=== PATIENT | female | born 1945 | race Caucasian/White ===

== ENCOUNTER → 2017-09-03 09:14 | Outpatient (CLI) | payer MEDICARE, SELFPAY ==
--- NOTE | 2017-09-03 09:15 | RAD_ITS ---
STUDY: X-RAY - RIGHT SHOULDER REASON FOR EXAM: Shoulder pain, no specific injury. TECHNIQUE: 3 view(s) of the shoulder. COMPARISON: None. FINDINGS: Normal glenohumeral articulation. There is mild acromioclavicular arthrosis. Normal acromion. Normal humeral head and visualized proximal humerus. The soft tissue structures are unremarkable. Normal visualized pulmonary apex. RAD/Shoulder min 2 Views IMPRESSION: Mild acromioclavicular arthrosis. Electronically Signed: Jose Alejandro Barton MD at 14:19 EDT Tel , Service support ,
== END ==
PROVIDERS: Family Provider Nurse Practitioner; PCP Nurse Practitioner; Visit Provider Orthopaedic Surgery
DX: M25.511 Pain in right shoulder (principal)
CPT/HCPCS: 73030

== ENCOUNTER → 2017-09-21 16:45 | Outpatient (CLI) | payer MEDICARE, SELFPAY ==
--- NOTE | 2017-09-21 16:45 | DT_ITS ---
This patient was seen during an EMR downtime September 21, 2017 - September 28, 2017. This patient may have a combination of paper and electronic documentation or all paper documentation. All documentation is viewable within the e-chart portion of [employer] for each patient visit.
--- NOTE | 2017-09-21 17:10 | US_ITS ---
STUDY: ULTRASOUND TRANSVAGINAL CLINICAL: Female, 72 years old. Postmenopausal bleeding TECHNIQUE: Transvaginal COMPARISON: None. FINDINGS: Normal uterine size measuring 7.6 x 3.7 x 4.6 cm in maximal craniocaudal dimension. There are no myometrial masses. Normal endometrial thickness measuring 11 mm. There is a tiny vascular structure possibly representing a polyp.,. There is no fluid in the endometrial cavity. Normal uterine cervix. Normal right ovary, measuring 1.8 x 1.5 x 1.2 cm. There are multiple follicles without a dominant cyst. Normal left ovary, measuring 2.1 x 1.8 x 1.3 cm. There are multiple follicles without a dominant cyst. There is no free fluid in the pelvis. US/Transvaginal Non- IMPRESSION: Diffusely thickened endometrial with increased vascularity and possible tiny polyp. Cannot exclude endometrial hyperplasia versus neoplasia Clinical correlation recommend Electronically Signed: Apolinar Toure MD at 19:17 EDT , Service support ,
--- NOTE | 2017-09-24 | IMM_PTH ---
PATIENT: BRANDIN MAY LOC: [facility] U#:[id number] AGE/SX: 79/F ROOM: RE09/21/[address]: MICHAEL Michel : 1945 BED: DIS: SPEC #: [id number] RECD: 09/29/17 10:56 STATUS: ANMOL ARELIS #: [id number] MUNA: 09/24/17 00:[address]: Namrata Lynne NP DEPT: IMMUNOHISTOCHEMISTRY RECD BY: Keysha Diego ENTERED: 09/29/17 10:57 SP TYPE: IMMUNO OTHR DR: MICHAEL Michel NP-C Tissues: Endometrium, NOS Procedures: P53 (initial) PHYSICIAN & INSTITUTION [place] [address] SPECIMEN INFORMATION: Tissue Source: Endometrial lining Clinical Info: Abnormal uterine bleeding Specimen Number: [id number] CPT code: 21386 METHODOLOGY: Deparaffinized sections of prefer/formalin-fixed tissue or PAP/DQ stained slides are incubated with monoclonal/polyclonal antibodies/oligonucleotide probes. Localization is made via biotin free immunoperoxidase method. Appropriate controls are performed and reacted as expected. Results on target cell population are indicated in the following table: RESULTS: ANTIBODY / CLONE RESULT P53 (DO-7) negative These tests were developed and their performance characteristics determined by [facility]. They may not have been cleared or approved by the U.S. Food and Drug Administration. The FDA has determined that such clearance or approval is not necessary. INTERPRETATION: Endometrial biopsy: Negative for malignancy. Luís 09/30/17 Case has been reviewed in consultation with Dr. Valles who concurs with the above diagnosis. IDC:HOSEA
--- NOTE | 2017-09-24 | EMB_PTH ---
PATIENT: BRANDIN MAY LOC: [facility] U#:[id number] AGE/SX: 79/F ROOM: RE09/21/[address]: MICHAEL Michel : 1945 BED: DIS: SPEC #: [id number] RECD: 09/24/17 20:24 STATUS: ANMOL ARELIS #: [id number] MUNA: 09/24/17 00:[address]: Namrata Lynne NP DEPT: SURGICAL PATHOLOGY RECD BY: Keysha Diego ENTERED: 09/28/17 08:47 SP TYPE: ENDOM BX/C ROE DR: MICHAEL Michel NP-C Tissues: Endometrium, NOS Procedures: Surgery Specimen Level IV Comments: @ Ordering doctor for SUGERTRUDE edited from GERRI to THEODORE @ everton BAILEY at 09/28/17846 @ Submitting doctor edited from GERRI to THEODORE @ everton BAILEY at 09/28/1747 HEADER OPERATION: Endometrial biopsy PRE-OP DIAGNOSIS: Abnormal uterine bleeding TISSUE SUBMITTED: Endometrial lining MICROSCOPIC DIAGNOSIS Endometrial biopsy: Fragments of inactive endometrium with extensive glandular and stromal breakdown and metaplastic changes. Negative for hyperplasia or malignancy. HOSEA:alyson 09/28/17 COMMENT Immunohistochemistry ([id number]) for p53 supports the above diagnosis. Correlation with clinical findings and appropriate follow up are necessary, rebiopsy is suggested if clinically indicated. This case is discussed with Mahesh Maged on 09/29/17.. Case has been reviewed in consultation with Dr. Leary who concurs with the above diagnosis. IDC:AM MICROSCOPIC DESCRIPTION Slides are reviewed. GROSS DESCRIPTION Received is one container labeled with the patient's name and not further designated. The specimen consists of multiple fragments of hemorrhagic soft tissue that in aggregate measure 2.5 x 1.5 x 0.1 cm. The specimen is totally submitted in one cassette. / HOSEA:alyson 09/25/17 TC:5 CPT: 61875
[2017-09-25 20:22] LABS: Prolactin 11.2 ng/mL; Thyroid Stim Hormone (TSH) 1.99 uIU/mL (0.358-3.74)
[2017-09-25 20:24] LABS: Hemoglobin 15.7 g/dl (12.0-15.0); Mean Corp Hgb Conc 32.7 g/gl (32-36); Mean Corpuscular Hgb 30.4 pg (27.0-32.0); Mean Corpuscular Volume 92.8 fL (81-99); Mean Platelet Vol. 11.5 fl (6.2-12.0); Platelet Count 260 K/mm3 (150-450); RBC Distribution Width CV 13.6 % (11.6-14.6); RBC Distribution Width SD 44.7 fl (35.1-43.9); Red Blood Count 5.17 M/mm3 (4.2-5.4); White Blood Count 9.4 K/mm3 (4.4-11.0)
[2017-09-25 20:25] LABS: Absolute Lymphocyte Count 2.22 X10^3/ul (0.83-4.51); Absolute Neutrophil Count 6.2 X10^3/uL (2.0-7.7); Basophil# 0.07 X10^3/uL; Basophil% 0.7 % (0-1); Eosinophil# 0.11 X10^3/uL; Eosinophils% 1.2 % (0-5); Lymphocyte # 2.22 X10^3/ul (4.0); Lymphocyte % 23.7 % (19-41); Monocyte# 0.76 X10^3/uL; Monocyte% 8.1 % (0-10); Neutrophil % 66.1 % (47-70); POSITIVE COUNT NO; POSITIVE DIFFERENTIAL NO; POSITIVE MORPHOLOGY NO
[2017-09-25 20:26] LABS: International Normalized Ratio 1.1; Partial Thromboplast Time 30.7 Seconds (24.1-36.2); Prothrombin Time (Protime)PT. 13.8 SECONDS (11.7-14.9)
== END ==
PROVIDERS: Family Provider Nurse Practitioner; PCP Nurse Practitioner; Visit Provider Nurse Practitioner Gerontology
DX: N95.0 Postmenopausal bleeding (principal); N93.9 Abnormal uterine and vaginal bleeding, unspecified
CPT/HCPCS: 36415; 76830; 84146; 84443; 85025; 85610; 85730; 88305; 88342

== ENCOUNTER → 2017-09-24 09:03 | Outpatient (CLI) | payer MEDICARE, SELFPAY ==
--- NOTE | 2017-09-24 09:03 | DT_ITS ---
This patient was seen during an EMR downtime September 21, 2017 - September 28, 2017. This patient may have a combination of paper and electronic documentation or all paper documentation. All documentation is viewable within the e-chart portion of [employer] for each patient visit.
== END ==
PROVIDERS: Visit Provider Nurse Practitioner Women's Health
DX: N93.9 Abnormal uterine and vaginal bleeding, unspecified (principal)

== ENCOUNTER 2017-10-22 11:34 | Day surgery (SDC) | payer MEDICARE, SELFPAY ==
--- NOTE | 2017-10-19 10:39 | EKG12_ITS ---
Test Reason : PRE OP Blood Pressure : / mmHG Vent. Rate : 051 BPM Atrial Rate : 051 BPM P-R Int : 188 ms QRS Dur : 082 ms QT Int : 428 ms P-R-T Axes : 039 -22 061 degrees QTc Int : 394 ms Sinus bradycardia Minimal voltage criteria for LVH, may be normal variant ST abnormality, possible digitalis effect Abnormal ECG Confirmed by AZAM MELENDEZ, CLAIRE ([id number]), television news video editor BERNA FLOREZ ([id number]) on 10/22/2017 3:02:26 PM Referred By: Bailey Molina Confirmed By:CLAIRE NASCIMENTO MD
--- NOTE | 2017-10-19 10:40 | PCM.HPOB.BLA ---
- Problem List (1) Post-menopausal bleeding Status: Acute History and Physical Date of Admission: 10/22/17 MR#:[id number]:[id number] Name: BRANDIN MAY [facility] #:[id number] : 1945 Provider:Bailey Molina MD Age/Sex: 72/F [place] [place]igned Intake Vital Signs 10/19/17 Height 5 ft 2 in 10/19/17 Weight: 249 lb 10/19/17 Body Mass Index (BMI) 45.5 10/19/17 Blood Pressure 145/81 Intake Visit Reasons: Pre Op D&C Hoop Expander Required: No Accompanied by: self Is patient in pain?: No Allergies adhesive tape Adverse Reaction (Verified 10/19/17 10:03) REDNESS TO SKIN Vxdqgjr-Qgf-Idg Reductase Inhibitor Adverse Reaction (Verified 10/19/17 10:03) Other Medications Acetaminophen [Tylenol] 500 - 1,000 mg PO Q6H PRN PRN 12/22/13 [History Confirmed 10/19/17] Amlodipine [Norvasc] 5 mg PO DAILY 12/22/13 [History Confirmed 10/19/17] Enalapril Maleate [Vasotec] 20 mg PO BID 12/22/13 [History Confirmed 10/19/17] Etodolac 400 mg PO DAILY 12/22/13 [History Confirmed 10/19/17] Fluticasone 0.05% [Flonase Nasal [place]] 1 spray NASAL DAILY PRN 12/22/13 [History Confirmed 10/19/17] Lorazepam [Ativan] 0.5 mg PO DAILY PRN PRN 12/22/13 [History Confirmed 10/19/17] Omeprazole [Prilosec] 20 mg PO DAILY 12/22/13 [History Confirmed 10/19/17] Albuterol IH (ProAir) [Proair Hfa (SP)Vent Pts] 2 puff INHALATION Q4H PRN PRN 06/12/16 [History Confirmed 10/19/17] Cholecalciferol (Vitamin D3) [Vitamin D3] 2,000 unit PO DAILY 06/12/16 [History Confirmed 10/19/17] Aspirin E.C. [Ecotrin] 81 mg PO MOWEFR 10/15/17 [History Confirmed 10/19/17] Turmeric/Turmeric Root Extract [Turmeric 500 mg Capsule] 1 ea PO BID 10/15/17 [History Confirmed 10/19/17] Is last menstrual period known: No Post menopausal: Yes Patient : No : No PFSH Medical History Diabetes (Acute) History of hysteroscopy (Acute) Surgical History H/O total knee replacement (Acute) H/O tubal ligation (Acute) gallbladder removed (Acute) Family History Father Hypertension Social History adopted: No housing: house number of children: 2 current occupational status: employed current occupation: [employer] Smoking Status: Never smoker alcohol intake: never substance use type: does not use seatbelt use: always do you feel safe at home: Yes additional social history: HPI Pre Op D&C: Details: BRANDIN MAY is a 72 year old who presents for postmenopausal bleeding. SHe initially had some malaise and din't feel well and then started bleeding, she was seen within a few days and had a biopsy that was normal but had a lot of tissue. it was recommended to have sampling and had a thickened endometrium. last hgA1C was 5.7. Pregancy History 3 Elective abortions Hx Para 2 Spontaneous abortions Hx # Term Pregnancies Ectopic pregnancies Hx # Pregnancies Multiple births # of living children 2 Past Pregnancies Del. Date Name GA/Weeks Outcome Route Bth Weight Gen Labor Lgth Anesthesia Del [facility] Provider FOB Unknown 1973- Mima Unknown 1976- Lee IBARRA Const Constitutional: Denies poor appetite, headache(s), fever(s), increased appetite, weight gain, weight loss or fatigue Cardio Card: Denies chest pain Resp Resp: Denies dyspnea or cough GI GI: Reports as per HPI; denies vomiting, nausea, abdominal pain or constipation : Reports as per HPI; denies urinary urgency, vaginal discharge, urinary frequency, vaginal itching, vaginal odor, vaginal dryness, urinary incontinence, urinary hesitancy, difficulty urinating, painful urination or nipple discharge Skin Skin/Breast: Denies breast lump, breast pain, breast skin changes, nipple discharge or change in hair Exam Const General: cooperative, healthy appearing, comfortable, no acute distress, well developed Nutritional Appearance: average body habitus Orientation: alert HENMT Head: normal to inspection, normocephalic Neck Neck: normal visual inspection, trachea midline Thyroid: thyroid normal Resp Effort & Inspection: normal respiratory effort GI Inspection: normal to inspection, non-distended Palpation: soft, no hepatosplenomegaly Skin General: no rashes or lesions noted Assessment & Plan Problems 1. Benign hypertension I10 2. Type 2 diabetes mellitus without complication, without long-term current use of insulin E11.9 3. Morbid obesity E66.01 4. Dyslipidemia E78.5 Plan recommend d and c hysteroscopy. discussed surgical risks including risks of anesthesia, infection, bleeding, injury to bowel, bladder or blood vessels, and patient wishes to proceed with surgery. 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
[2017-10-22] VITALS (7 sets, daily range): BP systolic 135–152; BP diastolic 78–85; PULSE 59–68; RESP 16–18; TEMP 36.5–36.9; O2SAT 95–98; BMI 43.9
--- NOTE | 2017-10-22 | IMM_PTH ---
PATIENT: BRANDIN MAY LOC: [facility] [place] U#:[id number] AGE/SX: 72/F ROOM: RE10/22/[address]: Dr. Bailey Molina MD : 1945 BED: DIS: 10/22/2017 SPEC #: [id number] RECD: 10/26/17 13:00 STATUS: ANMOL REEbony #: [id number] MUNA: 10/22/17 00:[address]: Bailey Molina DEPT: IMMUNOHISTOCHEMISTRY RECD BY: Keysha Diego ENTERED: 10/26/17 13:00 SP TYPE: IMMUNO OTHR DR: Orquidea Cortes, PLUSH WEAVER-C Tissues: Endometrium, NOS Procedures: p16 (initial) KI-67 (add) PHYSICIAN & [place] [address] SPECIMEN INFORMATION: Tissue Source: Endometrial curettings Clinical Info: Postmenopausal bleeding Specimen Number: [id number] CPT code: 37336, 61920 METHODOLOGY: Deparaffinized sections of prefer/formalin-fixed tissue or PAP/DQ stained slides are incubated with monoclonal/polyclonal antibodies/oligonucleotide probes. Localization is made via biotin free immunoperoxidase method. Appropriate controls are performed and reacted as expected. Results on target cell population are indicated in the following table: RESULTS: ANTIBODY / CLONE RESULT P16 (E6H4) positive, patchy and focal Ki-67 (30-9) negative These tests were developed and their performance characteristics determined by [facility]. They may not have been cleared or approved by the U.S. Food and Drug Administration. The FDA has determined that such clearance or approval is not necessary. INTERPRETATION: Endometrial curettings: Fragments of detached and unoriented fragments of squamous epithelium with minimal changes suspicious for HPV cytopathic effects. HOSEA:alyson 10/27/17
[2017-10-22 12:21] LABS: Anion Gap 6 (5-15); BUN 24 mg/dL (7-18); BUN/Creat Ratio 24.4 RATIO (10-20); Calcium,Total 9.1 mg/dL (8.5-10.1); Chloride 108 mmol/L (98-107); Creatinine, Serum 0.98 mg/dL (0.55-1.02); EST Glomerular Filtration Rate 60 mL/min (>60); Est Glom Filt Rate - Afr Amer 72 mL/min (>60); Estimated Creatinine Clearance 44.19 ml/min; Glucose 92 mg/dL (74-106); Sodium Level 145 mmol/L (136-145)
[2017-10-22 12:26] LABS: Bedside Glucose 98 mg/dL (70-110)
--- NOTE | 2017-10-22 13:20 | EMB_PTH ---
PATIENT: BRANDIN MAY LOC: [facility] [place] U#:[id number] AGE/SX: 72/F ROOM: RE10/22/[address]: Dr. Bailey Molina MD : 1945 BED: DIS: 10/22/2017 SPEC #: [id number] RECD: 10/23/17 06:57 STATUS: ANMOL ARELIS #: [id number] MUNA: 10/22/17 13:[address]: Bailey Molina DEPT: SURGICAL PATHOLOGY RECD BY: Lacho Mock ENTERED: 10/23/17 11:40 SP TYPE: ENDOEdilson BX/C ROE DR: Orquidea Cortes SHELL PLATERMaty Tissues: Endometrium, NOS Procedures: Surgery Specimen Level IV HEADER OPERATION: Hysteroscopy, dilation and curettage PRE-OP DIAGNOSIS: Postmenopausal bleeding TISSUE SUBMITTED: Endometrial curettings MICROSCOPIC DIAGNOSIS Endometrial curettings: Fragments of inactive endometrium. Detached and unoriented fragments of squamous epithelium with atrophic changes and focal minimal changes suspicious for HPV cytopathic effects.. See comment. SJ:alyson 10/26/17 COMMENT Results from immunohistochemistry ([id number]) for surrogate HPV marker (p16) will be reported separately. Please make reference to previous specimen ([id number]), endometrial biopsy with diagnosis of inactive endometrium with extensive glandular and stromal breakdown and metaplastic changes. Case has been reviewed in consultation with Dr. Leary who concurs with the above diagnosis. IDC:AM MICROSCOPIC DESCRIPTION Slides are reviewed. GROSS DESCRIPTION Received in fixative is one container labeled with the patient's name and designated endometrial curettings. The specimen consists of multiple irregular fragments of dark manzo soft tissue that in aggregate measure 2 x 1 x <0.1 cm. The specimen is totally submitted in one cassette. / AM:alyson 10/23/17 TC:5 CPT: 02606
--- NOTE | 2017-10-22 14:05 | PCM.OPRPT ---
Problem List (1) Post-menopausal bleeding Status: Acute Report of Operation Date of Procedure: 10/22/17 Pre-Operative Diagnosis: postmenopausal bleeding Post-Operative Diagnosis: same Surgery/Procedure Performed:: d and c hysteroscopy Description of Surgical Findings:: Mild irregularity to the posterior wall Type of Anesthesia:: Local MAC Special Medications: none Specimen's removed: emc Drains: none Estimated Blood Loss (mL): Minimal Fluids Replaced: crystalloid Description of Procedure: Patient was prepped and draped in a normal sterile fashion under MAC anesthesia. A weighted speculum was placed in the vagina and the anterior lip of the cervix was grasped with a single-tooth tenaculum. A paracervical block was placed with 1% lidocaine. Cervix was progressively dilated to allow passage of a 5 mm hysteroscope. The lining was fully visualized and noted to have a mild abnormality to the posterior wall. Uterine sounded to 8 cm. Curettage was performed and a scant amount was collected, sent to pathology. All instruments were removed from the vagina and excellent hemostasis was noted. Patient was awoken and taken to recovery in stable condition. Grafts/Implants Used: none - Complications None - Admit VTE Documentation VTE Present on Admission: No VTE Mechan Device Prophylaxis: SCD's
--- NOTE | 2017-10-22 14:07 | PCM.DC.D&C ---
Discharge Diet: No Restrictions Discharge Activity: Return to Normal Activity, May Shower, May Take a Tub Bath Allergies/Adverse Reactions: Allergies adhesive tape Adverse Reaction (Verified 10/19/17 10:03) REDNESS TO SKIN Ubpbsfd-Ibh-Yjs Reductase Inhibitor Adverse Reaction (Verified 10/19/17 10:03) Other Medications to take at Discharge Acetaminophen [Tylenol] 500 - 1,000 mg PO Q6H PRN PRN 12/22/13 Amlodipine [Norvasc] 5 mg PO DAILY 12/22/13 Enalapril Maleate [Vasotec] 20 mg PO BID 12/22/13 Etodolac 400 mg PO DAILY 12/22/13 Fluticasone 0.05% [Flonase Nasal [place]] 1 spray NASAL DAILY PRN 12/22/13 Lorazepam [Ativan] 0.5 mg PO DAILY PRN PRN 12/22/13 Omeprazole [Prilosec] 20 mg PO DAILY 12/22/13 Albuterol IH (ProAir) [Proair Hfa (SP)Vent Pts] 2 puff INHALATION Q4H PRN PRN 06/12/16 Cholecalciferol (Vitamin D3) [Vitamin D3] 2,000 unit PO DAILY 06/12/16 Aspirin E.C. [Ecotrin] 81 mg PO MOWEFR 10/15/17 Turmeric/Turmeric Root Extract [Turmeric 500 mg Capsule] 1 ea PO BID 10/15/17 Primary Care Physician: Orquidea Cortes [Primary Care Provider] - Test Results: Please Follow Up With: Bailey Molina MD - [phone]
== END 2017-10-22 15:44 | disposition home or self-care (01) ==
LOC: SDC 11:36 → AC 11:36
PROVIDERS: Family Provider Nurse Practitioner; PCP Nurse Practitioner; Visit Provider Obstetrics & Gynecology
PROC: 0UDB8ZZ Extraction of Endometrium, Via Natural or Artificial Opening Endoscopic (ICD-10-PCS; CPT 58558; principal; 2017-10-22 13:10)
DX: N95.0 Postmenopausal bleeding (principal); I10 Essential (primary) hypertension; E11.9 Type 2 diabetes mellitus without complications; E78.00 Pure hypercholesterolemia, unspecified; K21.9 Gastro-esophageal reflux disease without esophagitis; F32.9 Major depressive disorder, single episode, unspecified; F41.9 Anxiety disorder, unspecified; E66.01 Morbid (severe) obesity due to excess calories; Z68.41 Body mass index [BMI] 40.0-44.9, adult; Z78.0 Asymptomatic menopausal state; Z79.82 Long term (current) use of aspirin; Z79.52 Long term (current) use of systemic steroids; Z79.899 Other long term (current) drug therapy
CPT/HCPCS: 58558; 80048; 82962; 86850; 86900; 88305; 88341; 88342; 93005; J7120

== ENCOUNTER → 2017-11-24 16:31 | Outpatient (CLI) | payer MEDICARE, SELFPAY ==
--- NOTE | 2017-11-24 16:33 | BI_ITS ---
MAMMOGRAPHY - BILATERAL SCREENING 3-D MITCHEL SYNTHESIS REASON FOR EXAM: Female, 72 years old. Bilateral Screening 3-D tomosynthesis PERTINENT HISTORY: Asymptomatic. Family breast carcinoma, paternal grandmother age 60. TECHNIQUE: 2-D mammograms and 3-D Mitchel synthesis of the breast (s) were performed. CAD was performed. COMPARISON: 10/20/2016 through 09/27/2014. FINDINGS: The breast composition is almost entirely fat. No new asymmetric density, dominant mass, dense spiculated masses, abnormal clustered microcalcifications, architectural distortion, skin thickening or nipple retraction identified. Coarse benign-appearing calcifications. No new abnormality identified with tomosynthesis. There has been no significant change since the prior study. BI/SCREENING MAMM (CAD), BILAT IMPRESSION: No mammographic signs of malignancy. Routine yearly mammograms recommended. ASSESSMENT CATEGORY: BIRADS Category 2: Benign. A letter regarding these results will be sent to the patient by the facility within 30 days. FOLLOW UP RECOMMENDATION: Yearly follow up mammogram recommended. (A) Negative results should not deter biopsy as a palpable lesion should be followed on clinical grounds and biopsy performed if clinically persistent for 3 months or increasing size. Approximately 10% of breast cancers are not detected by mammography. A normal mammogram should not delay biopsy of a clinically suspicious abnormality. . Electronically Signed: Piero Morejon, at 17:36 EDT Tel , Service support ,
== END ==
PROVIDERS: Family Provider Nurse Practitioner; PCP Nurse Practitioner; Visit Provider Nurse Practitioner
DX: Z12.31 Encounter for screening mammogram for malignant neoplasm of breast (principal)
CPT/HCPCS: 77063; 77067

== ENCOUNTER → 2018-02-05 15:10 | Outpatient (CLI) | payer MEDICARE, SELFPAY ==
[2018-02-05 16:43] LABS: Microalbumin,Random Urine 29.9 mg/L (NO RANGE EST.); Microalbumin:Creatinine Ratio 14.7 mg/g CRE (<30 mg/g CRE)
== END ==
PROVIDERS: Family Provider Nurse Practitioner; PCP Nurse Practitioner; Referring Provider Nurse Practitioner; Visit Provider Nurse Practitioner
DX: E11.9 Type 2 diabetes mellitus without complications (principal)
CPT/HCPCS: 82043; 82570

== ENCOUNTER → 2018-03-23 13:39 | Outpatient (CLI) | payer MEDICARE, SELFPAY ==
--- NOTE | 2018-03-23 13:53 | BD_ITS ---
STUDY: DUAL ENERGY X-RAY ABSORPTIOMETRY / DXA REASON FOR EXAM: Female, 72 years old. The patient is postmenopausal. Loss of height. TECHNIQUE: Bone Mineral Density (BMD) measurements of lumbar spine and bilateral hips were obtained. COMPARISON: Comparison is made with prior study dated October 16, 2015. FINDINGS: Lumbar Spine (L1-L4): g/cm2 (1.324) / T-score (1.0) / Z-score (2.7) Findings are suggestive of normal bone density with a low fracture risk. Left Femur Total: g/cm2 (0.972) / T-score (-0.3) / Z-score (1.2) Left Femoral Neck: g/cm2 (0.903) / T-score (-1.0) / Z-score (0.7) Right Femur Total: g/cm2 (0.949) / T-score (-0.5) / Z-score (1.0) Right Femoral Neck: g/cm2 (0.919) / T-score (-0.9) / Z-score (0.9) The T-Scores on the most recent prior examination were: Lumbar Spine (L1-L4): There has been improvement of bone density since the previous examination. Left Femur Total: which represents a worsening of 3.6%. Right Femur Total: which represents a worsening of 2.0%. BD/Dexa Bone Density Study IMPRESSION: The patient is considered normal as outlined below according to World Saurav Organization (WHO) criteria with a low fracture risk. There has been worsening of bone density since the previous examination. Reference Information: The T-score is the number of standard deviations above or below the standard which is normal for young adults at their peak bone mineral density. The World Health Organization (WHO) interprets the T-scores as follows: Above -1 Normal bone density Between -1 and -2.5 Osteopenia Equal to / or below -2.5 Osteoporosis As a practical clinical guideline, osteopenia may be graded as follows: Mild -1 through -1.5 Moderate -1.6 through -2.0 Severe -2.1 through -2.4 The Z-score is the number of standard deviations above or below age-matched controls. A Z-score of less than -1.5 would be considered abnormal. References: 1. NIH Osteoporosis and Related Bone Diseases http://www.osteo.org 2. International Society for Clinical Densitometry http://www.iscd.org 3. National Osteoporosis Foundation http://www.nof.org Electronically Signed: Yon Terry MD at 15:41 EST Tel [phone], Service support ,
== END ==
PROVIDERS: Family Provider Nurse Practitioner; PCP Nurse Practitioner; Visit Provider Nurse Practitioner
DX: Z78.0 Asymptomatic menopausal state (principal)
CPT/HCPCS: 77080

== ENCOUNTER → 2018-11-12 10:48 | Outpatient (CLI) | payer MEDICARE, SELFPAY ==
--- NOTE | 2018-11-12 10:52 | RAD_ITS ---
STUDY: X-RAY CHEST REASON FOR EXAM: Female, 73 years old. Cough and chest pain TECHNIQUE: PA and lateral views of the chest. COMPARISON: 03/16/2017 FINDINGS: There are interstitial fibrotic changes of the lungs. There is no demonstrated pleural abnormality. Normal size heart. Normal mediastinum and chris. Normal visualized pulmonary arteries. Normal visualized aortic arch and descending thoracic aorta. There are diffuse degenerative changes of the visualized thoracic spine. Normal visualized ribs, clavicles, and shoulders. There is no demonstrated abnormality of the visualized soft tissue structures of the upper abdomen. RAD/Chest PA and Lateral IMPRESSION: No acute pulmonary process Electronically Signed: Lupillo Guido MD at 11:23 EDT , Service support ,
[2018-11-12 13:04] LABS: BNP,B-Type NATRIURETIC PEPTIDE 14.2 pg/mL (0-100)
[2018-11-12 13:28] LABS: D-Dimer Quantitative (DVT/PE) 0.62 FEU/ug/m (0.27-0.49)
== END ==
LOC: HPRAD 10:49 → LABSPEC 12:20
PROVIDERS: Family Provider Nurse Practitioner; PCP Nurse Practitioner; Referring Provider Nurse Practitioner; Visit Provider Nurse Practitioner
DX: R05 Cough (principal); R06.02 Shortness of breath; T17.308A Unspecified foreign body in larynx causing other injury, initial encounter; X58.XXXA Exposure to other specified factors, initial encounter; Y93.9 Activity, unspecified; Y92.9 Unspecified place or not applicable; Y99.9 Unspecified external cause status
CPT/HCPCS: 71046; 83880; 85379

== ENCOUNTER → 2018-11-12 14:17 | Outpatient (CLI) | payer MEDICARE, SELFPAY ==
--- NOTE | 2018-11-12 14:46 | CT_ITS ---
STUDY: CTA CHEST REASON FOR EXAM: Female, 73 years old. Cough. Chest pain. Elevated d-dimer. RADIATION DOSAGE (If Supplied By Facility): CTDIvol = ( 11.43 ) mGy, DLP = ( 472.50 ) mGycm TECHNIQUE: The examination was performed with the intravenous administration of 100 IV Isovue 300. Post-processing of the angiographic images was performed, with multiplanar reformation and 3D reconstruction. Individualized dose optimization techniques were used for this CT. COMPARISON: X-ray. FINDINGS: Normal enhancement of the main pulmonary artery and right and left pulmonary arteries. Normal enhancement of the bilateral peripheral pulmonary arteries. There is no demonstrated pulmonary embolism. There is atherosclerotic calcification of the aortic arch with tortuosity. There is no demonstrated aortic dissection. Normal heart and pericardium. Normal mediastinum. Normal hilar regions. Normal visualized trachea and bronchi. The lungs are well expanded. There are mild fibrotic densities and granulomatous calcifications. Normal pleura. Normal chest wall structures. Mild degenerative change of the spine. Compression deformity in the lower thoracic spine. There is increased thoracic kyphosis. Normal visualized upper abdomen. CT/CTA Chest W/WO Contrast IMPRESSION: CTA chest examination, without a demonstrated pulmonary embolism or arterial dissection. Electronically Signed: Luis Fernando Zafar MD at 15:33 EDT , Service support ,
[2018-11-12 15:05] LABS: CREATININE FINGERSTICK 0.8 mg/dL (0.55-1.02)
== END ==
PROVIDERS: Family Provider Nurse Practitioner; PCP Nurse Practitioner; Referring Provider Nurse Practitioner; Visit Provider Nurse Practitioner
DX: R74.9 Abnormal serum enzyme level, unspecified (principal); R05 Cough; R06.02 Shortness of breath; T17.308A Unspecified foreign body in larynx causing other injury, initial encounter; X58.XXXA Exposure to other specified factors, initial encounter; Y93.9 Activity, unspecified; Y92.9 Unspecified place or not applicable; Y99.9 Unspecified external cause status
CPT/HCPCS: 71046; 71275; 83880; 85379; Q9967

== ENCOUNTER → 2018-11-19 07:49 | Outpatient (CLI) | payer MEDICARE, SELFPAY ==
--- NOTE | 2018-11-19 08:03 | RAD_ITS ---
STUDY: X-RAY - ESOPHAGUS (BARIUM SWALLOW) WITH FLUOROSCOPY REASON FOR EXAM: Female, 73 years old. Dysphagia. TECHNIQUE: 17 view(s) of the esophagus were obtained following swallowing of barium. FLUOROSCOPY TIME (if supplied): (0:24) minutes/seconds COMPARISON: None. FINDINGS: There is no demonstrated esophageal foreign body. There is no demonstrated stricture or mucosal abnormality. There is a small hiatal hernia of the fundus of the stomach. The patient ingests the 12 mm tablet and barium without any difficulty. There is atherosclerotic calcification of the aortic arch with tortuosity of the descending aorta. Normal visualized pulmonary parenchyma. There are diffuse degenerative changes of the visualized thoracic spine. RAD/Esophagus Only IMPRESSION: Small sliding hiatal hernia without gastroesophageal reflux. Electronically Signed: Yon Terry, at 14:41 EDT , Service support ,
== END ==
PROVIDERS: Family Provider Nurse Practitioner; PCP Nurse Practitioner; Referring Provider Nurse Practitioner; Visit Provider Nurse Practitioner
DX: R13.10 Dysphagia, unspecified (principal); R05 Cough; R06.02 Shortness of breath; T17.308A Unspecified foreign body in larynx causing other injury, initial encounter; X58.XXXA Exposure to other specified factors, initial encounter; Y93.9 Activity, unspecified; Y92.9 Unspecified place or not applicable; Y99.9 Unspecified external cause status
CPT/HCPCS: 74220

== ENCOUNTER → 2019-04-04 15:46 | Outpatient (CLI) | payer MEDICARE, SELFPAY ==
--- NOTE | 2019-04-04 15:49 | BI_ITS ---
MAMMOGRAPHY - BILATERAL SCREENING REASON FOR EXAM: Female, 73 years old. Routine annual screening examination. PERTINENT HISTORY: Grandmother with breast cancer. TECHNIQUE: Digital bilateral breast mitchel (3D mammographic acquisition) in the CC and MLO projections. 2-D mediolateral oblique (MLO) and craniocaudad (CC) views of both breasts were obtained. CAD: Full Field Digital Mammography with Computer Added Detection was performed. COMPARISON: Comparison is made with prior study dated November 24, 2017 and October 20, 2016. FINDINGS: Breast Composition: The breasts are almost entirely fatty. There are no dominant masses or suspicious calcifications. No other significant abnormalities are identified. There has been no significant change since the prior study. BI/SCREEN MAMM (CAD) W/MITCHEL BILAT IMPRESSION: Stable bilateral screening mammogram. Yearly follow-up mammogram recommended. (A) ASSESSMENT CATEGORY: BIRADS Category 1: Negative. A letter regarding these results will be sent to the patient by the facility within 30 days. Approximately 10% of breast cancers are not detected by mammography. A normal mammogram should not delay biopsy of a clinically suspicious abnormality. [id number] Electronically Signed: Yon Terry, at 10:10 EST , Service support ,
== END ==
PROVIDERS: Family Provider Nurse Practitioner; PCP Nurse Practitioner; Referring Provider Nurse Practitioner; Visit Provider Nurse Practitioner
DX: Z12.31 Encounter for screening mammogram for malignant neoplasm of breast (principal)
CPT/HCPCS: 77063; 77067

== ENCOUNTER → 2020-04-05 10:10 | Outpatient (CLI) | payer MEDICARE, SELFPAY ==
--- NOTE | 2020-04-05 10:12 | BI_ITS ---
MAMMOGRAPHY - BILATERAL SCREENING REASON FOR EXAM: Female, 74 years old. Routine annual screening examination. PERTINENT HISTORY: Grandmother with breast cancer. TECHNIQUE: Digital bilateral breast mitchel (3D mammographic acquisition) in the CC and MLO projections. 2-D mediolateral oblique (MLO) and craniocaudad (CC) views of both breasts were obtained. CAD: Full Field Digital Mammography with Computer Added Detection was performed. COMPARISON: Comparison is made with prior examination dated 04/04/2019 and 11/24/2017. FINDINGS: Breast Composition: The breasts are almost entirely fatty. There are no dominant masses or suspicious calcifications. No other significant abnormalities are identified. There has been no significant change since the prior study. BI/SCREEN MAMM (CAD) W/MITCHEL BILAT IMPRESSION: Stable bilateral screening mammogram. Yearly follow-up mammogram recommended. (A) ASSESSMENT CATEGORY: BIRADS Category 1: Negative. A letter regarding these results will be sent to the patient by the facility within 30 days. Approximately 10% of breast cancers are not detected by mammography. A normal mammogram should not delay biopsy of a clinically suspicious abnormality. [id number] Electronically Signed: Yon Terry, at 11:21 EST , Service support ,
--- NOTE | 2020-04-05 10:16 | BD_ITS ---
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 COMPARISON: Comparison is made with prior study dated 03/23/2018. FINDINGS: Lumbar Spine (L1-L4): g/cm2 (1.400) / T-score (1.7) / Z-score (3.4) Findings are suggestive of normal bone density with a low fracture risk. Left Femur Total: g/cm2 (1.005) / T-score (0.0) / Z-score (1.6) Left Femoral Neck: g/cm2 (0.903) / T-score (-1.0) / Z-score (0.8) Right Femur Total: g/cm2 (0.998) / T-score (-0.1) / Z-score (1.5) Right Femoral Neck: g/cm2 (0.949) / T-score (-0.6) / Z-score (1.2) The T-Scores on the most recent prior examination were: Lumbar Spine (L1-L4): There has been improvement of bone density since the previous examination. Left Femur Total: which represents an improvement of 3.4%. Right Femur Total: which represents an improvement of 5.2%. BD/Dexa Bone Density Study IMPRESSION: The patient is considered normal as outlined below according to World Saurav Organization (WHO) criteria with a low fracture risk. There has been improvement of bone density since the previous examination. Reference Information: The T-score is the number of standard deviations above or below the standard which is normal for young adults at their peak bone mineral density. The World Health Organization (WHO) interprets the T-scores as follows: Above -1 Normal bone density Between -1 and -2.5 Osteopenia Equal to / or below -2.5 Osteoporosis As a practical clinical guideline, osteopenia may be graded as follows: Mild -1 through -1.5 Moderate -1.6 through -2.0 Severe -2.1 through -2.4 The Z-score is the number of standard deviations above or below age-matched controls. A Z-score of less than -1.5 would be considered abnormal. References: 1. NIH Osteoporosis and Related Bone Diseases www osteo.org 2. International Society for Clinical Densitometry www iscd.org 3. National Osteoporosis Foundation www nof.org Electronically Signed: Yon Terry, at 12:26 EST , Service support ,
== END ==
PROVIDERS: PCP Nurse Practitioner; Referring Provider Nurse Practitioner; Visit Provider Nurse Practitioner
DX: Z78.0 Asymptomatic menopausal state (principal); Z12.31 Encounter for screening mammogram for malignant neoplasm of breast
CPT/HCPCS: 77063; 77067; 77080

== ENCOUNTER 2020-09-16 08:13 | Inpatient (IN) | payer MEDICARE, SELFPAY ==
[2020-09-16] VITALS (19 sets, daily range): BP systolic 104–151; BP diastolic 51–74; PULSE 61–96; RESP 16–22; TEMP 36.9–37.8; O2SAT 88–97; BMI 46.7
--- NOTE | 2020-09-16 09:08 | CT_ITS ---
EXAM: CT ABDOMEN AND PELVIS WITH INTRAVENOUS CONTRAST CLINICAL INDICATION: Abdominal pain TECHNIQUE: Helically acquired images were obtained of the abdomen and pelvis with intravenous contrast. This CT exam was performed using one or more of the following dose reduction techniques: automated exposure control, adjustment of the mA and/or kV according to patient size, and/or use of iterative reconstruction technique. This report was created using Vinted report generation technology. CONTRAST: Oral Gastrografin and IV injection of 100mL Isovue-370 COMPARISON: None. FINDINGS: LOWER THORAX: Mild atelectasis or scarring in the lower lungs. No cardiomegaly. No significant pericardial effusion. ABDOMEN: LIVER: Unremarkable. Homogeneous. No focal mass. GALLBLADDER AND BILE DUCTS: Status post cholecystectomy. No intra- or extrahepatic biliary ductal dilation. PANCREAS: Unremarkable. No focal cystic or solid mass. SPLEEN: Unremarkable. Normal size without focal cystic or solid mass. ADRENALS: Unremarkable. No nodules. KIDNEYS AND URETERS: 2.9 cm left renal cyst appears to be simple. Normal renal size and position. No hydronephrosis. STOMACH AND BOWEL: Unremarkable. No stomach or bowel distention. No focal inflammatory change. PELVIS: APPENDIX: Thickening of the appendix measuring up to 11 mm with mild stranding concerning for early acute appendicitis. BLADDER: Unremarkable. REPRODUCTIVE: Unremarkable as visualized. No mass. ABDOMEN and PELVIS: INTRAPERITONEAL SPACE: Unremarkable. No ascites or other fluid collection. No free air. BONES/JOINTS: Degenerative changes in the spine. Mild compression fracture of T11 and L2 vertebrae probably chronic. Grade 1 anterolisthesis of L4 over L5. No suspicious lytic or blastic abnormality. SOFT TISSUES: Unremarkable. No discrete abdominal or pelvic wall hernia. VASCULATURE: Unremarkable. Abdominal aorta is non-dilated. LYMPH NODES: Unremarkable. No enlarged lymph nodes. CT/Abdomen/Pelvis WITH Contrast IMPRESSION: 1. Status post cholecystectomy. 2. Thickening of the appendix measuring up to 11 mm with mild stranding concerning for acute appendicitis. Electronically Signed: Bob Mcfarland MD at 11:43 EDT Tel , Service support ,
--- NOTE | 2020-09-16 09:12 | EDS_ITS ---
HPI HPI - GI History of Present Illness Chief Complaint: Abd Pain Informant: patient Abdominal Pain/Flank Pain Onset: Yesterday Context: Gradual Onset Timing: Continuous Quality: Sharp and - (Throbbing) Location: RUQ and RLQ Worsened by: Movement Relieved by: Nothing Nausea/Vomiting/Emesis GI Symptom: Positive for Nausea and Vomiting Quality: Positive for Nonbilious; Negative for Coffee ground and Hematemesis Episodes: 1 Diarrhea/Melena/Hematochezia GI Symptom: Negative for Diarrhea, Melena and Hematochezia Associated Symptoms Associated Symptoms: Negative for Dysuria and Hematuria Narrative Narrative: Patient presents with abdominal pain that began yesterday. Patient states the pain became severe this morning when she woke up. Patient states pain is over the right upper and right lower quadrants. Patient describes the pain as throbbing. Patient states the pain has been constant. Patient states the pain is worse with movement. Patient admits to nausea with one episode of vomiting today. Patient denies any diarrhea, melena, or hematochezia. Patient denies any dysuria or hematuria. Patient denies any fevers or chills. [facility] Medical History (Updated 09/16/20 @ 15:[address] Queta Salmeron MD) Asthma Diabetes Hiatal hernia History of hysteroscopy Hypertension Home Medications acetaminophen 500 - 1,000 mg PO Q6H PRN PRN 12/22/13 [History Last Taken Unknown] amlodipine 5 mg PO DAILY 12/22/13 [History Last Taken 10/22/17 07:30] enalapril maleate 20 mg PO BID 12/22/13 [History Last Taken 10/22/17 07:30] fluticasone propionate 2 spray NASAL DAILY PRN 12/22/13 [History Last Taken Unknown] lorazepam 0.5 mg PO DAILY PRN PRN 12/22/13 [History Last Taken Unknown] omeprazole 20 mg PO DAILY 12/22/13 [History Last Taken 10/22/17 07:30] cholecalciferol (vitamin D3) 2,000 unit PO DAILY 06/12/16 [History Last Taken Unknown] aspirin 81 mg PO MOWEFR 10/15/17 [History Last Taken Unknown] turmeric-turmeric root extract 1 ea PO BID 10/15/17 [History Last Taken Unknown] albuterol sulfate [ProAir HFA] 2 puff INHALATION TID PRN 05/30/21 [History Last Taken Unknown] azithromycin [Zithromax Z-Elmo] mg PO 09/16/20 [History Last Taken Unknown] budesonide-formoterol [Symbicort] 2 puff INHALATION BID 09/16/20 [History Last Taken Unknown] etodolac 400 mg PO DAILY 09/16/20 [History Last Taken Unknown] methylprednisolone [Medrol (Elmo)] 4 mg PO 09/16/20 [History Last Taken Unknown] Allergy/AdvReac Type Severity Reaction Status Date / Time adhesive tape AdvReac REDNESS TO Verified 09/16/20 08:14 SKIN Ugfhjtt-Gcv-Bur Reductase AdvReac Other Verified 09/16/20 08:14 Inhibitor Family History (Updated 09/16/20 @ 15:[address] Queta Salmeron MD) Father Hypertension Mother Raynauds disease Scleroderma Surgical History (Updated 09/16/20 @ 15:[address] Queta Salmeron MD) H/O total knee replacement H/O tubal ligation S/P appendectomy S/P cholecystectomy Social History (Updated 09/16/20 @ 15:[address] Queta Salmeron MD) adopted: No household members: none housing: house number of children: 2 current occupational status: employed current occupation: [employer] Smoking Status: Never smoker alcohol intake: never substance use type: does not use seatbelt use: always do you feel safe at home: Yes additional social history: ROS ROS ED Constitutional Constitutional ED: Reports chills and subjective; Denies fever(s) Eyes Eyes: Denies blurry vision or change in vision ENT ENT ED: Denies rhinorrhea or sore throat Cardiovascular Cardiovascular: Denies chest pain or palpitations Respiratory/Chest Respiratory/Chest: Reports cough; Denies dyspnea or sputum Gastrointestinal Gastrointestinal: Reports abdominal pain, nausea and vomiting; Denies diarrhea Genitourinary Genitourinary ED: Denies dysuria or hematuria Musculoskeletal Musculoskeletal: Denies back pain or neck pain Integumentary Denies abscess or rash Neurologic Neurologic: Denies headache(s) or weakness Allergic/Immunologic Allergic/Immunologic ED: Denies mouth swelling or urticaria EXAM Physical Exam Const Vital Signs: 09/16/20 08:14 09/16/20 08:19 09/16/20 09:19 Temperature 98.5 F 98.5 F 98.4 F Temperature Source Oral Oral Temporal Pulse Rate 61 61 69 Respiratory Rate 20 H 20 H 20 H Blood Pressure 151/74 H 151/74 H 134/70 H Blood Pressure Mean 99 99 91 Blood Pressure Source Blood Pressure Position Blood Pressure Location Pulse Ox 96 96 93 Oxygen Delivery Method Room Air Room Air Room Air Oxygen Flow Rate (L/min) 09/16/20 10:22 09/16/20 12:23 09/16/20 12:56 Temperature 99.1 F 100.1 F H Temperature Source Temporal Oral Pulse Rate 88 90 Respiratory Rate 22 H 18 Blood Pressure 127/58 H 133/64 H Blood Pressure Mean 81 87 Blood Pressure Source Blood Pressure Position Blood Pressure Location Pulse Ox 88 97 95 Oxygen Delivery Method Room Air Nasal Cannula Nasal Cannula Oxygen Flow Rate (L/min) 2 2 09/16/20 12:59 09/16/20 13:12 Temperature 100.1 F H 100.1 F H Temperature Source Oral Oral Pulse Rate 90 90 Respiratory Rate 20 H 20 H Blood Pressure 139/67 H 139/67 H Blood Pressure Mean 91 91 Blood Pressure Source Monitor Blood Pressure Position Semi-Fowlers Blood Pressure Location Right Arm Pulse Ox 95 95 Oxygen Delivery Method Nasal Cannula Nasal Cannula Oxygen Flow Rate (L/min) 2 2 Positive well nourished, well developed and obese General Appearance ED: well developed Nutritional Appearance: obese HEENT Reports moist mucous membranes normocephalic Neck supple and no JVD Resp normal respiratory effort and clear to auscultation bilaterally Cardio regular rate and regular rhythm GI non-distended Auscultation: normoactive bowel sounds Palpation: soft and tender RLQ and RUQ; Negative for guarding or rebound tenderness present Extremity General Extremety ED: Negative for edema or tenderness General Extremity: Negative for edema Neuro CN's II-XII intact bilaterally, moves all extremities and no sensory deficits noted Sensorium / Orientation: alert, oriented to person, oriented to place and oriented to time Psych mental status grossly normal MDM MDM MDM Narrative Medical decision making narrative: Patient was given IV fluids, morphine, and Zofran. CBC shows a leukocytosis of 19.1. Comprehensive metabolic profile was essentially within normal limits. Urinalysis does not show any evidence of urinary tract infection. CT scan of the abdomen pelvis was obtained. There is thickening of the appendix measuring up to 11 mm with mild stranding there is concerning for appendicitis. This was interpreted by the radiologist and reviewed by myself. Patient was given a dose of Zosyn. Case was discussed with Dr. Hanley. He requested an EKG and COVID-19 antigen be obtained. This was ordered. He was in to evaluate the patient. He will take the patient to the operating room for appendectomy. Patient and family understood and were agre eable with the plan. All questions were answered. Lab Data Labs: Laboratory Results - last 24 hr 09/16/20 09/16/20 09/16/20 08:32 08:32 08:32 WBC 19.1 H RBC 5.02 Hgb 14.9 Hct 46.1 MCV 91.8 MCH 29.7 MCHC 32.3 RDW Std Deviation 42.7 RDW Coeff of Nena 12.8 Plt Count 309 MPV 10.8 Immature Gran % (Auto) 1.100 H Neut % (Auto) 85.7 H Lymph % (Auto) 7.1 L [place] % (Auto) 6.0 Eos % (Auto) 0.0 Baso % (Auto) 0.1 Absolute Neuts (auto) 16.4 H Absolute Lymphs (auto) 1.36 Nucleated RBC % 0 Sodium 139 Potassium 4.0 Chloride 103 Carbon Dioxide 29.0 Anion Gap 7 BUN 26 H Creatinine 1.06 H Estim Creat Clear Calc 39.10 Est GFR (MDRD) Af Amer 65 Est GFR (MDRD) Non-Af 54 L BUN/Creatinine Ratio 24.5 H Glucose 145 H Hemoglobin A1c 6.0 H Calcium 9.6 Total Bilirubin 0.60 AST 15 ALT 22 Alkaline Phosphatase 84 Total Protein 7.9 Albumin 3.7 Globulin 4.2 Albumin/Globulin Ratio 0.9 Lipase 91 Urine Color Urine Clarity Urine pH Ur Specific [place] Urine Protein Urine Glucose (UA) Urine Ketones Urine Occult Blood Urine Nitrite Urine Bilirubin Urine Urobilinogen Ur Leukocyte Esterase Urine RBC Urine WBC Ur Squamous Epith Cells Urine Bacteria Urine Mucus POC Glucose 09/16/20 09/16/20 11:35 13:12 WBC RBC Hgb Hct MCV MCH MCHC RDW Std Deviation RDW Coeff of Nena Plt Count MPV Immature Gran % (Auto) Neut % (Auto) Lymph % (Auto) [place] % (Auto) Eos % (Auto) Baso % (Auto) Absolute Neuts (auto) Absolute Lymphs (auto) Nucleated RBC % Sodium Potassium Chloride Carbon Dioxide Anion Gap BUN Creatinine Estim Creat Clear Calc Est GFR (MDRD) Af Amer Est GFR (MDRD) Non-Af BUN/Creatinine Ratio Glucose Hemoglobin A1c Calcium Total Bilirubin AST ALT Alkaline Phosphatase Total Protein Albumin Globulin Albumin/Globulin Ratio Lipase Urine Color Yellow Urine Clarity Clear Urine pH 5.0 Ur Specific [place] 1.015 Urine Protein Negative Urine Glucose (UA) Normal Urine Ketones Negative Urine Occult Blood Negative Urine Nitrite Negative Urine Bilirubin 3 H Urine Urobilinogen Normal Ur Leukocyte Esterase Negative Urine RBC 0 SEEN Urine WBC 0 SEEN Ur Squamous Epith Cells 0 SEEN Urine Bacteria 0 SEEN Urine Mucus 1+ POC Glucose 135 H Radiography Diagnostic Testing: Radiology Impression Abdomen/Pelvis CT 09/16/20 09:08 IMPRESSION: 1. Status post cholecystectomy. 2. Thickening of the appendix measuring up to 11 mm with mild stranding concerning for acute appendicitis. Electronically Signed: Bob Mcfarland MD at 11:43 EDT Tel , Service support , Treatment and Re-Evaluation Vital Sign Attestation:: Vital signs were reviewed prior to admission. They are stable. Discharge Plan Dx/Rx/DC Orders Clinical Impression: Acute appendicitis Disposition Disposition: Acute Care Hospital [facility] Discharge Date/Time: 09/16/20 13:36
[2020-09-16 09:25] LABS: Absolute Lymphocyte Count 1.36 X10^3/uL (0.83-4.51); Absolute Neutrophil Count 16.4 X10^3/uL (2.0-7.7); Basophil# 0.02 X10^3/uL; Basophil% 0.1 % (0-1); Hematocrit 46.1 % (37-47); Hemoglobin 14.9 g/dL (12.0-15.0); Lymphocyte # 1.36 X10^3/ul (0.83-4.51); Lymphocyte % 7.1 % (19-41); Mean Corp Hgb Conc 32.3 g/dL (32-36); Mean Corpuscular Hgb 29.7 pg (27.0-32.0); Mean Corpuscular Volume 91.8 fL (81-99); Mean Platelet Vol. 10.8 fl (6.2-12.0); Monocyte# 1.14 X10^3/uL; NRBC Flagged by Analyzer 0 % (0-5); Neutrophil # 16.38 X10^3/uL (2.7-7.7); Neutrophil % 85.7 % (47-70); Platelet Count 309 K/mm3 (150-450); RBC Distribution Width CV 12.8 % (11.6-14.6); RBC Distribution Width SD 42.7 fl (35.1-43.9); Red Blood Count 5.02 M/mm3 (4.2-5.4); White Blood Count 19.1 K/mm3 (4.4-11.0)
[2020-09-16] MEDS: Morphine 4 MG/ML Syringe IV (09:26)
[2020-09-16] MEDS: Ondansetron 4 MG/2 ML Vial IV (09:26)
[2020-09-16] MEDS: 0.9% Normal Saline 1,000 ML 1000 ML IV (09:26)
[2020-09-16 09:33] LABS: ALB/GLOB Ratio 0.9 RATIO (0.9-2.4); AST(SGOT) 15 U/L (15-37); Alanine Aminotransfer ALT/SGPT 22 U/L (13-56); Albumin, Serum 3.7 g/dL (3.2-5.0); Alkaline Phosphatase 84 U/L (45-117); Anion Gap 7 (5-15); BUN 26 mg/dL (7-18); BUN/Creat Ratio 24.5 RATIO (10-20); Calcium,Total 9.6 mg/dL (8.5-10.1); Chloride 103 mmol/L (98-107); Creatinine, Serum 1.06 mg/dL (0.55-1.02); EST Glomerular Filtration Rate 54 mL/min (>60); Est Glom Filt Rate - Afr Amer 65 mL/min (>60); Globulin 4.2 g/dL (2.2-4.2); Glucose 145 mg/dL (74-106); Lipase 91 U/L (73-393); Protein, Total 7.9 g/dL (6.4-8.2); Sodium Level 139 mmol/L (136-145)
--- NOTE | 2020-09-16 10:23 | ED.RN ---
rn at the bedside. pt's pulse ox 88-89% on RA. 2L NC o2 placed on pt at this time. rn will continue to monitor. pt now 96%
[2020-09-16 11:40] LABS: Bacteria 0 SEEN /hpf (None Seen); Red Blood Cells-Urine 0 SEEN /hpf (0-5); Squamous Epithelial Cells - UA 0 SEEN /hpf (5-10); White Blood Cells 0 SEEN /hpf (0-5)
[2020-09-16 11:43] LABS: Color, Urine Yellow (Yellow); Glucose, Dipstick Normal (Normal); Ketone-Dipstick Negative (Negative); Leukocyte Esterase-Dipstick Negative /ul (Negative); Nitrite-Dipstick Negative (Negative); Occult Blood-Urine Negative /ul (Negative); Protein-Dipstick Negative (Negative); Specific Gravity, Urine 1.015 (1.002-1.030); Urine Clarity Clear (Clear); Urine Urobilinogen Normal (Normal)
[2020-09-16 11:45] LABS: Urine Bilirubin Dipstick 3 mg/dL (Negative)
[2020-09-16 11:55] LABS: Mucous, Urine 1+ /hpf (<or=2+)
--- NOTE | 2020-09-16 12:29 | EKG12_ITS ---
Test Reason : PRE-OP Blood Pressure : / mmHG Vent. Rate : 083 BPM Atrial Rate : 083 BPM P-R Int : 174 ms QRS Dur : 082 ms QT Int : 366 ms P-R-T Axes : 044 -20 065 degrees QTc Int : 430 ms Normal sinus rhythm Nonspecific ST abnormality Abnormal ECG Confirmed by JOSE MELENDEZ, DANIELLE ([id number]), scientific editor JORDAN GRIMALDO ([id number]) on 09/19/2020 12:44:19 PM Referred By: YAYO Confirmed By:ADNIELLE GARCIA MD
--- NOTE | 2020-09-16 13:11 | HP.PCM.SX_ITS ---
HPI - General HPI Narrative BRANDIN MAY, is a 75 F who presents with abdominal pain that started yesterday. Patient reports that the pain is in the right lower quadrant. She is not having any nausea but she is not eating or drinking anything either. She is passing flatus. [facility] Medical History Asthma Diabetes Hiatal hernia History of hysteroscopy Hypertension Home Medications acetaminophen 500 - 1,000 mg PO Q6H PRN PRN 12/22/13 [History Last Taken Unknown] amlodipine 5 mg PO DAILY 12/22/13 [History Last Taken 10/22/17 07:30] enalapril maleate 20 mg PO BID 12/22/13 [History Last Taken 10/22/17 07:30] fluticasone propionate 2 spray NASAL DAILY PRN 12/22/13 [History Last Taken Unknown] lorazepam 0.5 mg PO DAILY PRN PRN 12/22/13 [History Last Taken Unknown] omeprazole 20 mg PO DAILY 12/22/13 [History Last Taken 10/22/17 07:30] cholecalciferol (vitamin D3) 2,000 unit PO DAILY 06/12/16 [History Last Taken Unknown] aspirin 81 mg PO MOWEFR 10/15/17 [History Last Taken Unknown] turmeric-turmeric root extract 1 ea PO BID 10/15/17 [History Last Taken Unknown] albuterol sulfate [ProAir HFA] 2 puff INHALATION TID PRN 09/16/20 [History Last Taken Unknown] azithromycin [Zithromax Z-Elmo] mg PO 09/16/20 [History Last Taken Unknown] budesonide-formoterol [Symbicort] 2 puff INHALATION BID 09/16/20 [History Last Taken Unknown] etodolac 400 mg PO DAILY 09/16/20 [History Last Taken Unknown] methylprednisolone [Medrol (Elmo)] 4 mg PO 09/16/20 [History Last Taken Unknown] Allergy/AdvReac Type Severity Reaction Status Date / Time adhesive tape AdvReac REDNESS TO Verified 09/16/20 08:14 SKIN Jbndoax-Dgn-Uuf Reductase AdvReac Other Verified 09/16/20 08:14 Inhibitor Family History Father Hypertension Surgical History gallbladder removed H/O total knee replacement H/O tubal ligation Social History adopted: No housing: house number of children: 2 current occupational status: employed current occupation: [employer] Smoking Status: Never smoker alcohol intake: never substance use type: does not use seatbelt use: always do you feel safe at home: Yes additional social history: ROS Constitutional Constitutional: Reports anorexia and fever(s); Denies chills or fatigue Cardiovascular Cardiovascular: Denies chest pain Respiratory/Chest Respiratory/Chest: Denies cough Gastrointestinal Gastrointestinal: Reports abdominal pain and nausea; Denies diarrhea, dysphagia, rectal bleeding or vomiting Neurologic Neurologic: Denies abnormal gait Vital Signs Vital Signs Vital Signs: 09/16/20 08:14 09/16/20 08:19 09/16/20 09:19 Temperature 98.5 F 98.5 F 98.4 F Temperature Source Oral Oral Temporal Pulse Rate 61 61 69 Respiratory Rate 20 H 20 H 20 H Blood Pressure 151/74 H 151/74 H 134/70 H Blood Pressure Mean 99 99 91 Pulse Ox 96 96 93 Oxygen Delivery Method Room Air Room Air Room Air Oxygen Flow Rate (L/min) 09/16/20 10:22 09/16/20 12:23 09/16/20 12:56 Temperature 99.1 F 100.1 F H Temperature Source Temporal Oral Pulse Rate 88 90 Respiratory Rate 22 H 18 Blood Pressure 127/58 H 133/64 H Blood Pressure Mean 81 87 Pulse Ox 88 97 95 Oxygen Delivery Method Room Air Nasal Cannula Nasal Cannula Oxygen Flow Rate (L/min) 2 2 Weight Weight: 263 lb 10.766 oz Body Mass Index (BMI) 46.7 Physical Exam Const oriented x3 and no apparent distress Resp normal respiratory effort Cardio regular rate and regular rhythm GI soft to palpation Inspection: abdominal distention Palpation: tender RLQ Lab / Micro Data Result Diagrams: 09/16/20 08:32 09/16/20 08:32 Labs: Laboratory Results - last 24 hr 09/16/20 09/16/20 09/16/20 08:32 08:32 11:35 WBC 19.1 H RBC 5.02 Hgb 14.9 Hct 46.1 MCV 91.8 MCH 29.7 MCHC 32.3 RDW Std Deviation 42.7 RDW Coeff of Nena 12.8 Plt Count 309 MPV 10.8 Immature Gran % (Auto) 1.100 H Neut % (Auto) 85.7 H Lymph % (Auto) 7.1 L [place] % (Auto) 6.0 Eos % (Auto) 0.0 Baso % (Auto) 0.1 Absolute Neuts (auto) 16.4 H Absolute Lymphs (auto) 1.36 Nucleated RBC % 0 Sodium 139 Potassium 4.0 Chloride 103 Carbon Dioxide 29.0 Anion Gap 7 BUN 26 H Creatinine 1.06 H Estim Creat Clear Calc 39.10 Est GFR (MDRD) Af Amer 65 Est GFR (MDRD) Non-Af 54 L BUN/Creatinine Ratio 24.5 H Glucose 145 H Calcium 9.6 Total Bilirubin 0.60 AST 15 ALT 22 Alkaline Phosphatase 84 Total Protein 7.9 Albumin 3.7 Globulin 4.2 Albumin/Globulin Ratio 0.9 Lipase 91 Urine Color Yellow Urine Clarity Clear Urine pH 5.0 Ur Specific [place] 1.015 Urine Protein Negative Urine Glucose (UA) Normal Urine Ketones Negative Urine Occult Blood Negative Urine Nitrite Negative Urine Bilirubin 3 H Urine Urobilinogen Normal Ur Leukocyte Esterase Negative Urine RBC 0 SEEN Urine WBC 0 SEEN Ur Squamous Epith Cells 0 SEEN Urine Bacteria 0 SEEN Urine Mucus 1+ Radiology Impression Abdomen/Pelvis CT 09/16/20 09:08 IMPRESSION: 1. Status post cholecystectomy. 2. Thickening of the appendix measuring up to 11 mm with mild stranding concerning for acute appendicitis. Electronically Signed: Bob Mcfarland MD at 11:43 EDT Tel , Service support , Assessment & Plan Assessment/Plan (1) Acute appendicitis: QUALIFIERS: Acute appendicitis type: unspecified acute appendicitis type Qualified Code(s): K35.80 - Unspecified acute appendicitis PLAN: The patient is having right lower quadrant pain with an elevated white count and CT shows appendicitis. I discussed laparoscopic appendectomy with the patient in detail. I discussed the surgery including the risks of bleeding, infection, injury to surrounding organs such as the colon, small bowel, bladder or ureter. Patient understands the risks of surgery and she is willing to proceed with laparoscopic appendectomy. She will be admitted to the floor postoperatively. David Hanley MD Pager: [facility] [address] [place] [address], [address] [place] [address] Office:
[2020-09-16 13:21] LABS: Bedside Glucose 135 mg/dL (70-110)
--- NOTE | 2020-09-16 13:30 | APP_PTH ---
PATIENT: BRANDIN MAY LOC: MS3 U#:[id number] AGE/SX: 75/F ROOM: IA310 RE09/16/[address]: Dr. Zeynep Morales MD : 1945 BED: 1 DIS: 09/21/2020 SPEC #: [id number] RECD: 09/18/20 07:42 STATUS: ANMOL INFANTE #: [id number] MUNA: 09/16/20 13:[address]: David Hanley DEPT: SURGICAL PATHOLOGY RECD BY: Andree Vega ENTERED: 09/18/20 08:53 SP TYPE: APPENDIX OTHR DR: MD Dr. Queta Hamm MD Dr. Nana Yaa Koram, MD Mary Ciesa, [employer]ING [employer]MENT BLOCKER-C Tissues: Appendix, NOS Procedures: Surgery Specimen Level III Comments: @ Ordering doctor for SUIII edited from to @ everton BAILEY at 09/18/20 1236 @ Submitting doctor edited from to @ everton BAILEY at 09/18/20 1236 HEADER OPERATION: Laparoscopic appendectomy PRE-OP DIAGNOSIS: Acute appendicitis TISSUE SUBMITTED: Appendix MICROSCOPIC DIAGNOSIS Appendix, appendectomy: Acute appendicitis and periappendicitis. HOSEA:alyson 09/19/2020 MICROSCOPIC DESCRIPTION Slides are reviewed. GROSS DESCRIPTION Received in fixative is one container labeled with the patient's name and designated appendix. The specimen consists of an appendix measuring 4 cm in length and up to 1 cm in diameter. The attached periappendiceal adipose tissue measures up to 2.5 cm in width. The serosa is congested and hemorrhagic. No obvious perforation is identified. The mucosa is congested. The lumen does not contain fecalith. Cheerleading Coach sections are submitted in one cassette. / HOSEA:alyson 09/18/20 TC:2 CPT: 86440
[2020-09-16] MEDS: 0.9% Normal Saline 1,000 ML 125 ML IV ×2 (14:00→18:26)
--- NOTE | 2020-09-16 14:58 | PCM.OPRPT ---
Problems Associated Problem List Diagnoses (1) Acute appendicitis: (2) Purulent peritonitis: Report of Operation Date of Procedure: 09/16/20 Pre-Operative Diagnosis: Acute appendicitis Post-Operative Diagnosis: Acute appendicitis with peritonitis and purulence Surgery/Procedure Performed:: Laparoscopic appendectomy Specimen's removed: Appendix Drains: VAZQUEZ to bulb suction Description of Procedure: Patient was brought back to the operating room and general anesthesia was induced. The abdomen was prepped and draped in usual sterile fashion. An incision was made superior to the umbilicus and a 5 mm port with the camera within it was placed into the abdomen using Visiport technique. The abdomen was then insufflated to 15 mmHg. The camera was used to inspect the abdomen for injuries and there were none. Under direct visualization a 5 mm port was placed in the left lateral lower quadrant. The periumbilical port was then upsized to a 12 mm port and a 5 mm port was placed in the suprapubic space. The patient had peritonitis with inflammation and purulence throughout the lower abdomen. This was suctioned and irrigated. The appendix was identified and the mesoappendix was taken down with harmonic scalpel. Once the base of the appendix was identified it was stapled across using a 45 stapler. The staple line was inspected and appeared to be intact with no perforation at the base. The rest of the abdomen was irrigated copiously and suctioned dry. A 15 Upper Sor[place] round drain was placed through the left lower quadrant port and placed into the pelvis with the proximal end of the drain coming across the staple line. The drain was sutured in place using 3-0 nylon suture. Next using a Ari Stanford needle the fascia of the midline incision was closed with an 0 Vicryl suture laparoscopically. The air was then allowed to desufflate from the abdomen and the drain was connected to bulb suction. The incisions were injected with local anesthetic and closed with interrupted 4-0 Monocryl sutures. Steri-Strips and bandages were applied. Patient was taken to PACU in stable condition. Admit VTE Documentation VTE Mechan Device Prophylaxis: SCD's
--- NOTE | 2020-09-16 15:12 | CON.PCM.HO_ITS ---
Assessment & Plan Assessment/Plan (1) Purulent peritonitis: (2) Acute appendicitis: QUALIFIERS: Acute appendicitis type: unspecified acute appendicitis type Qualified Code(s): K35.80 - Unspecified acute appendicitis (3) Sepsis: QUALIFIERS: Sepsis type: sepsis due to unspecified organism Sepsis acute organ dysfunction status: unspecified Qualified Code(s): A41.9 - Sepsis, unspecified organism PLAN: The patient is a 75 y/o F w/ PMHx: GERD, CKD stage III, Morbid obesity, Diabetes mellitus type II diet controlled x ~ 5-6 years, HTN, HLD, Asthma, recent evaluation for onset mildly productive cough (green-white sputum) with mild dyspnea starting the Thursday prior with evaluation on Thursday per her RISK AND INSURANCE CONSULTANT at PCP office with initiation medrol dose pack as well as zpack now presenting to the [facility] ED on 09/16/20 with onset right lower quadrant abdominal pain that is been intermittently occurring over the last nearly 1 week with poor appetite which she initially contributed to her recent diagnosis of pneumonia with ongoing flatus and no specific nausea or emesis but generalized malaise and fatigue. 1. Acute Sepsis secondary to Acute appendicitis with peritonitis and purulence: Patient admitted to [place] per General surgery, s/p 09/16/20 OR w/ lap appendectomy w/ VAZQUEZ drain, per discussions with Surgery high likelihood ileus thus will remain sip/chip only, initiate q 6 hour accu check with ISS, holding medrol dose pack as noted #2, continued on IV zosyn, monitor I&Os, maintain on PPI, continue IVFs, no LA obtained in the ED but VS improving upon evaluation in PACU. 2. Recent Questionable PNA w/ asthma exacerbation: Review of prior records with 09/14/2020 chest x-ray with left lower lobe airspace opacity possibly atelectasis and/or pneumonia noting right lung clear with evidence of COPD changes. As not ed CT scan with evidence of atelectasis or scarring in the lower lungs therefore unclear of true pneumonia. Will hold z-pack, currently on IV zosyn for acute presentation #1, hold medrol dose pack given acute severe infection #1 and no obvious current wheezing w/ transition from home inhalers to ATC duoneb therapy and PRN albuterol, may re-add steroids if any concerns. 3. Diabetes mellitus type II, diet controlled: Not on regimen, hemoglobin A1c requested and she notes last was 5.7%, sips and chips only currently, remain on every 6 hours accu checks w/ ISS. 4. Hypertension: Continue home regimen including enalapril, Norvasc with hold parameters, PRN hydralazine. 5. Hyperlipidemia: Not on regimen, defer to outpatient. 6. Morbid Obesity: Weight loss and lifestyle changes encouraged. 7. Chronic Kidney Disease Stage III, unclear subtype: Admission BUN/Cr 26/1.06, baseline renal function 0.9-1.1, repeat BMP in AM. 8. Anxiety and Depression: Will continue home low dose PRN ativan, would benefit from consideration SSRI/SNRI for treatment. 9. GERD: Maintained on PPI. 10. DVT prophylaxis: SCDs, chemoprophylaxis per general surgery discretion. HPI Consult Data Date of Consult: 09/16/20 HPI Narrative HPI Narrative: The patient is a 75 y/o F w/ PMHx: GERD, CKD stage III, Morbid obesity, Diabetes mellitus type II diet controlled x ~ 5-6 years, HTN, HLD, Asthma, recent evaluation for onset mildly productive cough (green-white sputum) with mild dyspnea starting the Thursday prior with evaluation on Thursday per her RISK AND INSURANCE CONSULTANT at PCP office with initiation medrol dose pack as well as aldo now presenting to the [facility] ED on 09/16/20 with onset right lower quadrant abdominal pain that is been intermittently occurring over the last nearly 1 week with poor appetite which she initially contributed to her recent diagnosis of pneumonia wi th ongoing flatus and no specific nausea or emesis but generalized malaise and fatigue. She denies any associated fevers or chills. Her pain was initially mild and as noted intermittent, intermittent stabbing/cramping rated 2-3 but would resolve however it has since significantly worsened and over the last 24 hours progressed to 10 out of 10, worse with any movement and not only in the right lower quadrant but anywhere in the bilateral lower quadrant and especially any palpation prompting eventual ED presentation. Work-up in the ED included T- max 100.1, heart rate max 96, BP 127/58, respiratory rate 22, initially noted to be 88% on room air however improved to 92 to 97% on 2 to 4 L nasal cannula and unclear if hypoxia initially was following IV pain regimen, CBC with WBCs 19.1, hemoglobin 14.9, platelet 309 with significant left shift, CMP with BUN/creatinine 26/1.06, glucose 145, unremarkable hepatic profile, lipase 91, urinalysis not marked appearing, CT abdomen and pelvis with evidence status post cholecystectomy, thickening the appendix measuring up to 11 mm with mild stranding concerning for acute appendicitis. Of note on CT scan lower thorax noting only mild atelectasis or scarring in the lower lungs with no obvious evidence of pneumonia. Review of prior records with 09/14/2020 chest x-ray with left lower lobe airspace opacity possibly atelectasis and/or pneumonia noting right lung clear with evidence of COPD changes. As noted CT scan with evidence of atelectasis or scarring in the lower lungs therefore unclear of true pneumonia. General surgery requested postop hospitalist medical consultation as in the PACU patient did have initially mild hypoxia but improved with oxygen and over time with additional history of underlying diabetes. [facility] Medical History (Updated 09/16/20 @ 15:[address] Queta Salmeron MD) Asthma Diabetes Hiatal hernia History of hysteroscopy Hypertension Home Medications acetaminophen 500 - 1,000 mg PO Q6H PRN PRN 12/22/13 [History Last Taken Unknown] amlodipine 5 mg PO DAILY 12/22/13 [History Last Taken 10/22/17 07:30] enalapril maleate 20 mg PO BID 12/22/13 [History Last Taken 10/22/17 07:30] fluticasone propionate 2 spray NASAL DAILY PRN 12/22/13 [History Last Taken Unknown] lorazepam 0.5 mg PO DAILY PRN PRN 12/22/13 [History Last Taken Unknown] omeprazole 20 mg PO DAILY 12/22/13 [History Last Taken 10/22/17 07:30] cholecalciferol (vitamin D3) 2,000 unit PO DAILY 06/12/16 [History Last Taken Unknown] aspirin 81 mg PO MOWEFR 10/15/17 [History Last Taken Unknown] turmeric-turmeric root extract 1 ea PO BID 10/15/17 [History Last Taken Unknown] albuterol sulfate [ProAir HFA] 2 puff INHALATION TID PRN 09/16/20 [History Last Taken Unknown] azithromycin [Zithromax Z-Elmo] mg PO 09/16/20 [History Last Taken Unknown] budesonide-formoterol [Symbicort] 2 puff INHALATION BID 09/16/20 [History Last Taken Unknown] etodolac 400 mg PO DAILY 09/16/20 [History Last Taken Unknown] methylprednisolone [Medrol (Elmo)] 4 mg PO 09/16/20 [History Last Taken Unknown] Allergy/AdvReac Type Severity Reaction Status Date / Time adhesive tape AdvReac REDNESS TO Verified 09/16/20 08:14 SKIN [id number]-[id number]-Jwu Reductase AdvReac Other Verified 09/16/20 08:14 Inhibitor Family History (Updated 09/16/20 @ 15:[address] Queta Salmeron MD) Father Hypertension Mother Raynauds disease Scleroderma Surgical History (Updated 09/16/20 @ 15:[address] Queta Salmeron MD) H/O total knee replacement H/O tubal ligation S/P appendectomy S/P cholecystectomy Social History (Updated 09/16/20 @ 15:[address] Queta Salmeron MD) adopted: No household members: none housing: house number of children: 2 current occupational status: employed current occupation: [employer] Smoking Status: Never smoker alcohol intake: never substance use type: does not use seatbelt use: always do you feel safe at home: Yes additional social history: ROS ROS Narrative Admission Review of Systems: CONSTITUTIONAL: No weight loss, fever, chills, + weakness or fatigue. HEENT: Eyes: No visual loss, blurred vision, double vision or yellow sclerae. Ears, Nose, Throat: No hearing loss, sneezing, congestion, runny nose or sore throat. SKIN: No rash or itching, lesions, wounds. CARDIOVASCULAR: No chest pain, chest pressure or chest discomfort, palpitations, edema, orthopnea, syncopal events. RESPIRATORY: + shortness of breath, cough wth sputum, wheezing, No hemoptysis. GASTROINTESTINAL: + anorexia, abdominal pain, No nausea, vomiting or diarrhea, melena, BRBPR. GENITOURINARY: No dysuria, frequency, urgency or retention. NEUROLOGICAL: No headache, dizziness, syncope, paralysis, ataxia, numbness or tingling in the extremities, focal weakness, change in bowel or bladder control, seizure. MUSCULOSKELETAL: No muscle, back pain, joint pain or stiffness. HEMATOLOGIC: No anemia, bleeding or bruising. LYMPHATICS: No enlarged nodes. No history of splenectomy. PSYCHIATRIC: + history of depression or anxiety. ENDOCRINOLOGIC: No reports of sweating, cold or heat intolerance. No polyuria or polydipsia. ALLERGIES: + history of asthma, hives, eczema or rhinitis. Physical Exam Narrative Physical Examination: General: awake, alert, oriented x 3 and cooperative, seated upright in the PACU bed, fatigued appearance, notes abdominal pain improved s/p OR, still onset with palpation. Skin: normal color, turgor, no icterus, cyanosis except recent OR w/ incisions w/ mild serosanguinous drainage, VAZQUEZ in place with similar. HEENT: AT/NC, EOMI, PERRLA, dry MM, no carotid bruits or JVD noted however thickened neck makes examination difficult. Lungs: Diminished, > bases, moderate effort, despite recent PNA diagnosis no obvious rales, ronchi and no current wheezing. Heart: regular rate and rhythm; no gallop, rub audible. Abdomen: soft, morbidly obese, expected TTP diffusely, > BL LQ, some distention noted, hypoactive BS, difficult to assess HSM given habitus and pain with recent OR as noted. Extremities: no cyanosis, clubbing, or edema. Neurological: patient awake, alert, oriented as noted, cognitive function intact; pupils equally reactive to light and accommodation, cranial nerves II- XII grossly normal, moving all 4 extremities, no focal deficits, strength severely globally decreased given recent OR, acute presentation. Psychiatric: affect appears fatigued, no acute evidence of depressive or anxiety feelings. Lab / Micro Data Result Diagrams: 09/16/20 08:32 09/16/20 08:32 Labs: Laboratory Results - last 24 hr 09/16/20 09/16/20 09/16/20 08:32 08:32 11:35 WBC 19.1 H RBC 5.02 Hgb 14.9 Hct 46.1 MCV 91.8 MCH 29.7 MCHC 32.3 RDW Std Deviation 42.7 RDW Coeff of Nena 12.8 Plt Count 309 MPV 10.8 Immature Gran % (Auto) 1.100 H Neut % (Auto) 85.7 H Lymph % (Auto) 7.1 L [place] % (Auto) 6.0 Eos % (Auto) 0.0 Baso % (Auto) 0.1 Absolute Neuts (auto) 16.4 H Absolute Lymphs (auto) 1.36 Nucleated RBC % 0 Sodium 139 Potassium 4.0 Chloride 103 Carbon Dioxide 29.0 Anion Gap 7 BUN 26 H Creatinine 1.06 H Estim Creat Clear Calc 39.10 Est GFR (MDRD) Af Amer 65 Est GFR (MDRD) Non-Af 54 L BUN/Creatinine Ratio 24.5 H Glucose 145 H Calcium 9.6 Total Bilirubin 0.60 AST 15 ALT 22 Alkaline Phosphatase 84 Total Protein 7.9 Albumin 3.7 Globulin 4.2 Albumin/Globulin Ratio 0.9 Lipase 91 Urine Color Yellow Urine Clarity Clear Urine pH 5.0 Ur Specific [place] 1.015 Urine Protein Negative Urine Glucose (UA) Normal Urine Ketones Negative Urine Occult Blood Negative Urine Nitrite Negative Urine Bilirubin 3 H Urine Urobilinogen Normal Ur Leukocyte Esterase Negative Urine RBC 0 SEEN Urine WBC 0 SEEN Ur Squamous Epith Cells 0 SEEN Urine Bacteria 0 SEEN Urine Mucus 1+ POC Glucose 09/16/20 13:12 WBC RBC Hgb Hct MCV MCH MCHC RDW Std Deviation RDW Coeff of Nena Plt Count MPV Immature Gran % (Auto) Neut % (Auto) Lymph % (Auto) [place] % (Auto) Eos % (Auto) Baso % (Auto) Absolute Neuts (auto) Absolute Lymphs (auto) Nucleated RBC % Sodium Potassium Chloride Carbon Dioxide Anion Gap BUN Creatinine Estim Creat Clear Calc Est GFR (MDRD) Af Amer Est GFR (MDRD) Non-Af BUN/Creatinine Ratio Glucose Calcium Total Bilirubin AST ALT Alkaline Phosphatase Total Protein Albumin Globulin Albumin/Globulin Ratio Lipase Urine Color Urine Clarity Urine pH Ur Specific [place] Urine Protein Urine Glucose (UA) Urine Ketones Urine Occult Blood Urine Nitrite Urine Bilirubin Urine Urobilinogen Ur Leukocyte Esterase Urine RBC Urine WBC Ur Squamous Epith Cells Urine Bacteria Urine Mucus POC Glucose 135 H Micro: Microbiology 09/16/20 12:44 SARS-CoV-2 Antigen (Rapid) - Final Mucosa - Nose Radiology Impression Abdomen/Pelvis CT 09/16/20 09:08 IMPRESSION: 1. Status post cholecystectomy. 2. Thickening of the appendix measuring up to 11 mm with mild stranding concerning for acute appendicitis. Electronically Signed: Bob Mcfarland MD at 11:43 EDT Tel , Service support , Charges/Coding Visit Charges Office Visits / Consults: [id number] IP Consult L4
[2020-09-16 15:21] LABS: Bedside Glucose 153 mg/dL (70-110)
[2020-09-16] MEDS: Ipratropium/Albuterol Sulfate 3 ML AMPUL.NEB INHALATION ×2 (15:34→18:54)
[2020-09-16 17:31] LABS: Bedside Glucose 188 mg/dL (70-110)
[2020-09-16] MEDS: Insulin Lispro 100 UNIT/ML INSULN.PEN SC (18:23)
[2020-09-16] MEDS: amLODIPine 5 MG Tablet PO (18:26)
[2020-09-16] MEDS: 0.9% Saline Lock 10 ML Syringe IV (18:29)
[2020-09-16] MEDS: Morphine 2 MG/ML Syringe IV (18:29)
[2020-09-16] MEDS: Lisinopril 20 MG Tablet PO (21:21)
[2020-09-16] MEDS: Pantoprazole Sodium 20 MG Tablet PO (21:21)
[2020-09-17] VITALS (11 sets, daily range): BP systolic 122–154; BP diastolic 50–80; PULSE 73–95; RESP 16–18; TEMP 36.7–37.8; O2SAT 94–97
[2020-09-17] MEDS: Morphine 2 MG/ML Syringe IV ×3 (00:37→07:09)
[2020-09-17] MEDS: Insulin Lispro 100 UNIT/ML INSULN.PEN SC (00:43)
[2020-09-17 00:51] LABS: Bedside Glucose 162 mg/dL (70-110)
[2020-09-17] MEDS: 0.9% Normal Saline 1,000 ML 125 ML IV ×3 (02:45→19:56)
[2020-09-17] MEDS: 0.9% Saline Lock 10 ML Syringe IV (06:20)
[2020-09-17 06:23] LABS: Absolute Lymphocyte Count 1.24 X10^3/uL (0.83-4.51); Absolute Neutrophil Count 10.8 X10^3/uL (2.0-7.7); Basophil# 0.02 X10^3/uL; Basophil% 0.2 % (0-1); Eosinophil# 0.01 X10^3/uL; Eosinophils% 0.1 % (0-5); Hematocrit 40.7 % (37-47); Hemoglobin 12.9 g/dL (12.0-15.0); Lymphocyte # 1.24 X10^3/ul (0.83-4.51); Lymphocyte % 9.5 % (19-41); Mean Corp Hgb Conc 31.7 g/dL (32-36); Mean Corpuscular Hgb 29.9 pg (27.0-32.0); Mean Corpuscular Volume 94.2 fL (81-99); Mean Platelet Vol. 10.9 fl (6.2-12.0); Monocyte# 0.95 X10^3/uL; Monocyte% 7.3 % (0-10); NRBC Flagged by Analyzer 0 % (0-5); Neutrophil # 10.77 X10^3/uL (2.7-7.7); Neutrophil % 82.7 % (47-70); Platelet Count 212 K/mm3 (150-450); RBC Distribution Width CV 13.2 % (11.6-14.6); RBC Distribution Width SD 45.9 fl (35.1-43.9); Red Blood Count 4.32 M/mm3 (4.2-5.4)
[2020-09-17 06:30] LABS: Bedside Glucose 126 mg/dL (70-110)
[2020-09-17 06:47] LABS: Anion Gap 6 (5-15); BUN 19 mg/dL (7-18); BUN/Creat Ratio 18.6 RATIO (10-20); Calcium,Total 8.4 mg/dL (8.5-10.1); Chloride 109 mmol/L (98-107); Creatinine, Serum 1.02 mg/dL (0.55-1.02); EST Glomerular Filtration Rate 56 mL/min (>60); Est Glom Filt Rate - Afr Amer 68 mL/min (>60); Estimated Creatinine Clearance 40.63 ml/min; Glucose 126 mg/dL (74-106); Potassium 3.8 mmol/L (3.5-5.1); Sodium Level 143 mmol/L (136-145)
[2020-09-17] MEDS: Ipratropium/Albuterol Sulfate 3 ML AMPUL.NEB INHALATION ×3 (06:57→17:28)
--- NOTE | 2020-09-17 07:26 | PCM.PN.SRG ---
Subjective Subjective Patient has not had any flatus. No nausea or vomiting. She is having lower pelvic pain especially when the drain is stripped Objective Data Objective Data Vital Signs: Vital Signs Temp Pulse Resp BP Pulse Ox 99.0 F 79 16 154/80 H 97 09/17/20 04:18 09/17/20 06:56 09/17/20 06:56 09/17/20 04:18 09/17/20 06:58 Oxygen Flow Rate (L/min) 2 Oxygen Delivery Method Nasal Cannula Weight: 263 lb 9 oz Body Mass Index (BMI) 46.7 Intake & Output: Intake and Output for Last 24 Hours 09/15/20 09/16/20 09/17/20 23:59 23:59 23:59 Intake Total 1679.17 / 1679.17 1050 / 1050 Output Total 255 / 255 500 / 500 Balance 1424.17 / 1424.17 550 / 550 Lab / Micro Data Result Diagrams: 09/17/20 05:24 09/17/20 05:24 Labs: Laboratory Results - last 24 hr 09/16/20 09/16/20 09/16/20 08:32 08:32 08:32 WBC 19.1 H RBC 5.02 Hgb 14.9 Hct 46.1 MCV 91.8 MCH 29.7 MCHC 32.3 RDW Std Deviation 42.7 RDW Coeff of Nena 12.8 Plt Count 309 MPV 10.8 Immature Gran % (Auto) 1.100 H Neut % (Auto) 85.7 H Lymph % (Auto) 7.1 L [place] % (Auto) 6.0 Eos % (Auto) 0.0 Baso % (Auto) 0.1 Absolute Neuts (auto) 16.4 H Absolute Lymphs (auto) 1.36 Nucleated RBC % 0 Sodium 139 Potassium 4.0 Chloride 103 Carbon Dioxide 29.0 Anion Gap 7 BUN 26 H Creatinine 1.06 H Estim Creat Clear Calc 39.10 Est GFR (MDRD) Af Amer 65 Est GFR (MDRD) Non-Af 54 L BUN/Creatinine Ratio 24.5 H Glucose 145 H Hemoglobin A1c 6.0 H Calcium 9.6 Total Bilirubin 0.60 AST 15 ALT 22 Alkaline Phosphatase 84 Total Protein 7.9 Albumin 3.7 Globulin 4.2 Albumin/Globulin Ratio 0.9 Lipase 91 Urine Color Urine Clarity Urine pH Ur Specific [place] Urine Protein Urine Glucose (UA) Urine Ketones Urine Occult Blood Urine Nitrite Urine Bilirubin Urine Urobilinogen Ur Leukocyte Esterase Urine RBC Urine WBC Ur Squamous Epith Cells Urine Bacteria Urine Mucus POC Glucose 09/16/20 09/16/20 09/16/20 11:35 13:12 15:18 WBC RBC Hgb Hct MCV MCH MCHC RDW Std Deviation RDW Coeff of Nena Plt Count MPV Immature Gran % (Auto) Neut % (Auto) Lymph % (Auto) [place] % (Auto) Eos % (Auto) Baso % (Auto) Absolute Neuts (auto) Absolute Lymphs (auto) Nucleated RBC % Sodium Potassium Chloride Carbon Dioxide Anion Gap BUN Creatinine Estim Creat Clear Calc Est GFR (MDRD) Af Amer Est GFR (MDRD) Non-Af BUN/Creatinine Ratio Glucose Hemoglobin A1c Calcium Total Bilirubin AST ALT Alkaline Phosphatase Total Protein Albumin Globulin Albumin/Globulin Ratio Lipase Urine Color Yellow Urine Clarity Clear Urine pH 5.0 Ur Specific [place] 1.015 Urine Protein Negative Urine Glucose (UA) Normal Urine Ketones Negative Urine Occult Blood Negative Urine Nitrite Negative Urine Bilirubin 3 H Urine Urobilinogen Normal Ur Leukocyte Esterase Negative Urine RBC 0 SEEN Urine WBC 0 SEEN Ur Squamous Epith Cells 0 SEEN Urine Bacteria 0 SEEN Urine Mucus 1+ POC Glucose 135 H 153 H 09/16/20 09/17/20 09/17/20 17:09 00:42 05:24 WBC 13.0 H RBC 4.32 Hgb 12.9 Hct 40.7 MCV 94.2 MCH 29.9 MCHC 31.7 L RDW Std Deviation 45.9 H RDW Coeff of Nena 13.2 Plt Count 212 MPV 10.9 Immature Gran % (Auto) 0.200 Neut % (Auto) 82.7 H Lymph % (Auto) 9.5 L [place] % (Auto) 7.3 Eos % (Auto) 0.1 Baso % (Auto) 0.2 Absolute Neuts (auto) 10.8 H Absolute Lymphs (auto) 1.24 Nucleated RBC % 0 Sodium Potassium Chloride Carbon Dioxide Anion Gap BUN Creatinine Estim Creat Clear Calc Est GFR (MDRD) Af Amer Est GFR (MDRD) Non-Af BUN/Creatinine Ratio Glucose Hemoglobin A1c Calcium Total Bilirubin AST ALT Alkaline Phosphatase Total Protein Albumin Globulin Albumin/Globulin Ratio Lipase Urine Color Urine Clarity Urine pH Ur Specific [place] Urine Protein Urine Glucose (UA) Urine Ketones Urine Occult Blood Urine Nitrite Urine Bilirubin Urine Urobilinogen Ur Leukocyte Esterase Urine RBC Urine WBC Ur Squamous Epith Cells Urine Bacteria Urine Mucus POC Glucose 188 H 162 H 09/17/20 09/17/20 05:24 06:18 WBC RBC Hgb Hct MCV MCH MCHC RDW Std Deviation RDW Coeff of Nena Plt Count MPV Immature Gran % (Auto) Neut % (Auto) Lymph % (Auto) [place] % (Auto) Eos % (Auto) Baso % (Auto) Absolute Neuts (auto) Absolute Lymphs (auto) Nucleated RBC % Sodium 143 Potassium 3.8 Chloride 109 H Carbon Dioxide 28.0 Anion Gap 6 BUN 19 H Creatinine 1.02 Estim Creat Clear Calc 40.63 Est GFR (MDRD) Af Amer 68 Est GFR (MDRD) Non-Af 56 L BUN/Creatinine Ratio 18.6 Glucose 126 H Hemoglobin A1c Calcium 8.4 L Total Bilirubin AST ALT Alkaline Phosphatase Total Protein Albumin Globulin Albumin/Globulin Ratio Lipase Urine Color Urine Clarity Urine pH Ur Specific [place] Urine Protein Urine Glucose (UA) Urine Ketones Urine Occult Blood Urine Nitrite Urine Bilirubin Urine Urobilinogen Ur Leukocyte Esterase Urine RBC Urine WBC Ur Squamous Epith Cells Urine Bacteria Urine Mucus POC Glucose 126 H Micro: Microbiology 09/17/20 00:35 Urine, Random Legionella Antigen - Final 09/17/20 00:35 Urine, Random Streptococcus pneumoniae Antigen (M - Final 09/16/20 17:35 Mucosa - Nasopharyngeal Respiratory Panel (PCR) - Final 09/16/20 12:44 Mucosa - Nose SARS-CoV-2 Antigen (Rapid) - Final Radiography Diagnostic Testing: Radiology Impression Abdomen/Pelvis CT 09/16/20 09:08 IMPRESSION: 1. Status post cholecystectomy. 2. Thickening of the appendix measuring up to 11 mm with mild stranding concerning for acute appendicitis. Electronically Signed: Bob Mcfarland MD at 11:43 EDT Tel , Service support , Physical Exam Const oriented x3 and no apparent distress Cardio regular rate and regular rhythm GI soft to palpation Inspection: abdominal distention Palpation: tender RLQ and suprapubic Assessment & Plan Assessment/Plan (1) Purulent peritonitis: (2) Acute appendicitis: QUALIFIERS: Acute appendicitis type: unspecified acute appendicitis type Qualified Code(s): K35.80 - Unspecified acute appendicitis PLAN: The patient had appendicitis with peritonitis. She has a drain in place which is serosanguineous. I plan to continue sips and chips until she is passing significant flatus and then I will resume a diet. The patient is at high risk for ileus. The drain appears serosanguineous I will continue to leave it in place until she is tolerating a diet. Her white count is decreasing. Continue antibiotics. Hospitalist has been consulted to manage her diabetes and her walking pneumonia which was treated with steroids. David Hanley MD Pager: [facility] [address] [place] [address], [address] [place] [address] Office:
[2020-09-17] MEDS: Pantoprazole Sodium 20 MG Tablet PO ×2 (09:47→21:29)
[2020-09-17] MEDS: amLODIPine 5 MG Tablet PO (09:47)
[2020-09-17] MEDS: Aspirin E.C. 81 MG Tablet PO (09:47)
[2020-09-17] MEDS: Enoxaparin 40 MG/0.4 ML Syringe SC (09:47)
[2020-09-17] MEDS: Lisinopril 20 MG Tablet PO ×2 (09:48→21:29)
[2020-09-17] MEDS: Nystatin Powder 15gm Bottle 1 APPLIC TOPICAL ×2 (10:14→21:29)
[2020-09-17 12:05] LABS: Bedside Glucose 122 mg/dL (70-110)
--- NOTE | 2020-09-17 13:35 | PN.HOSP_ITS ---
Subjective Subjective Patient seen and examined. She feels well and has no complaints today. She is postop day 1 for laparoscopic appendectomy. She has remained hemodynamically stable. Pain is well controlled. Review of systems otherwise negative. Objective Data Objective Data Vital Signs: Vital Signs Temp Pulse Resp BP Pulse Ox 98.2 F 84 18 133/50 H 96 09/17/20 07:52 09/17/20 07:52 09/17/20 07:55 09/17/20 07:52 09/17/20 07:52 Oxygen Flow Rate (L/min) 2 Oxygen Delivery Method Nasal Cannula Weight: 263 lb 9 oz Body Mass Index (BMI) 46.7 Intake & Output: Intake and Output for Last 24 Hours 09/15/20 09/16/20 09/17/20 23:59 23:59 23:59 Intake Total 1679.17 / 1679.17 2250 / 2250 Output Total 255 / 255 890 / 890 Balance 1424.17 / 1424.17 1360 / 1360 Lab / Micro Data Result Diagrams: 09/17/20 05:24 09/17/20 05:24 Labs: Laboratory Results - last 24 hr 09/16/20 09/16/20 09/16/20 08:32 15:18 17:09 WBC RBC Hgb Hct MCV MCH MCHC RDW Std Deviation RDW Coeff of Nena Plt Count MPV Immature Gran % (Auto) Neut % (Auto) Lymph % (Auto) [place] % (Auto) Eos % (Auto) Baso % (Auto) Absolute Neuts (auto) Absolute Lymphs (auto) Nucleated RBC % Sodium Potassium Chloride Carbon Dioxide Anion Gap BUN Creatinine Estim Creat Clear Calc Est GFR (MDRD) Af Amer Est GFR (MDRD) Non-Af BUN/Creatinine Ratio Glucose Hemoglobin A1c 6.0 H Calcium POC Glucose 153 H 188 H 09/17/20 09/17/20 09/17/20 00:42 05:24 05:24 WBC 13.0 H RBC 4.32 Hgb 12.9 Hct 40.7 MCV 94.2 MCH 29.9 MCHC 31.7 L RDW Std Deviation 45.9 H RDW Coeff of Nena 13.2 Plt Count 212 MPV 10.9 Immature Gran % (Auto) 0.200 Neut % (Auto) 82.7 H Lymph % (Auto) 9.5 L [place] % (Auto) 7.3 Eos % (Auto) 0.1 Baso % (Auto) 0.2 Absolute Neuts (auto) 10.8 H Absolute Lymphs (auto) 1.24 Nucleated RBC % 0 Sodium 143 Potassium 3.8 Chloride 109 H Carbon Dioxide 28.0 Anion Gap 6 BUN 19 H Creatinine 1.02 Estim Creat Clear Calc 40.63 Est GFR (MDRD) Af Amer 68 Est GFR (MDRD) Non-Af 56 L BUN/Creatinine Ratio 18.6 Glucose 126 H Hemoglobin A1c Calcium 8.4 L POC Glucose 162 H 09/17/20 09/17/20 06:18 11:59 WBC RBC Hgb Hct MCV MCH MCHC RDW Std Deviation RDW Coeff of Nena Plt Count MPV Immature Gran % (Auto) Neut % (Auto) Lymph % (Auto) [place] % (Auto) Eos % (Auto) Baso % (Auto) Absolute Neuts (auto) Absolute Lymphs (auto) Nucleated RBC % Sodium Potassium Chloride Carbon Dioxide Anion Gap BUN Creatinine Estim Creat Clear Calc Est GFR (MDRD) Af Amer Est GFR (MDRD) Non-Af BUN/Creatinine Ratio Glucose Hemoglobin A1c Calcium POC Glucose 126 H 122 H Micro: Microbiology 09/17/20 00:35 Urine, Random Legionella Antigen - Final 09/17/20 00:35 Urine, Random Streptococcus pneumoniae Antigen (M - Final 09/16/20 17:35 Mucosa - Nasopharyngeal Respiratory Panel (PCR) - Final 09/16/20 12:44 Mucosa - Nose SARS-CoV-2 Antigen (Rapid) - Final Physical Exam Const alert, oriented x3 and no apparent distress Exam Limitations: no limitations Nutritional Appearance: morbidly obese HEENT head/scalp atraumatic, moist oral mucous membranes and oropharynx normal Head and Scalp: normocephalic Eyes PERRL, EOMs intact bilaterally and conjunctivae normal Neck no lymphadenopathy, supple and no JVD Resp normal respiratory effort, no retractions, no use of accessory muscles and clear to auscultation bilaterally Cardio regular rate, regular rhythm, S1 normal heart sound, S2 normal heart sound and no murmurs GI normal to inspection, nondistended, normoactive bowel sounds, soft to palpation, non-tender and non-distended GI Narrative: obese abdomen, intact dressing over surgical site Extremity normal to inspection Peripheral Pulses: Yes pulses 2+ throughout Skin no rashes or lesions noted Neuro oriented x3 and moves all extremities Sensorium / Orientation: awake and alert Psych affect normal Assessment & Plan Assessment/Plan (1) Acute appendicitis: QUALIFIERS: Acute appendicitis type: unspecified acute appendicitis type Qualified Code(s): K35.80 - Unspecified acute appendicitis PLAN: #Sepsis due to acute appendicitis with peritonitis * WBC today is 13. On IV Zosyn. * Status post appendectomy and has a drain in place. * General surgery on board. * #Acute asthma exacerbation * Stable. CT of the chest done showed evidence of atelectasis or scarring in the lower lungs but no clear evidence of pneumonia. * On breathing treatment with bronchodilators. Steroids were held on admission on account of sepsis. Patient does not seem to be in asthma exacerbation now so we will hold off on resuming steroids. * #Type 2 diabetes mellitus * on accuchecks q6hrs. ISS. * A1c is 6. * * #Hypertension: On Norvasc and enalapril. IV hydralazine as needed #Hyperlipidemia: Currently not on any medication. Follow-up with outpatient physician. #Morbid obesity: BMI is 46.7. Complicates acute care, management and expected recovery as well as prognosis. #GERD: on PPI DVT prophylaxis: on lovenox Visit Charges Inpatient E&M: 99804 Subs Hosp L2
[2020-09-17] MEDS: Acetaminophen 325 MG Tablet 650 MG PO ×2 (14:48→21:28)
[2020-09-17] MEDS: LORazepam 0.5 MG Tablet PO (14:49)
[2020-09-17 18:06] LABS: Bedside Glucose 145 mg/dL (70-110)
[2020-09-17 21:16] LABS: Bedside Glucose 130 mg/dL (70-110)
[2020-09-17] MEDS: Ondansetron 4 MG/2 ML Vial IV (21:28)
[2020-09-18] VITALS (9 sets, daily range): BP systolic 104–158; BP diastolic 53–89; PULSE 86–98; RESP 18–24; TEMP 36.6–37.2; O2SAT 88–98
[2020-09-18] MEDS: proCHLORPERazine 10 MG/2 ML Vial 5 MG IV (01:50)
[2020-09-18] MEDS: 0.9% Normal Saline 1,000 ML 125 ML IV ×3 (03:52→21:27)
[2020-09-18] MEDS: Ondansetron 4 MG/2 ML Vial IV (03:53)
--- NOTE | 2020-09-18 06:44 | PCM.PN.SRG ---
Subjective Subjective The patient reports that she had some emesis overnight. She is still not passing any flatus. Objective Data Objective Data Vital Signs: Vital Signs Temp Pulse Resp BP Pulse Ox 97.9 F 86 18 140/86 H 96 09/18/20 06:12 09/18/20 06:12 09/18/20 06:12 09/18/20 06:12 09/18/20 06:12 Oxygen Flow Rate (L/min) 2 Oxygen Delivery Method Nasal Cannula Weight: 263 lb 9 oz Body Mass Index (BMI) 46.7 Intake & Output: Intake and Output for Last 24 Hours 09/16/20 09/17/20 09/18/20 23:59 23:59 23:59 Intake Total 1679.17 / 1679.17 3800 / 3800 1341.67 / 1341.67 Output Total 255 / 255 2130 / 2130 440 / 440 Balance 1424.17 / 1424.17 1670 / 1670 901.67 / 901.67 Lab / Micro Data Result Diagrams: 09/17/20 05:24 09/17/20 05:24 Labs: Laboratory Results - last 24 hr 09/17/20 09/17/20 09/17/20 05:24 11:59 18:03 Sodium 143 Potassium 3.8 Chloride 109 H Carbon Dioxide 28.0 Anion Gap 6 BUN 19 H Creatinine 1.02 Estim Creat Clear Calc 40.63 Est GFR (MDRD) Af Amer 68 Est GFR (MDRD) Non-Af 56 L BUN/Creatinine Ratio 18.6 Glucose 126 H Calcium 8.4 L POC Glucose 122 H 145 H 09/17/20 21:06 Sodium Potassium Chloride Carbon Dioxide Anion Gap BUN Creatinine Estim Creat Clear Calc Est GFR (MDRD) Af Amer Est GFR (MDRD) Non-Af BUN/Creatinine Ratio Glucose Calcium POC Glucose 130 H Micro: Microbiology 09/17/20 00:35 Urine, Random Legionella Antigen - Final 09/17/20 00:35 Urine, Random Streptococcus pneumoniae Antigen (M - Final 09/16/20 17:35 Mucosa - Nasopharyngeal Respiratory Panel (PCR) - Final 09/16/20 12:44 Mucosa - Nose SARS-CoV-2 Antigen (Rapid) - Final Physical Exam Const oriented x3 and no apparent distress Resp normal respiratory effort GI Inspection: abdominal distention Palpation: tender Assessment & Plan Assessment/Plan (1) Purulent peritonitis: (2) Acute appendicitis: QUALIFIERS: Acute appendicitis type: unspecified acute appendicitis type Qualified Code(s): K35.80 - Unspecified acute appendicitis PLAN: The patient is still having an ileus due to her infection. Continue just n.p.o. with sips and chips and IV fluids until passing flatus. Continue IV antibiotics. Okay to start Lovenox. I will start a PPI as well. Continue to encourage ambulation and incentive spirometer use. David Hanley MD Pager: [facility] [address] [place] [address], [address] [place] [address] Office:
--- NOTE | 2020-09-18 06:49 | NURSING ---
0630. Rom drsg changed and cleansed with NS. new drain sponges applied and taped. minimal serosang drainage on old drain sponges. pt nauseous with 100cc of emesis after procedure.
--- NOTE | 2020-09-18 07:23 | PN.HOSP_ITS ---
Subjective Subjective Patient seen and examined. No active events overnight. Pain is well controlled. She has remained hemodynamically stable. She has several episodes of vomiting overnight, so an NG tube was inserted. She hasnt passed any flatus. Objective Data Objective Data Vital Signs: Vital Signs Temp Pulse Resp BP Pulse Ox 97.9 F 86 18 140/86 H 96 09/18/20 06:12 09/18/20 06:12 09/18/20 06:12 09/18/20 06:12 09/18/20 06:12 Oxygen Flow Rate (L/min) 2 Oxygen Delivery Method Nasal Cannula Weight: 263 lb 9 oz Body Mass Index (BMI) 46.7 Intake & Output: Intake and Output for Last 24 Hours 09/16/20 09/17/20 09/18/20 23:59 23:59 23:59 Intake Total 1679.17 / 1679.17 3800 / 3800 1341.67 / 1341.67 Output Total 255 / 255 2130 / 2130 640 / 640 Balance 1424.17 / 1424.17 1670 / 1670 701.67 / 701.67 Lab / Micro Data Result Diagrams: 09/17/20 05:24 09/17/20 05:24 Labs: Laboratory Results - last 24 hr 09/17/20 09/17/20 09/17/20 11:59 18:03 21:06 POC Glucose 122 H 145 H 130 H Micro: Microbiology 09/17/20 00:35 Urine, Random Legionella Antigen - Final 09/17/20 00:35 Urine, Random Streptococcus pneumoniae Antigen (M - Final 09/16/20 17:35 Mucosa - Nasopharyngeal Respiratory Panel (PCR) - Final 09/16/20 12:44 Mucosa - Nose SARS-CoV-2 Antigen (Rapid) - Final Physical Exam Const alert, oriented x3 and no apparent distress Exam Limitations: no limitations Nutritional Appearance: morbidly obese HEENT head/scalp atraumatic, moist oral mucous membranes and oropharynx normal Head and Scalp: normocephalic Eyes PERRL, EOMs intact bilaterally and conjunctivae normal Neck no lymphadenopathy, supple and no JVD Resp normal respiratory effort, no retractions, no use of accessory muscles and clear to auscultation bilaterally Cardio regular rate, regular rhythm, S1 normal heart sound, S2 normal heart sound and no murmurs GI GI Narrative: obese abdomen, intact dressing over surgical site, epigastric hernia, has NG tube in place, draining bilious fluid. Extremity normal to inspection Skin no rashes or lesions noted Neuro oriented x3 and moves all extremities Sensorium / Orientation: awake and alert Psych affect normal Assessment & Plan Assessment/Plan (1) Acute appendicitis: QUALIFIERS: Acute appendicitis type: unspecified acute appendicitis type Qualified Code(s): K35.80 - Unspecified acute appendicitis PLAN: #Sepsis due to acute appendicitis with peritonitis * On IV Zosyn. * Status post appendectomy and has a drain in place. * General surgery on board. * #Small bowel ileus * still hasnt passed flatus, and was vomiting last night. * NG tube in place and suctioning bilious fluid * general surgery on board. * to be on sips and chips per general surgery. #Asthma * not in exacerbation. * On breathing treatment with bronchodilators. * #Type 2 diabetes mellitus * on accuchecks q6hrs. ISS. * A1c is 6. * #Hypertension: On Norvasc and enalapril. IV hydralazine as needed #Hyperlipidemia: Currently not on any medication. Follow-up with outpatient physician. #Morbid obesity: BMI is 46.7. Complicates acute care, management and expected recovery as well as prognosis. #GERD: on PPI DVT prophylaxis: on lovenox Visit Charges Inpatient E&M: 18831 Subs Hosp L2
--- NOTE | 2020-09-18 07:51 | RAD_ITS ---
STUDY: X-RAY - ABDOMEN/PELVIS REASON FOR EXAM: Female, 75 years old. NG placement TECHNIQUE: Single AP view of the abdomen / pelvis. COMPARISON: None. FINDINGS: The tip of the orogastric tube is in the distal portion of the body of the stomach. Gaseous distention of small bowel loops and visualized large bowel. This most likely represents an ileus pattern. The visualized liver, spleen and kidneys are grossly normal in size and morphology. Normal soft tissue structures. There are diffuse degenerative changes of the visualized lumbar spine. Mild dextroscoliosis. RAD/Abdomen Single View (Portable) IMPRESSION: The tip of the orogastric tube is in the distal portion of the body of the stomach. Findings suggestive of an ileus gas pattern in the abdomen. Electronically Signed: Yon Terry MD at 12:25 EDT , Service support ,
--- NOTE | 2020-09-18 08:00 | NURSING ---
0745 NG 18fr placed into right nares at this time. pt tolerated procedure well and gastric content expelled. KUB ordered and will leave pt clamped until the KUB is completed.
--- NOTE | 2020-09-18 10:00 | CASEMGMT ---
Palliative screening tool completed at this time for Lace/Strata 3. Patient does not meet criteria at this time.
[2020-09-18] MEDS: Lisinopril 20 MG Tablet PO (10:55)
[2020-09-18] MEDS: Enoxaparin 40 MG/0.4 ML Syringe SC (10:56)
[2020-09-18] MEDS: amLODIPine 5 MG Tablet PO (10:56)
[2020-09-18] MEDS: Nystatin Powder 15gm Bottle 1 APPLIC TOPICAL ×2 (10:56→21:30)
[2020-09-18 11:38] LABS: Bedside Glucose 124 mg/dL (70-110)
--- NOTE | 2020-09-18 11:50 | CASEMGMT ---
RN CM Face to Face with patient for initial transition planning/care coordination assessment. RN CM introduced self and role at [facility]. Patient lying in bed, alert and oriented, daughter at bedside. Patient willing to participate in assessment and is able to answer all questions appropriately. Care providers, pharmacy, and demographics verified. Patient wishes to discharge home, will monitor for need for HHC. Patient states she has no further needs or concerns at this time. CM to follow for discharge planning needs that may arise. PCP: Sophia Specialists: none Preferred Pharmacy: [facility] Insurance: [employer] [facility] Prescription Benefit: yes Living Will/HPOA: yes, daughter Mima Salazar LNOK: daughter, son Living Arrangements: Patient lives alone in a 2 story home with bed and bath on first floor and ramp to enter the home. Transportation: self, children DME/HHC: patient states she has shower chair, raised toilet, cane, walker, and grab bars. Patient denies previous SNF or HHC. Disposition Plan: Patient to discharge home with family support and follow-up plans in place. Will monitor need for HHC. Renita FERNANDEZ, RN, CM
--- NOTE | 2020-09-18 12:25 | NURSING ---
NGT to LIWS. pt again reluctant to move and refuses to get up to chair now, states will get up around 1300. states pain mild, abd notable more soft un upper abd. no change in dressing. call light within reach awaiting physician order to change po protonix to iv.
[2020-09-18 12:40] LABS: Bedside Glucose 117 mg/dL (70-110)
[2020-09-18 17:21] LABS: Bedside Glucose 109 mg/dL (70-110)
[2020-09-18] MEDS: Ipratropium/Albuterol Sulfate 3 ML AMPUL.NEB INHALATION (19:34)
[2020-09-19] VITALS (10 sets, daily range): BP systolic 130–151; BP diastolic 60–81; PULSE 74–90; RESP 16–20; TEMP 36.8–37.1; O2SAT 87–97
[2020-09-19 02:26] LABS: Bedside Glucose 115 mg/dL (70-110)
[2020-09-19] MEDS: 0.9% Normal Saline 1,000 ML 125 ML IV (04:22)
--- NOTE | 2020-09-19 05:00 | RAD_ITS ---
STUDY: X-RAY - ABDOMEN/PELVIS REASON FOR EXAM: Female, 75 years old. Ileus TECHNIQUE: Single AP view of the abdomen / pelvis. COMPARISON: Comparison is made with prior study dated 09/18/2020. FINDINGS: A nasogastric tube is seen with the tip in the distal body of the stomach. Persistent ileus pattern. There is less gaseous distention of the bowel loops at this time. A catheter is seen within the pelvis. The visualized liver, spleen and kidneys are grossly normal in size and morphology. Normal soft tissue structures. Normal visualized osseous structures. RAD/Abdomen Single View (Portable) IMPRESSION: Persistent ileus pattern although there is less gaseous distention at this time. The tip of the enteric tube is in the distal portion of the body of the stomach. Electronically Signed: Yon Terry MD at 9:11 EDT , Service support ,
[2020-09-19 05:36] LABS: Bedside Glucose 93 mg/dL (70-110)
[2020-09-19] MEDS: Ipratropium/Albuterol Sulfate 3 ML AMPUL.NEB INHALATION ×3 (06:30→19:25)
[2020-09-19 07:26] LABS: Absolute Neutrophil Count 9.4 X10^3/uL (2.0-7.7); Basophil# 0.04 X10^3/uL; Basophil% 0.3 % (0-1); Eosinophil# 0.65 X10^3/uL; Hematocrit 40.4 % (37-47); Hemoglobin 12.5 g/dL (12.0-15.0); Lymphocyte % 15.4 % (19-41); Mean Corp Hgb Conc 30.9 g/dL (32-36); Mean Corpuscular Hgb 29.4 pg (27.0-32.0); Mean Corpuscular Volume 95.1 fL (81-99); Mean Platelet Vol. 10.7 fl (6.2-12.0); Monocyte# 0.87 X10^3/uL; Monocyte% 6.7 % (0-10); NRBC Flagged by Analyzer 0 % (0-5); Neutrophil # 9.38 X10^3/uL (2.7-7.7); Neutrophil % 72.1 % (47-70); Platelet Count 232 K/mm3 (150-450); RBC Distribution Width CV 13.2 % (11.6-14.6); RBC Distribution Width SD 46.1 fl (35.1-43.9); Red Blood Count 4.25 M/mm3 (4.2-5.4)
[2020-09-19 07:54] LABS: Anion Gap 5 (5-15); BUN 16 mg/dL (7-18); BUN/Creat Ratio 20.5 RATIO (10-20); Calcium,Total 8.4 mg/dL (8.5-10.1); Chloride 112 mmol/L (98-107); Creatinine, Serum 0.78 mg/dL (0.55-1.02); EST Glomerular Filtration Rate 77 mL/min (>60); Est Glom Filt Rate - Afr Amer 93 mL/min (>60); Estimated Creatinine Clearance 41.45 ml/min; Glucose 94 mg/dL (74-106); Potassium 3.6 mmol/L (3.5-5.1); Sodium Level 145 mmol/L (136-145)
--- NOTE | 2020-09-19 09:34 | PCM.PN.SRG ---
Subjective Subjective The patient reports she is passing flatus and having much less abdominal pain and distention. No nausea or vomiting. Objective Data Objective Data Vital Signs: Vital Signs Temp Pulse Resp BP Pulse Ox 98.3 F 90 18 151/75 H 93 09/19/20 07:24 09/19/20 07:24 09/19/20 07:24 09/19/20 07:24 09/19/20 07:24 Oxygen Flow Rate (L/min) 2 Oxygen Delivery Method Nasal Cannula Weight: 263 lb 9 oz Body Mass Index (BMI) 46.7 Intake & Output: Intake and Output for Last 24 Hours 09/17/20 09/18/20 09/19/20 23:59 23:59 23:59 Intake Total 3800 / 3800 3821.67 / 3871.67 1064.58 / 1064.58 Output Total 2130 / 2130 1395 / 1695 450 / 450 Balance 1670 / 1670 2426.67 / 2176.67 614.58 / 614.58 Lab / Micro Data Result Diagrams: 09/19/20 06:45 09/19/20 06:45 Labs: Laboratory Results - last 24 hr 09/18/20 09/18/20 09/18/20 06:09 12:24 16:54 WBC RBC Hgb Hct MCV MCH MCHC RDW Std Deviation RDW Coeff of Nena Plt Count MPV Immature Gran % (Auto) Neut % (Auto) Lymph % (Auto) [place] % (Auto) Eos % (Auto) Baso % (Auto) Absolute Neuts (auto) Absolute Lymphs (auto) Nucleated RBC % Sodium Potassium Chloride Carbon Dioxide Anion Gap BUN Creatinine Estim Creat Clear Calc Est GFR (MDRD) Af Amer Est GFR (MDRD) Non-Af BUN/Creatinine Ratio Glucose Calcium POC Glucose 124 H 117 H 109 09/19/20 09/19/20 09/19/20 00:33 05:23 06:45 WBC 13.0 H RBC 4.25 Hgb 12.5 Hct 40.4 MCV 95.1 MCH 29.4 MCHC 30.9 L RDW Std Deviation 46.1 H RDW Coeff of Nena 13.2 Plt Count 232 MPV 10.7 Immature Gran % (Auto) 0.500 Neut % (Auto) 72.1 H Lymph % (Auto) 15.4 L [place] % (Auto) 6.7 Eos % (Auto) 5.0 Baso % (Auto) 0.3 Absolute Neuts (auto) 9.4 H Absolute Lymphs (auto) 2.00 Nucleated RBC % 0 Sodium Potassium Chloride Carbon Dioxide Anion Gap BUN Creatinine Estim Creat Clear Calc Est GFR (MDRD) Af Amer Est GFR (MDRD) Non-Af BUN/Creatinine Ratio Glucose Calcium POC Glucose 115 H 93 09/19/20 06:45 WBC RBC Hgb Hct MCV MCH MCHC RDW Std Deviation RDW Coeff of Nena Plt Count MPV Immature Gran % (Auto) Neut % (Auto) Lymph % (Auto) [place] % (Auto) Eos % (Auto) Baso % (Auto) Absolute Neuts (auto) Absolute Lymphs (auto) Nucleated RBC % Sodium 145 Potassium 3.6 Chloride 112 H Carbon Dioxide 28.0 Anion Gap 5 BUN 16 Creatinine 0.78 Estim Creat Clear Calc 41.45 Est GFR (MDRD) Af Amer 93 Est GFR (MDRD) Non-Af 77 BUN/Creatinine Ratio 20.5 H Glucose 94 Calcium 8.4 L POC Glucose Micro: Microbiology 09/17/20 00:35 Urine, Random Legionella Antigen - Final 09/17/20 00:35 Urine, Random Streptococcus pneumoniae Antigen (M - Final 09/16/20 17:35 Mucosa - Nasopharyngeal Respiratory Panel (PCR) - Final 09/16/20 12:44 Mucosa - Nose SARS-CoV-2 Antigen (Rapid) - Final Radiography Diagnostic Testing: Radiology Impression KUB X-Ray 09/18/20 07:51 IMPRESSION: The tip of the orogastric tube is in the distal portion of the body of the stomach. Findings suggestive of an ileus gas pattern in the abdomen. Electronically Signed: Yon Terry MD at 12:25 EDT , Service support , KUB X-Ray 09/19/20 05:00 IMPRESSION: Persistent ileus pattern although there is less gaseous distention at this time. The tip of the enteric tube is in the distal portion of the body of the stomach. Electronically Signed: Yon Terry MD at 9:11 EDT , Service support , Physical Exam Const oriented x3 and no apparent distress Resp normal respiratory effort and clear to auscultation bilaterally Cardio regular rate and regular rhythm GI soft to palpation and non-tender Inspection: Negative for abdominal distention Assessment & Plan Assessment/Plan (1) Acute appendicitis: QUALIFIERS: Acute appendicitis type: unspecified acute appendicitis type Qualified Code(s): K35.80 - Unspecified acute appendicitis PLAN: The patient is doing better today. Her NG output appears clear and she is passing flatus and much less distended. X-ray shows decreased distention of the small bowel. White count is improving. I am going to remove her NG tube and start trial of clear liquid diet. Continue antibiotics until white count is normalized. VAZQUEZ is still serous. David Hanley MD Pager: [facility] [address] [place] [address], [address] [place] [address] Office:
[2020-09-19] MEDS: Aspirin E.C. 81 MG Tablet PO (10:21)
[2020-09-19] MEDS: Enoxaparin 40 MG/0.4 ML Syringe SC (10:23)
[2020-09-19] MEDS: Lisinopril 20 MG Tablet PO ×2 (10:23→21:51)
[2020-09-19] MEDS: amLODIPine 5 MG Tablet PO (10:23)
[2020-09-19] MEDS: Nystatin Powder 15gm Bottle 1 APPLIC TOPICAL ×2 (10:23→21:51)
--- NOTE | 2020-09-19 11:13 | CHAPLAIN ---
Type of Pastoral Visit _x__ Initial Visit ___ Follow-up Visit ___ On-call Visit ___ General Patient Visit ___ Spiritual Assessment ___ Family Conference ___ Bereavement ___ Rapid Response ___ Code Blue ___ Other (describe below) Pastoral Care Referral From _x__ Patient ___ Family ___ Nurse ___ Physician ___ Brokerage Branch Manager ___ [employer] Upholsterer ___ Other (describe below) Sacrament/Intervention _x__ Active listening ___ Anointing ___ Nondenominational ___ Bereavement ___ Communion ___ Rowan exploration ___ ___ Life review _x__ Prayer ___ Reconciliation ___ Sacrament of Sick ___ Supportive presence ___ Wedding ___ Other (describe below) Pastoral Comments
[2020-09-19 12:16] LABS: Bedside Glucose 134 mg/dL (70-110)
--- NOTE | 2020-09-19 13:32 | PN.HOSP_ITS ---
Subjective Subjective Patient seen and examined. She feels much better today. She is abdominal pain has improved markedly. She still has NG tube in but was not on suction at the time I reviewed her. She started passing gas. Resistance otherwise negative. She has remained hemodynamically stable. Objective Data Objective Data Vital Signs: Vital Signs Temp Pulse Resp BP Pulse Ox 98.6 F 77 16 130/60 H 93 09/19/20 13:21 09/19/20 13:21 09/19/20 13:21 09/19/20 13:21 09/19/20 13:21 Oxygen Flow Rate (L/min) 2 Oxygen Delivery Method Nasal Cannula Weight: 263 lb 9 oz Body Mass Index (BMI) 46.7 Intake & Output: Intake and Output for Last 24 Hours 09/17/20 09/18/20 09/19/20 23:59 23:59 23:59 Intake Total 3800 / 3800 3821.67 / 3871.67 2254.42 / 2254.42 Output Total 2130 / 2130 1395 / 1695 580 / 580 Balance 1670 / 1670 2426.67 / 2176.67 1674.42 / 1674.42 Lab / Micro Data Result Diagrams: 09/19/20 06:45 09/19/20 06:45 Labs: Laboratory Results - last 24 hr 09/18/20 09/19/20 09/19/20 16:54 00:33 05:23 WBC RBC Hgb Hct MCV MCH MCHC RDW Std Deviation RDW Coeff of Nena Plt Count MPV Immature Gran % (Auto) Neut % (Auto) Lymph % (Auto) [place] % (Auto) Eos % (Auto) Baso % (Auto) Absolute Neuts (auto) Absolute Lymphs (auto) Nucleated RBC % Sodium Potassium Chloride Carbon Dioxide Anion Gap BUN Creatinine Estim Creat Clear Calc Est GFR (MDRD) Af Amer Est GFR (MDRD) Non-Af BUN/Creatinine Ratio Glucose Calcium POC Glucose 109 115 H 93 09/19/20 09/19/20 09/19/20 06:45 06:45 12:08 WBC 13.0 H RBC 4.25 Hgb 12.5 Hct 40.4 MCV 95.1 MCH 29.4 MCHC 30.9 L RDW Std Deviation 46.1 H RDW Coeff of Nena 13.2 Plt Count 232 MPV 10.7 Immature Gran % (Auto) 0.500 Neut % (Auto) 72.1 H Lymph % (Auto) 15.4 L [place] % (Auto) 6.7 Eos % (Auto) 5.0 Baso % (Auto) 0.3 Absolute Neuts (auto) 9.4 H Absolute Lymphs (auto) 2.00 Nucleated RBC % 0 Sodium 145 Potassium 3.6 Chloride 112 H Carbon Dioxide 28.0 Anion Gap 5 BUN 16 Creatinine 0.78 Estim Creat Clear Calc 41.45 Est GFR (MDRD) Af Amer 93 Est GFR (MDRD) Non-Af 77 BUN/Creatinine Ratio 20.5 H Glucose 94 Calcium 8.4 L POC Glucose 134 H Micro: Microbiology 09/18/20 21:25 Sputum, Expectorated/Coughed Gram Stain - Final 09/17/20 00:35 Urine, Random Legionella Antigen - Final 09/17/20 00:35 Urine, Random Streptococcus pneumoniae Antigen (M - Final 09/16/20 17:35 Mucosa - Nasopharyngeal Respiratory Panel (PCR) - Final 09/16/20 12:44 Mucosa - Nose SARS-CoV-2 Antigen (Rapid) - Final Radiography Diagnostic Testing: Radiology Impression KUB X-Ray 09/19/20 05:00 IMPRESSION: Persistent ileus pattern although there is less gaseous distention at this time. The tip of the enteric tube is in the distal portion of the body of the stomach. Electronically Signed: Yon Terry MD at 9:11 EDT , Service support , Physical Exam Narrative Const alert, oriented x3 and no apparent distress Exam Limitations: no limitations Nutritional Appearance: morbidly obese HEENT head/scalp atraumatic, moist oral mucous membranes and oropharynx normal Eyes PERRL, EOMs intact bilaterally and conjunctivae normal Neck no lymphadenopathy, supple and no JVD Resp normal respiratory effort, no retractions, no use of accessory muscles and clear to auscultation bilaterally Cardio regular rate, regular rhythm, S1 normal heart sound, S2 normal heart sound and no murmurs GI normal to inspection, nondistended, normoactive bowel sounds, soft to palpation, non-tender and non-distended GI Narrative: obese abdomen, intact dressing over surgical site, epigastric hernia, has NG tube in place, abdomen not as distended as yesterday. Extremity normal to inspection Skin no rashes or lesions noted Neuro oriented x3 and moves all extremities Sensorium / Orientation: awake and alert Psych affect normal Assessment & Plan Assessment/Plan (1) Acute appendicitis: QUALIFIERS: Acute appendicitis type: unspecified acute appendicitis type Qualified Code(s): K35.80 - Unspecified acute appendicitis PLAN: #Sepsis due to acute appendicitis with peritonitis * On IV Zosyn. * Status post appendectomy and has a drain in place. * General surgery on board. * KUB today showed persistent ileus pattern tough less gaseous distension at this time. * #Small bowel ileus * now passing flatus. Feels much better. * NG tube in place was not placed on suction this morning * general surgery on board. * #Asthma * not in exacerbation. * On breathing treatment with bronchodilators. * #Type 2 diabetes mellitus * on accuchecks q6hrs. ISS. * A1c is 6. * #Hypertension: On Norvasc and enalapril. IV hydralazine as needed #Hyperlipidemia: Currently not on any medication. Follow-up with outpatient physician. #Morbid obesity: BMI is 46.7. Complicates acute care, management and expected recovery as well as prognosis. #GERD: on PPI DVT prophylaxis: on lovenox Visit Charges Inpatient E&M: 71666 Subs Hosp L2
[2020-09-19 16:35] LABS: Bedside Glucose 98 mg/dL (70-110)
[2020-09-19] MEDS: 0.9% Normal Saline 1,000 ML 40 ML IV (18:26)
[2020-09-19 20:36] LABS: Bedside Glucose 122 mg/dL (70-110)
[2020-09-19 23:36] LABS: Bedside Glucose 133 mg/dL (70-110)
[2020-09-20] VITALS (7 sets, daily range): BP systolic 120–155; BP diastolic 56–65; PULSE 73–78; RESP 16–18; TEMP 36.6–37.3; O2SAT 94–97
[2020-09-20 06:15] LABS: Bedside Glucose 113 mg/dL (70-110)
--- NOTE | 2020-09-20 06:33 | PN.SURG_ITS ---
Subjective Subjective Patient reports she is still passing flatus and tolerating clear liquids with no nausea or vomiting. Pain is minimal. She is not requiring any narcotics. Objective Data Objective Data Vital Signs: Vital Signs Temp Pulse Resp BP Pulse Ox 98.5 F 74 18 141/63 H 97 09/20/20 03:33 09/20/20 03:33 09/20/20 03:33 09/20/20 03:33 09/20/20 03:33 Oxygen Flow Rate (L/min) 2 Oxygen Delivery Method Nasal Cannula Weight: 263 lb 9 oz Body Mass Index (BMI) 46.7 Intake & Output: Intake and Output for Last 24 Hours 09/18/20 09/19/20 09/20/20 23:59 23:59 23:59 Intake Total 3821.67 / 3871.67 2544.58 / 2744.58 380 / 380 Output Total 1395 / 1695 600 / 680 250 / 250 Balance 2426.67 / 2176.67 1944.58 / 2064.58 130 / 130 Lab / Micro Data Result Diagrams: 09/19/20 06:45 09/19/20 06:45 Labs: Laboratory Results - last 24 hr 09/19/20 09/19/20 09/19/20 06:45 06:45 12:08 WBC 13.0 H RBC 4.25 Hgb 12.5 Hct 40.4 MCV 95.1 MCH 29.4 MCHC 30.9 L RDW Std Deviation 46.1 H RDW Coeff of Nena 13.2 Plt Count 232 MPV 10.7 Immature Gran % (Auto) 0.500 Neut % (Auto) 72.1 H Lymph % (Auto) 15.4 L [place] % (Auto) 6.7 Eos % (Auto) 5.0 Baso % (Auto) 0.3 Absolute Neuts (auto) 9.4 H Absolute Lymphs (auto) 2.00 Nucleated RBC % 0 Sodium 145 Potassium 3.6 Chloride 112 H Carbon Dioxide 28.0 Anion Gap 5 BUN 16 Creatinine 0.78 Estim Creat Clear Calc 41.45 Est GFR (MDRD) Af Amer 93 Est GFR (MDRD) Non-Af 77 BUN/Creatinine Ratio 20.5 H Glucose 94 Calcium 8.4 L POC Glucose 134 H 09/19/20 09/19/20 09/19/20 16:22 20:29 23:31 WBC RBC Hgb Hct MCV MCH MCHC RDW Std Deviation RDW Coeff of Nena Plt Count MPV Immature Gran % (Auto) Neut % (Auto) Lymph % (Auto) [place] % (Auto) Eos % (Auto) Baso % (Auto) Absolute Neuts (auto) Absolute Lymphs (auto) Nucleated RBC % Sodium Potassium Chloride Carbon Dioxide Anion Gap BUN Creatinine Estim Creat Clear Calc Est GFR (MDRD) Af Amer Est GFR (MDRD) Non-Af BUN/Creatinine Ratio Glucose Calcium POC Glucose 98 122 H 133 H 09/20/20 06:04 WBC RBC Hgb Hct MCV MCH MCHC RDW Std Deviation RDW Coeff of Nena Plt Count MPV Immature Gran % (Auto) Neut % (Auto) Lymph % (Auto) [place] % (Auto) Eos % (Auto) Baso % (Auto) Absolute Neuts (auto) Absolute Lymphs (auto) Nucleated RBC % Sodium Potassium Chloride Carbon Dioxide Anion Gap BUN Creatinine Estim Creat Clear Calc Est GFR (MDRD) Af Amer Est GFR (MDRD) Non-Af BUN/Creatinine Ratio Glucose Calcium POC Glucose 113 H Micro: Microbiology 09/18/20 21:25 Sputum, Expectorated/Coughed Gram Stain - Final 09/17/20 00:35 Urine, Random Legionella Antigen - Final 09/17/20 00:35 Urine, Random Streptococcus pneumoniae Antigen (M - Final 09/16/20 17:35 Mucosa - Nasopharyngeal Respiratory Panel (PCR) - Final 09/16/20 12:44 Mucosa - Nose SARS-CoV-2 Antigen (Rapid) - Final Radiography Diagnostic Testing: Radiology Impression KUB X-Ray 09/19/20 05:00 IMPRESSION: Persistent ileus pattern although there is less gaseous distention at this time. The tip of the enteric tube is in the distal portion of the body of the stomach. Electronically Signed: Yon Terry MD at 9:11 EDT , Service support , Physical Exam Const oriented x3 and no apparent distress Resp normal respiratory effort Cardio regular rate and regular rhythm GI soft to palpation and non-tender Assessment & Plan Assessment/Plan (1) Acute appendicitis: QUALIFIERS: Acute appendicitis type: unspecified acute appendicitis type Qualified Code(s): K35.80 - Unspecified acute appendicitis PLAN: Patient tolerated clears and is passing flatus. Her abdomen is less distended and soft and minimally tender. VAZQUEZ is serous. I will advance the patient to a transitional diet and stop IV fluids. I will also transition PPI to p.o. She reports she is very anxious and I have given her an increase in Ativan every 6 as needed. I will check back with her later today and remove her VAZQUEZ drain and decide about discharge. She will need p.o. antibiotics for home-going. David Hanley MD Pager: [facility] [address] [place] [address], [address] [place] [address] Office:
[2020-09-20] MEDS: Ipratropium/Albuterol Sulfate 3 ML AMPUL.NEB INHALATION ×3 (06:42→19:09)
[2020-09-20 06:55] LABS: Absolute Lymphocyte Count 1.32 X10^3/uL (0.83-4.51); Absolute Neutrophil Count 7.2 X10^3/uL (2.0-7.7); Basophil# 0.07 X10^3/uL; Basophil% 0.7 % (0-1); Eosinophil# 0.79 X10^3/uL; Eosinophils% 7.7 % (0-5); Hematocrit 38.9 % (37-47); Lymphocyte # 1.32 X10^3/ul (0.83-4.51); Lymphocyte % 12.8 % (19-41); Mean Corp Hgb Conc 30.8 g/dL (32-36); Mean Corpuscular Hgb 29.4 pg (27.0-32.0); Mean Corpuscular Volume 95.3 fL (81-99); Mean Platelet Vol. 10.3 fl (6.2-12.0); Monocyte# 0.82 X10^3/uL; Monocyte% 7.9 % (0-10); NRBC Flagged by Analyzer 0 % (0-5); Neutrophil # 7.23 X10^3/uL (2.7-7.7); Platelet Count 238 K/mm3 (150-450); RBC Distribution Width CV 13.1 % (11.6-14.6); RBC Distribution Width SD 46.3 fl (35.1-43.9); Red Blood Count 4.08 M/mm3 (4.2-5.4); White Blood Count 10.3 K/mm3 (4.4-11.0)
[2020-09-20 07:15] LABS: Anion Gap 7 (5-15); BUN 14 mg/dL (7-18); BUN/Creat Ratio 18.4 RATIO (10-20); Calcium,Total 8.3 mg/dL (8.5-10.1); Chloride 110 mmol/L (98-107); Creatinine, Serum 0.76 mg/dL (0.55-1.02); EST Glomerular Filtration Rate 79 mL/min (>60); Est Glom Filt Rate - Afr Amer 96 mL/min (>60); Estimated Creatinine Clearance 41.45 ml/min; Glucose 123 mg/dL (74-106); Potassium 3.5 mmol/L (3.5-5.1); Sodium Level 144 mmol/L (136-145)
[2020-09-20] MEDS: Nystatin Powder 15gm Bottle 1 APPLIC TOPICAL ×2 (08:55→21:14)
[2020-09-20] MEDS: Enoxaparin 40 MG/0.4 ML Syringe SC (08:59)
[2020-09-20] MEDS: Pantoprazole Sodium 40 MG Tablet PO (08:59)
[2020-09-20] MEDS: amLODIPine 5 MG Tablet PO (08:59)
[2020-09-20] MEDS: Lisinopril 20 MG Tablet PO ×2 (08:59→21:14)
--- NOTE | 2020-09-20 10:49 | DS.PCM_ITS ---
Providers Date of Admission: 09/16/20 Primary Care Physician: MICHAEL Davies Consultations 09/17/20 06:54 Consult: Hospitalist Routine Consulting Provider: Queta Salmeron Reason for Consult: med mgmt, pneumonia EMERGENT Consult: No MD Notified: Yes Date Notified:: 09/16/20 Time Notified: 15:00 Method of Notification: Verbal Reason For Visit: ACUTE APPENDICITIS Diagnosis Discharge Diagnosis (1) Acute appendicitis: Status: Acute Code(s): K35.80 - Unspecified acute appendicitis Qualifiers: Acute appendicitis type: unspecified acute appendicitis type Qualified Code(s): K35.80 - Unspecified acute appendicitis Medications at Discharge Home Medications acetaminophen 500 - 1,000 mg PO Q6H PRN PRN 12/22/13 amlodipine 5 mg PO DAILY 12/22/13 enalapril maleate 20 mg PO BID 12/22/13 fluticasone propionate 2 spray NASAL DAILY PRN 12/22/13 lorazepam 0.5 mg PO DAILY PRN PRN 12/22/13 omeprazole 20 mg PO DAILY 12/22/13 cholecalciferol (vitamin D3) 2,000 unit PO DAILY 06/12/16 aspirin 81 mg PO MOWEFR 10/15/17 turmeric-turmeric root extract 1 ea PO BID 10/15/17 albuterol sulfate [ProAir HFA] 2 puff INHALATION TID PRN 09/16/20 budesonide-formoterol [Symbicort] 2 puff INHALATION BID 09/16/20 etodolac 400 mg PO DAILY 09/16/20 methylprednisolone [Medrol (Elmo)] 4 mg PO 09/16/20 amoxicillin-pot clavulanate [Augmentin] 1 tab PO BID 10 Days #20 tab 09/20/20 Hospital Course Operations appendectomy Summary of Care Provided Minutes Spent on Discharge: 20 Hospital Course: Patient is a 75 y/o F I am following for abdominal pain. CT scan of the ab/pel demonstrated acute appendicitis. Dr. Hanley performed a laparoscopic appendectomy with drain placement on 09/16/20. Patient had a drain placed. She was noted to have acute appendicitis with peritonitis and purulence in the abdominal cavity. She had an extended hospitalization due to the amount of purulent material noted within the abdomen and post-operative ileus. Upon discharge, patient urinating well. She notes passing flatus. She is tolerating a transitional diet. Her drain was removed on 09/20. She will discharged on Augmentin x 10 days. ABG / Lab / Microbiology Data Result Diagrams: 09/20/20 06:42 09/20/20 06:42 Laboratory: Laboratory Results - last 24 hr 09/19/20 09/19/20 09/19/20 12:08 16:22 20:29 WBC RBC Hgb Hct MCV MCH MCHC RDW Std Deviation RDW Coeff of Nena Plt Count MPV Immature Gran % (Auto) Neut % (Auto) Lymph % (Auto) [place] % (Auto) Eos % (Auto) Baso % (Auto) Absolute Neuts (auto) Absolute Lymphs (auto) Nucleated RBC % Sodium Potassium Chloride Carbon Dioxide Anion Gap BUN Creatinine Estim Creat Clear Calc Est GFR (MDRD) Af Amer Est GFR (MDRD) Non-Af BUN/Creatinine Ratio Glucose Calcium POC Glucose 134 H 98 122 H 09/19/20 09/20/20 09/20/20 23:31 06:04 06:42 WBC 10.3 RBC 4.08 L Hgb 12.0 Hct 38.9 MCV 95.3 MCH 29.4 MCHC 30.8 L RDW Std Deviation 46.3 H RDW Coeff of Nena 13.1 Plt Count 238 MPV 10.3 Immature Gran % (Auto) 0.900 Neut % (Auto) 70.0 Lymph % (Auto) 12.8 L [place] % (Auto) 7.9 Eos % (Auto) 7.7 H Baso % (Auto) 0.7 Absolute Neuts (auto) 7.2 Absolute Lymphs (auto) 1.32 Nucleated RBC % 0 Sodium Potassium Chloride Carbon Dioxide Anion Gap BUN Creatinine Estim Creat Clear Calc Est GFR (MDRD) Af Amer Est GFR (MDRD) Non-Af BUN/Creatinine Ratio Glucose Calcium POC Glucose 133 H 113 H 09/20/20 06:42 WBC RBC Hgb Hct MCV MCH MCHC RDW Std Deviation RDW Coeff of Nena Plt Count MPV Immature Gran % (Auto) Neut % (Auto) Lymph % (Auto) [place] % (Auto) Eos % (Auto) Baso % (Auto) Absolute Neuts (auto) Absolute Lymphs (auto) Nucleated RBC % Sodium 144 Potassium 3.5 Chloride 110 H Carbon Dioxide 27.0 Anion Gap 7 BUN 14 Creatinine 0.76 Estim Creat Clear Calc 41.45 Est GFR (MDRD) Af Amer 96 Est GFR (MDRD) Non-Af 79 BUN/Creatinine Ratio 18.4 Glucose 123 H Calcium 8.3 L POC Glucose Microbiology: Microbiology 09/18/20 21:25 Gram Stain - Final Sputum, Expectorated/Coughed Respiratory Culture - Preliminary Presumptive C albicans Microbiology 09/18/20 21:25 Sputum, Expectorated/Coughed Gram Stain - Final 09/18/20 21:25 Sputum, Expectorated/Coughed Respiratory Culture - Preliminary Presumptive C albicans 09/17/20 00:35 Urine, Random Legionella Antigen - Final 09/17/20 00:35 Urine, Random Streptococcus pneumoniae Antigen (M - Final 09/16/20 17:35 Mucosa - Nasopharyngeal Respiratory Panel (PCR) - Final 09/16/20 12:44 Mucosa - Nose SARS-CoV-2 Antigen (Rapid) - Final D/C Instructions Discharge Diet: Light diet - advance as tolerated Discharge Activity: May Not Drive (2-3 days after discharge), May Shower and - (No lifting greater than 10 pounds for 1 week) May shower in (days): 1 Lifting Restricted to (Lbs): 10 Call your doctor if your incision/area has: Continuous Slow Oozing, Sudden Increased Bleeding, Increased Pain/ Swelling, Increased Redness, Foul Smelling Discharge and Swelling at the incision site Call your doctor if you observe: Fever of 101 or Higher and Uncontrolled pain Suture Line Care: Avoid Pulling/Pushing and Avoid Pinching/Bending Remove Dressing in: 2 days Cleanse incision/area with: Soap & Water Please Follow Up With: David Hanley MD When: 1 week. Please call [phone] to schedule a follow-up appointment. Meaningful Use Info Meaningful Use Diagnoses (Choose all that apply): None applicable Discharge Plan Admission Admit Date/Time: 09/16/20 15:09 Primary Reason for Your Visit: Acute appendicitis Attending Provider: Zeynep Morales Primary Care Provider: Orquidea Cortes NP Consulting Providers: Queta Salmeron Instructions Additional Instructions / Restrictions: No lifting greater than 10 pounds for 1 week. You may shower starting today Continue to keep drain site covered until completely closed. You may remove your plastic dressings over the incisions in 3 days from discharge Leave the steri-strips in place Return to work will be discussed at your follow-up appointment with Dr. Hanley in 1 week You will need to contact our office to schedule your follow-up appointment You will be sent home on oral antibiotics for 10 days Call our office if any questions or concerns following discharge Discharge Orders/Prescriptions Prescriptions: New amoxicillin-pot clavulanate [Augmentin] 875-125 mg tablet 1 tab PO BID 10 Days Qty: 20 RF: 0 Continued enalapril maleate 20 MG tablet 20 mg PO BID RF: 0 amlodipine 5 MG tablet 5 mg PO DAILY RF: 0 acetaminophen 500 MG tablet 500 - 1,000 mg PO Q6H PRN PRN (Reason: Mild/Moderate Pain) RF: 0 lorazepam 0.5 MG tablet 0.5 mg PO DAILY PRN PRN (Reason: Anxiety) RF: 0 omeprazole 20 MG capsule 20 mg PO DAILY RF: 0 fluticasone propionate 1 SPRAY spray,suspension 2 spray NASAL DAILY PRN (Reason: Allergies) RF: 0 cholecalciferol (vitamin D3) 2,000 UNIT capsule 2,000 unit PO DAILY RF: 0 aspirin 81 MG tablet 81 mg PO MOWEFR RF: 0 turmeric-turmeric root extract 1 EACH capsule 1 ea PO BID RF: 0 etodolac 400 mg Tablet Extended Release 24 Hr 400 mg PO DAILY RF: 0 methylprednisolone [Medrol ([place]mo)] 4 mg Tablets,Dose Pack 4 mg PO RF: 0 albuterol sulfate [ProAir HFA] 90 mcg/actuation Hfa Aerosol Inhaler 2 puff INHALATION TID PRN (Reason: Shortness Of Breath Or Wheezing) RF: 0 budesonide-formoterol [Symbicort] 160-4.5 mcg/actuation Hfa Aerosol Inhaler 2 puff INHALATION BID RF: 0 Discontinued Zithromax Z-Elmo 250 mg Capsule PO RF: 0 Referrals / Follow Up: David Hanley MD [STAFF PHYSICIAN] - In 1 Week (Follow-up in 1 week from discharge) Orquidea Cortes NP, [employer] [Primary Care Provider] - Disposition Disposition (needs filled in before D/C Order can be placed): Home, self care Visit Charges Inpatient E&M: 21103 Disch Hosp (No charge)
--- NOTE | 2020-09-20 11:15 | PN.HOSP_ITS ---
Subjective Subjective Patient seen and examined. NG tube is out. She feels much better today and has no complaints. Review of systems otherwise negative. She has remained hemodynamically stable. Objective Data Objective Data Vital Signs: Vital Signs Temp Pulse Resp BP Pulse Ox 98.3 F 76 18 141/63 H 94 09/20/20 08:37 09/20/20 08:37 09/20/20 08:37 09/20/20 08:37 09/20/20 08:37 Oxygen Flow Rate (L/min) 2 Oxygen Delivery Method Nasal Cannula Weight: 263 lb 9 oz Body Mass Index (BMI) 46.7 Intake & Output: Intake and Output for Last 24 Hours 09/18/20 09/19/20 09/20/20 23:59 23:59 23:59 Intake Total 3821.67 / 3871.67 2544.58 / 2744.58 942.67 / 942.67 Output Total 1395 / 1695 600 / 680 250 / 250 Balance 2426.67 / 2176.67 1944.58 / 2064.58 692.67 / 692.67 Lab / Micro Data Result Diagrams: 09/20/20 06:42 09/20/20 06:42 Labs: Laboratory Results - last 24 hr 09/19/20 09/19/20 09/19/20 12:08 16:22 20:29 WBC RBC Hgb Hct MCV MCH MCHC RDW Std Deviation RDW Coeff of Nena Plt Count MPV Immature Gran % (Auto) Neut % (Auto) Lymph % (Auto) [place] % (Auto) Eos % (Auto) Baso % (Auto) Absolute Neuts (auto) Absolute Lymphs (auto) Nucleated RBC % Sodium Potassium Chloride Carbon Dioxide Anion Gap BUN Creatinine Estim Creat Clear Calc Est GFR (MDRD) Af Amer Est GFR (MDRD) Non-Af BUN/Creatinine Ratio Glucose Calcium POC Glucose 134 H 98 122 H 09/19/20 09/20/20 09/20/20 23:31 06:04 06:42 WBC 10.3 RBC 4.08 L Hgb 12.0 Hct 38.9 MCV 95.3 MCH 29.4 MCHC 30.8 L RDW Std Deviation 46.3 H RDW Coeff of Nena 13.1 Plt Count 238 MPV 10.3 Immature Gran % (Auto) 0.900 Neut % (Auto) 70.0 Lymph % (Auto) 12.8 L [place] % (Auto) 7.9 Eos % (Auto) 7.7 H Baso % (Auto) 0.7 Absolute Neuts (auto) 7.2 Absolute Lymphs (auto) 1.32 Nucleated RBC % 0 Sodium Potassium Chloride Carbon Dioxide Anion Gap BUN Creatinine Estim Creat Clear Calc Est GFR (MDRD) Af Amer Est GFR (MDRD) Non-Af BUN/Creatinine Ratio Glucose Calcium POC Glucose 133 H 113 H 09/20/20 06:42 WBC RBC Hgb Hct MCV MCH MCHC RDW Std Deviation RDW Coeff of Nena Plt Count MPV Immature Gran % (Auto) Neut % (Auto) Lymph % (Auto) [place] % (Auto) Eos % (Auto) Baso % (Auto) Absolute Neuts (auto) Absolute Lymphs (auto) Nucleated RBC % Sodium 144 Potassium 3.5 Chloride 110 H Carbon Dioxide 27.0 Anion Gap 7 BUN 14 Creatinine 0.76 Estim Creat Clear Calc 41.45 Est GFR (MDRD) Af Amer 96 Est GFR (MDRD) Non-Af 79 BUN/Creatinine Ratio 18.4 Glucose 123 H Calcium 8.3 L POC Glucose Micro: Microbiology 09/18/20 21:25 Sputum, Expectorated/Coughed Gram Stain - Final 09/18/20 21:25 Sputum, Expectorated/Coughed Respiratory Culture - Preliminary Presumptive C albicans 09/17/20 00:35 Urine, Random Legionella Antigen - Final 09/17/20 00:35 Urine, Random Streptococcus pneumoniae Antigen (M - Final 09/16/20 17:35 Mucosa - Nasopharyngeal Respiratory Panel (PCR) - Final 09/16/20 12:44 Mucosa - Nose SARS-CoV-2 Antigen (Rapid) - Final Physical Exam Narrative Const alert, oriented x3 and no apparent distress Exam Limitations: no limitations Nutritional Appearance: morbidly obese HEENT head/scalp atraumatic, moist oral mucous membranes and oropharynx normal Eyes PERRL, EOMs intact bilaterally and conjunctivae normal Neck no lymphadenopathy, supple and no JVD Resp normal respiratory effort, no retractions, no use of accessory muscles and clear to auscultation bilaterally Cardio regular rate, regular rhythm, S1 normal heart sound, S2 normal heart sound and no murmurs GI GI Narrative: NG tube is out; abdomen soft, epigastric hernia, normal bowel so unds, no tenderness. Extremity normal to inspection Peripheral Pulses: Yes pulses 2+ throughout Skin no rashes or lesions noted Neuro oriented x3 and moves all extremities Sensorium / Orientation: awake and alert Psych affect normal Assessment & Plan Assessment/Plan (1) Acute appendicitis: QUALIFIERS: Acute appendicitis type: unspecified acute appendicitis type Qualified Code(s): K35.80 - Unspecified acute appendicitis PLAN: #Sepsis due to acute appendicitis with peritonitis * On IV Zosyn. * Status post appendectomy; drain removed * General surgery on board. * #Small bowel ileus * now passing flatus. Feels much better. * NG tube out, and patient on transitional diet, which she is tolerating * general surgery on board. * #Asthma * not in exacerbation. * On breathing treatment with bronchodilators. * #Type 2 diabetes mellitus * on accuchecks q6hrs. ISS. * A1c is 6. * #Hypertension: On Norvasc and enalapril. IV hydralazine as needed #Hyperlipidemia: Currently not on any medication. Follow-up with outpatient physician. #Morbid obesity: BMI is 46.7. Complicates acute care, management and expected recovery as well as prognosis. #GERD: on PPI DVT prophylaxis: on lovenox Charges/Coding Visit Charges Inpatient E&M: 93439 Subs Hosp L2
[2020-09-20 11:35] LABS: Bedside Glucose 96 mg/dL (70-110)
--- NOTE | 2020-09-20 13:16 | EKG12_ITS ---
Test Reason : Blood Pressure : / mmHG Vent. Rate : 079 BPM Atrial Rate : 079 BPM P-R Int : 162 ms QRS Dur : 088 ms QT Int : 392 ms P-R-T Axes : 036 -23 066 degrees QTc Int : 449 ms Normal sinus rhythm Left ventricular hypertrophy Nonspecific ST and T wave abnormality Abnormal ECG Confirmed by JOSE MELENDEZ, DANIELLE ([id number]), online editor JORDAN GRIMALDO ([id number]) on 09/25/2020 10:36:18 AM Referred By: DANIEL Confirmed By:DANIELLE GARCIA MD
--- NOTE | 2020-09-20 13:18 | RAD_ITS ---
STUDY: X-RAY CHEST REASON FOR EXAM: Female, 75 years old. chest discomfort TECHNIQUE: PA and lateral views of the chest. COMPARISON: 09/14/2020 FINDINGS: The lungs are clear and expanded. Elevated right hemidiaphragm with some right lower lobe atelectasis. Normal size heart. Normal mediastinum and chris. Normal visualized pulmonary arteries. Normal visualized aortic arch and descending thoracic aorta. Normal visualized thoracic spine. Normal visualized ribs, clavicles, and shoulders. There is no demonstrated abnormality of the visualized soft tissue structures of the upper abdomen. RAD/Chest PA and Lateral IMPRESSION: Elevated right hemidiaphragm with some right lower lobe atelectasis. Electronically Signed: Lacho Bueno MD at 14:18 EDT Tel , Service support ,
[2020-09-20] MEDS: Acetaminophen 325 MG Tablet 650 MG PO (13:46)
[2020-09-20] MEDS: LORazepam 1 MG Tablet PO (13:47)
[2020-09-20] MEDS: 0.9% Saline Lock 10 ML Syringe IV (13:57)
--- NOTE | 2020-09-20 14:45 | CT_ITS ---
STUDY: CTA CHEST REASON FOR EXAM: Female, 75 years old. Post-surgical chest pain RADIATION DOSAGE (If Supplied By Facility): CTDIvol = ( 10.90 ) mGy, DLP = ( 420.26 ) mGycm TECHNIQUE: The examination was performed with the intravenous administration of IV 100mL Isovue-300. Post-processing of the angiographic images was performed, with multiplanar reformation and 3D reconstruction. Individualized dose optimization techniques were used for this CT. COMPARISON: Comparison is made with prior study dated 11/12/2018. FINDINGS: Normal enhancement of the main pulmonary artery and right and left pulmonary arteries. Normal enhancement of the bilateral peripheral pulmonary arteries. There is no demonstrated pulmonary embolism. Normal thoracic aorta and visualized great vessels. There is no demonstrated aortic dissection. There are calcifications of the coronary arteries. Normal mediastinum. Normal hilar regions. Normal visualized trachea and bronchi. The lungs are well expanded. There is a small right pleural effusion with infiltration and/or atelectasis in the posterior medial segment of the right lower lobe. Minimal left pleural thickening with atelectasis in the left lower lobe. Normal pleura. Normal chest wall structures. There are degenerative changes of thoracic spine. Increased kyphosis. 50% loss of height of a lower dorsal vertebrae. The patient is status post cholecystectomy. Stable small cyst in the upper pole of the left kidney. CT/CTA Chest W/WO Contrast IMPRESSION: No evidence of a pulmonary embolism. Small right pleural effusion with right basilar infiltration and/or atelectasis. Minimal left pleural thickening with minimal left basilar atelectasis. Electronically Signed: Yon Terry MD at 15:32 EDT , Service support ,
[2020-09-20 17:11] LABS: Bedside Glucose 105 mg/dL (70-110)
[2020-09-20 23:40] LABS: Bedside Glucose 94 mg/dL (70-110)
[2020-09-21 03:42] VITALS: BP 146/74; PULSE 72; RESP 18; TEMP 36.7; O2SAT 94
[2020-09-21] MEDS: Acetaminophen 325 MG Tablet 650 MG PO (03:50)
[2020-09-21 06:26] LABS: Bedside Glucose 100 mg/dL (70-110)
[2020-09-21] MEDS: Bisacodyl 10 MG Suppository RC (06:35)
[2020-09-21 06:59] VITALS: PULSE 73; RESP 16; O2SAT 96
[2020-09-21] MEDS: Ipratropium/Albuterol Sulfate 3 ML AMPUL.NEB INHALATION (06:59)
--- NOTE | 2020-09-21 07:47 | PCM.PN.SRG ---
Subjective Subjective Patient tolerating diet, having bowel function, CTA was negative for PE patient currently on room air Objective Data Objective Data Vital Signs: Vital Signs Temp Pulse Resp BP Pulse Ox 98.1 F 72 18 146/74 H 94 09/21/20 03:42 09/21/20 03:42 09/21/20 03:42 09/21/20 03:42 09/21/20 03:42 Oxygen Flow Rate (L/min) 2 Oxygen Delivery Method Nasal Cannula Weight: 263 lb 9 oz Body Mass Index (BMI) 46.7 Intake & Output: Intake and Output for Last 24 Hours 09/19/20 09/20/20 09/21/20 23:59 23:59 23:59 Intake Total 2544.58 / 2744.58 1242.67 / 1242.67 611.25 / 611.25 Output Total 600 / 680 250 / 250 Balance 1944.58 / 2064.58 992.67 / 992.67 611.25 / 611.25 Lab / Micro Data Result Diagrams: 09/20/20 06:42 09/20/20 06:42 Labs: Laboratory Results - last 24 hr 09/20/20 09/20/20 09/20/20 11:30 13:33 16:36 Troponin I < 0.015 < 0.015 POC Glucose 96 09/20/20 09/20/20 09/20/20 17:03 19:02 23:38 Troponin I < 0.015 POC Glucose 105 94 09/21/20 06:10 Troponin I POC Glucose 100 Micro: Microbiology 09/18/20 21:25 Sputum, Expectorated/Coughed Gram Stain - Final 09/18/20 21:25 Sputum, Expectorated/Coughed Respiratory Culture - Preliminary Presumptive C albicans 09/17/20 00:35 Urine, Random Legionella Antigen - Final 09/17/20 00:35 Urine, Random Streptococcus pneumoniae Antigen (M - Final 09/16/20 17:35 Mucosa - Nasopharyngeal Respiratory Panel (PCR) - Final 09/16/20 12:44 Mucosa - Nose SARS-CoV-2 Antigen (Rapid) - Final Radiography Diagnostic Testing: Radiology Impression Chest X-Ray 09/20/20 13:18 IMPRESSION: Elevated right hemidiaphragm with some right lower lobe atelectasis. Electronically Signed: Lacho Bueno MD at 14:18 EDT Tel , Service support , Chest CTA 09/20/20 14:45 IMPRESSION: No evidence of a pulmonary embolism. Small right pleural effusion with right basilar infiltration and/or atelectasis. Minimal left pleural thickening with minimal left basilar atelectasis. Electronically Signed: Yon Terry MD at 15:32 EDT , Service support , Physical Exam Const oriented x3 and no apparent distress Resp normal respiratory effort Cardio regular rate and regular rhythm GI soft to palpation and non-tender Assessment & Plan Assessment/Plan (1) Acute appendicitis: QUALIFIERS: Acute appendicitis type: unspecified acute appendicitis type Qualified Code(s): K35.80 - Unspecified acute appendicitis PLAN: Patient tolerated transitional diet having bowel function. Okay to be DC'd home per surgery standpoint. Merced Vasquez M.D. Pager: [phone] [facility] [address] [place] [address], [address] [place] [address] Office: [phone]
[2020-09-21 09:57] VITALS: BP 144/67; PULSE 71; RESP 18; TEMP 37.1; O2SAT 93
--- NOTE | 2020-09-21 09:57 | CASEMGMT ---
SHANNA STEELE NOTE: Pt being discharged home. Per nursing, pt is interested in HHC. SHANNA STEELE to room to talk w/pt. Pt initially stated she was interested in HHC d/t dressings. Pt made aware of [facility] criteria for HHC of being homebound. Pt stated, Oh no, I'm not homebound. I'm planning on going back to work on Thursday. Pt made aware nursing would review instructions on wound care/dressings prior to discharge and the instructions would be in the discharge paperwork. Pt voices understanding. Pt also declines any OP therapy and denies any discharge planning needs. Sylwia FERNANDEZ RN CM
[2020-09-21] MEDS: Enoxaparin 40 MG/0.4 ML Syringe SC (10:03)
[2020-09-21] MEDS: Aspirin E.C. 81 MG Tablet PO (10:03)
[2020-09-21] MEDS: amLODIPine 5 MG Tablet PO (10:03)
[2020-09-21] MEDS: Pantoprazole Sodium 40 MG Tablet PO (10:03)
[2020-09-21] MEDS: Lisinopril 20 MG Tablet PO (10:03)
--- NOTE | 2020-09-21 10:47 | PHA.DC.MC ---
Pharmacy Service has performed discharge medication reconciliation and counseling for this patient. 1. AUGMENTIN 875MG 1T PO BID X 10 DAYS The patient's discharge medication list was reviewed for discrepancies and discrepancies were resolved. Patient asked this [facility] to have her prescription for Augmentin transferred to our retail pharmacy and for it to be delivered to her room. This [facility] called our retail pharmacy and spoke to Aqu[facility] to request transfer and delivery. Home Medications acetaminophen 500 - 1,000 mg PO Q6H PRN PRN 12/22/13 amlodipine 5 mg PO DAILY 12/22/13 enalapril maleate 20 mg PO BID 12/22/13 fluticasone propionate 2 spray NASAL DAILY PRN 12/22/13 lorazepam 0.5 mg PO DAILY PRN PRN 12/22/13 omeprazole 20 mg PO DAILY 12/22/13 cholecalciferol (vitamin D3) 2,000 unit PO DAILY 06/12/16 aspirin 81 mg PO MOWEFR 10/15/17 turmeric-turmeric root extract 1 ea PO BID 10/15/17 albuterol sulfate [ProAir HFA] 2 puff INHALATION TID PRN 09/16/20 budesonide-formoterol [Symbicort] 2 puff INHALATION BID 09/16/20 etodolac 400 mg PO DAILY 09/16/20 methylprednisolone [Medrol (Elmo)] 4 mg PO 09/16/20 amoxicillin-pot clavulanate [Augmentin] 1 tab PO BID 10 Days #20 tab 09/20/20 The patient was counseled on the following discharge medications and changes in medications for homegoing were reviewed. The Reason for Use, instructions for use, and potential side effects were reviewed for all new medications. The patient's questions regarding all of their medications were answered. The patient was able to verbally demonstrate an understanding of their discharge medications.
--- NOTE | 2020-09-21 11:23 | PN.HOSP_ITS ---
Subjective Subjective Patient seen and examined. She feels very well and had no complaints. She is off oxygen. Review of systems otherwise negative. She has remained hemodynamically stable. Objective Data Objective Data Vital Signs: Vital Signs Temp Pulse Resp BP Pulse Ox 98.8 F 71 18 144/67 H 93 09/21/20 09:57 09/21/20 09:57 09/21/20 09:57 09/21/20 09:57 09/21/20 09:57 Oxygen Flow Rate (L/min) 2 Oxygen Delivery Method Room Air Weight: 263 lb 9 oz Body Mass Index (BMI) 46.7 Intake & Output: Intake and Output for Last 24 Hours 09/19/20 09/20/20 09/21/20 23:59 23:59 23:59 Intake Total 2544.58 / 2744.58 1242.67 / 1242.67 661.25 / 661.25 Output Total 600 / 680 250 / 250 Balance 1944.58 / 2064.58 992.67 / 992.67 661.25 / 661.25 Lab / Micro Data Result Diagrams: 09/20/20 06:42 09/20/20 06:42 Labs: Laboratory Results - last 24 hr 09/20/20 09/20/20 09/20/20 11:30 13:33 16:36 Troponin I < 0.015 < 0.015 POC Glucose 96 09/20/20 09/20/20 09/20/20 17:03 19:02 23:38 Troponin I < 0.015 POC Glucose 105 94 09/21/20 06:10 Troponin I POC Glucose 100 Micro: Microbiology 09/18/20 21:25 Sputum, Expectorated/Coughed Gram Stain - Final 09/18/20 21:25 Sputum, Expectorated/Coughed Respiratory Culture - Final Presumptive C albicans 09/17/20 00:35 Urine, Random Legionella Antigen - Final 09/17/20 00:35 Urine, Random Streptococcus pneumoniae Antigen (M - Final 09/16/20 17:35 Mucosa - Nasopharyngeal Respiratory Panel (PCR) - Final 09/16/20 12:44 Mucosa - Nose SARS-CoV-2 Antigen (Rapid) - Final Radiography Diagnostic Testing: Radiology Impression Chest X-Ray 09/20/20 13:18 IMPRESSION: Elevated right hemidiaphragm with some right lower lobe atelectasis. Electronically Signed: Lacho Bueno MD at 14:18 EDT Tel , Service support , Chest CTA 09/20/20 14:45 IMPRESSION: No evidence of a pulmonary embolism. Small right pleural effusion with right basilar infiltration and/or atelectasis. Minimal left pleural thickening with minimal left basilar atelectasis. Electronically Signed: Yon Terry MD at 15:32 EDT , Service support , Physical Exam Narrative Const alert, oriented x3 and no apparent distress Exam Limitations: no limitations Nutritional Appearance: morbidly obese HEENT head/scalp atraumatic, moist oral mucous membranes and oropharynx normal Head and Scalp: normocephalic Eyes PERRL, EOMs intact bilaterally and conjunctivae normal Neck no lymphadenopathy, supple and no JVD Resp normal respiratory effort, no retractions, no use of accessory muscles and clear to auscultation bilaterally Cardio regular rate, regular rhythm, S1 normal heart sound, S2 normal heart sound and no murmurs GI normal to inspection, nondistended, normoactive bowel sounds, soft to palpation, non-tender and non-distended GI Narrative: NG tube is out; abdomen soft, epigastric hernia, normal bowel sounds, no tenderness. Extremity normal to inspection Skin no rashes or lesions noted Neuro oriented x3 and moves all extremities Sensorium / Orientation: awake and alert Psych affect normal Assessment & Plan Assessment/Plan (1) Acute appendicitis: QUALIFIERS: Acute appendicitis type: unspecified acute appendicitis type Qualified Code(s): K35.80 - Unspecified acute appendicitis PLAN: #Sepsis due to acute appendicitis with peritonitis * Off IV zosyn; now on PO augmentin. * Status post appendectomy; drain removed * General surgery on board. * #Small bowel ileus * now passing flatus. Feels much better. * NG tube out, and tolerated oral diet * general surgery on board. * #Asthma * not in exacerbation. * On breathing treatment with bronchodilators. * #Type 2 diabetes mellitus * on accuchecks q6hrs. ISS. * A1c is 6. * #Hypertension: On Norvasc and enalapril. IV hydralazine as needed #Hyperlipidemia: Currently not on any medication. Follow-up with outpatient umesh aponte. #Morbid obesity: BMI is 46.7. Complicates acute care, management and expected recovery as well as prognosis. #GERD: on PPI DVT prophylaxis: on lovenox Charges/Coding Visit Charges Inpatient E&M: 75810 Subs Hosp L2
[2020-09-21 11:45] LABS: Bedside Glucose 110 mg/dL (70-110)
[2020-09-21 12:53] VITALS: O2SAT 87; O2SAT 89; O2SAT 93
--- NOTE | 2020-09-21 13:42 | CASEMGMT ---
Addendum entered by Becky Medina 09/21/20 13:52: Charge nurse, Elizabeth, to notify Dr Vasquez that pt qualifies for O2 @ d/c. Original Note: SHANNA STEELE NOTE: Pt qualifies for Home O2 @ 3 L/M w/exertion. Pt was provided with list of DME consistent with the patient's preferred geographic region, medical needs, and insurance network. The pt's states she has no preference. Made aware [facility] is an affiliate of [facility] and states [facility]. Script obtained from Dr Morales and faxed to [facility]. TC to Janine @ [facility]. She was made aware pt is being discharged home today and they will deliver portable O2 to pt's room. Pt aware to call [facility] when she arrives home to have O2 concentrator and other portable tanks delivered. Sylwia FERNANDEZ RN, CM
[2020-09-21 14:26] VITALS: BP 139/96; PULSE 76; RESP 18; TEMP 37.4; O2SAT 96
--- NOTE | 2020-09-24 15:20 | CASEMGMT ---
RN CM Discharge Follow Up Phone Call: LACE: 12 Strata:3 Call Date: 09.24.20 Discharge Date: 09.21.20 Time of Call:1520 Duration:<1min Admitting Dx: acute appendicitis RN CEDRIC attempted to complete follow up phone call after recent hospitalization. Left message on patient identified voicemail with return call information.
== END 2020-09-21 15:43 | disposition home or self-care (01) | DRG 853 ==
LOC: ED 13:08 → MS3 16:41
PROVIDERS: Family Medicine; Admitting Provider Surgery; Emergency Provider Emergency Medicine; PCP Nurse Practitioner; Visit Provider Student in an Organized Health Care Education/Training Program
PROC: 0DTJ4ZZ Resection of Appendix, Percutaneous Endoscopic Approach (ICD-10-PCS; CPT 44970; principal; 2020-09-16 13:30)
DX: A41.9 Sepsis, unspecified organism (principal); J18.9 Pneumonia, unspecified organism; K35.20 Acute appendicitis with generalized peritonitis, without abscess; Z68.42 Body mass index [BMI] 45.0-49.9, adult; K56.7 Ileus, unspecified; J45.909 Unspecified asthma, uncomplicated; K44.9 Diaphragmatic hernia without obstruction or gangrene; E11.22 Type 2 diabetes mellitus with diabetic chronic kidney disease; E66.01 Morbid (severe) obesity due to excess calories; E78.5 Hyperlipidemia, unspecified; R09.02 Hypoxemia; I12.9 Hypertensive chronic kidney disease with stage 1 through stage 4 chronic kidney disease, or unspecified chronic kidney disease; F41.9 Anxiety disorder, unspecified; F32.9 Major depressive disorder, single episode, unspecified; N18.30 Chronic kidney disease, stage 3 unspecified; K21.9 Gastro-esophageal reflux disease without esophagitis; Z79.899 Other long term (current) drug therapy; Z79.82 Long term (current) use of aspirin; Z79.51 Long term (current) use of inhaled steroids
CPT/HCPCS: 36415; 71046; 71275; 74018; 74177; 80048; 80053; 81001; 82962; 83036; 83690; 84484; 85025; 87070; 87205; 87426; 87449; 87633; 88304; 93005; 94640; 99285; J7030; Q9967; A4216; C1760; J2405

== ENCOUNTER 2021-01-27 12:34 | Emergency (ER) | payer MEDICARE, SELFPAY ==
[2021-01-27 12:35] VITALS: BP 181/66; PULSE 65; RESP 18; TEMP 36.6; O2SAT 100; BMI 41.5
--- NOTE | 2021-01-27 14:09 | RAD_ITS ---
STUDY: X-RAY - PELVIS AND LEFT HIP REASON FOR EXAM: Female, 75 years old. Hip pain TECHNIQUE: 3 views of the pelvis and hip. COMPARISON: 09/19/2020 FINDINGS: There is a non-specific bowel gas pattern. Normal visualized soft tissue structures. There are degenerative changes of the visualized lower lumbar spine. There are degenerative changes of the sacroiliac joints. Normal bilateral superior and inferior pubic rami. Normal pubic symphysis. Normal bilateral ischial tuberosities. Normal visualized femoral head. Normal acetabulum. Normal hip joint. RAD/HIP, UNI W/ Pelvis 2-3 Views IMPRESSION: Degenerative changes. Electronically Signed: Diann Syed MD at 16:09 EDT Tel , Service support ,
--- NOTE | 2021-01-27 15:32 | ED.VIS.LOWEX ---
HPI History of Present Illness Chief Complaint: Lower Extremity Injury Narrative Narrative: 75-year-old female presenting with left hip pain. She states has been experiencing this for the last week or so. Patient states that when she sitting at work she has more pain in her hip and has to stand up and stretch it out. After she stands up her pain resolves and she is able to ambulate. Today when she was in latter day she was trying to step up a step and felt this pain again. She helped herself to a chair and sat. Initially she was unable to get up and now she is able to ambulate with antalgic gait. She took ibuprofen this morning at about 730. She has not taken anything else. Denies any direct trauma. PFSH PFSH Medical History Asthma Diabetes Hiatal hernia Hypertension Hypertension Non-smoker Home Medications acetaminophen 500 - 1,000 mg PO Q6H PRN PRN 12/22/13 [History Last Taken Unknown] amlodipine 5 mg PO DAILY 12/22/13 [History Last Taken 10/22/17 07:30] enalapril maleate 20 mg PO BID 12/22/13 [History Last Taken 10/22/17 07:30] fluticasone propionate 2 spray NASAL DAILY PRN 12/22/13 [History Last Taken Unknown] lorazepam 0.5 mg PO DAILY PRN PRN 12/22/13 [History Last Taken Unknown] omeprazole 20 mg PO DAILY 12/22/13 [History Last Taken 10/22/17 07:30] cholecalciferol (vitamin D3) 2,000 unit PO DAILY 06/12/16 [History Last Taken Unknown] aspirin 81 mg PO MOWEFR 10/15/17 [History Last Taken Unknown] turmeric-turmeric root extract 1 ea PO BID 10/15/17 [History Last Taken Unknown] albuterol sulfate [ProAir HFA] 2 puff INHALATION TID PRN 09/16/20 [History Last Taken Unknown] budesonide-formoterol [Symbicort] 2 puff INHALATION BID 09/16/20 [History Last Taken Unknown] etodolac 400 mg PO DAILY 09/16/20 [History Last Taken Unknown] methylprednisolone [Medrol (Elmo)] 4 mg PO 09/16/20 [History Last Taken Unknown] amoxicillin-pot clavulanate [Augmentin] 1 tab PO BID 10 Days #20 tab 09/20/20 [Rx Last Taken Unknown] Allergy/AdvReac Type Severity Reaction Status Date / Time adhesive tape AdvReac REDNESS TO Verified 10/01/20 08:16 SKIN Bjejvff-Frw-Bkh Reductase AdvReac Other Verified 10/01/20 08:16 Inhibitor Family History Father Hypertension Mother Raynauds disease Scleroderma Surgical History H/O total knee replacement H/O tubal ligation History of hysteroscopy S/P appendectomy S/P cholecystectomy Social History adopted: No household members: none housing: house number of children: 2 current occupational status: employed current occupation: [employer] Smoking Status: Never smoker alcohol intake: never substance use type: does not use seatbelt use: always do you feel safe at home: Yes additional social history: ROS ROS ED Constitutional Constitutional ED: Denies chills, fever(s) or sweats Eyes Eyes: Denies blurry vision or diplopia ENT ENT ED: Denies rhinorrhea or sore throat Cardiovascular Cardiovascular: Denies chest pain or palpitations Respiratory/Chest Respiratory/Chest: Denies cough, dyspnea or sputum Gastrointestinal Gastrointestinal: Denies abdominal pain, nausea or vomiting Genitourinary Genitourinary ED: Denies dysuria or hematuria Musculoskeletal Musculoskeletal: Reports other Details: Left hip pain Integumentary Denies Abrasions or rash Neurologic Neurologic: Denies headache(s) or paresthesias EXAM Physical Exam Const Vital Signs: 01/27/21 12:35 Temperature 98 F Temperature Source Temporal Pulse Rate 65 Respiratory Rate 18 Blood Pressure 181/66 H Blood Pressure Mean 104 Pulse Ox 100 Oxygen Delivery Method Room Air Positive well nourished and obese General Appearance ED: NAD Nutritional Appearance: obese HEENT normocephalic and atraumatic Eyes PERRL Resp normal respiratory effort Cardio regular rate and regular rhythm Extremity Extremity Narrative: Left hip tenderness to palpation over the greater trochanter. No deformity. No ecchymosis or rash. Negative logroll. Patient able to stand and walk. She was able to ambulate all the way to the bathroom and back. Neuro oriented x3 Sensorium / Orientation: alert Psych mental status grossly normal Skin Lesions: No no lesions Rashes: No no rashes MDM MDM MDM Narrative Medical decision making narrative: Patient presenting with left hip pain. She states that it is improving currently. She was able to stand and walk across the ER to the restroom and back without an assistive device. I did obtain an x-ray of the left hip which on my interpretation shows no fracture or subluxation. The radiologist does agree patient given a shot of Toradol IM. Patient counseled on alternate Tylenol and ibuprofen at home. She will follow up with her PCP to ensure resolution. Patient discharged able condition. Impression: 1. Left hip strain Radiography Diagnostic Testing: Clinical Impression(s) from Imaging Studies Hip/Pelvis X-Ray 01/27/21 14:09 IMPRESSION: Degenerative changes. Electronically Signed: Diann Syed MD at 16:09 EDT Tel , Service support , Discharge Plan Triage Chief Complaint: Lower Extremity Injury ED Provider: Russel Wade Dx/Rx/DC Orders Instructions: ED Hip Strain Prescriptions: No Action enalapril maleate 20 MG tablet 20 mg PO BID RF: 0 amlodipine 5 MG tablet 5 mg PO DAILY RF: 0 acetaminophen 500 MG tablet 500 - 1,000 mg PO Q6H PRN PRN (Reason: Mild/Moderate Pain) RF: 0 lorazepam 0.5 MG tablet 0.5 mg PO DAILY PRN PRN (Reason: Anxiety) RF: 0 omeprazole 20 MG capsule 20 mg PO DAILY RF: 0 fluticasone propionate 1 SPRAY spray,suspension 2 spray NASAL DAILY PRN (Reason: Allergies) RF: 0 cholecalciferol (vitamin D3) 2,000 UNIT capsule 2,000 unit PO DAILY RF: 0 aspirin 81 MG tablet 81 mg PO MOWEFR RF: 0 turmeric-turmeric root extract 1 EACH capsule 1 ea PO BID RF: 0 etodolac 400 mg Tablet Extended Release 24 Hr 400 mg PO DAILY RF: 0 methylprednisolone [Medrol (Elmo)] 4 mg Tablets,Dose Pack 4 mg PO RF: 0 albuterol sulfate [ProAir HFA] 90 mcg/actuation Hfa Aerosol Inhaler 2 puff INHALATION TID PRN (Reason: Shortness Of Breath Or Wheezing) RF: 0 budesonide-formoterol [Symbicort] 160-4.5 mcg/actuation Hfa Aerosol Inhaler 2 puff INHALATION BID RF: 0 amoxicillin-pot clavulanate [Augmentin] 875-125 mg tablet 1 tab PO BID 10 Days Qty: 20 RF: 0 Primary Care Provider: Orquidea Cortes NP Referrals: Orquidea Cortes NP, [facility] [Primary Care Provider] - Disposition Disposition: Home, Self Care
[2021-01-27] MEDS: Ketorolac 15 MG/ML Vial IM (15:49)
[2021-01-27 16:20] VITALS: BP 144/83; PULSE 72; O2SAT 96
== END 2021-01-27 16:21 | disposition home or self-care (01) ==
PROVIDERS: Emergency Provider Student in an Organized Health Care Education/Training Program; PCP Nurse Practitioner
DX: S76.012A Strain of muscle, fascia and tendon of left hip, initial encounter (principal); X58.XXXA Exposure to other specified factors, initial encounter; Y93.9 Activity, unspecified; Y92.9 Unspecified place or not applicable; Y99.9 Unspecified external cause status; I10 Essential (primary) hypertension; Z79.82 Long term (current) use of aspirin; Z79.899 Other long term (current) drug therapy
CPT/HCPCS: 73502; 96372; 99283

== ENCOUNTER 2021-04-29 14:43 | Outpatient (CLI) | payer MEDICARE, SELFPAY ==
--- NOTE | 2021-04-29 14:46 | BI_ITS ---
MAMMOGRAPHY - BILATERAL SCREENING REASON FOR EXAM: Female, 75 years old. Routine annual screening examination. PERTINENT HISTORY: Grandmother with breast cancer. TECHNIQUE: Digital bilateral breast mitchel (3D mammographic acquisition) in the CC and MLO projections. 2-D mediolateral oblique (MLO) and craniocaudad (CC) views of both breasts were obtained. CAD: Full Field Digital Mammography with Computer Added Detection was performed. COMPARISON: Comparison is made with prior study dated 04/05/2020 and 04/04/2019. FINDINGS: Breast Composition: The breasts are almost entirely fatty. There are no dominant masses or suspicious calcifications. Stable small benign-appearing bilateral axillary lymph nodes. No other significant abnormalities are identified. There has been no significant change since the prior study. BI/SCRN MAMM (CAD)W/MITCHEL BILAT IMPRESSION: Stable bilateral screening mammogram. Yearly follow-up mammogram recommended. (A) ASSESSMENT CATEGORY: BIRADS Category 2: Benign. A letter regarding these results will be sent to the patient by the facility within 30 days. Approximately 10% of breast cancers are not detected by mammography. A normal mammogram should not delay biopsy of a clinically suspicious abnormality. [id number] Electronically Signed: Yon Terry MD at 15:41 EST , Service support ,
== END 2021-04-29 23:59 | disposition short-term general hospital (02) ==
LOC: OPBI 14:43
PROVIDERS: PCP Nurse Practitioner; Referring Provider Nurse Practitioner; Visit Provider Nurse Practitioner
DX: Z12.31 Encounter for screening mammogram for malignant neoplasm of breast (principal); Z80.3 Family history of malignant neoplasm of breast
CPT/HCPCS: 77063; 77067

== ENCOUNTER 2021-07-23 08:35 | Outpatient (CLI) | payer MEDICARE, SELFPAY ==
--- NOTE | 2021-07-23 08:43 | CDU_ITS ---
Reason For Study: Dizziness Rt. Velocities/BP Lt. Velocities/BP Prox CCA 79.9/13.4 cm/sec. Prox CCA 108.3/13.3 cm/sec. Mid CCA 83.9/14.7 cm/sec. Mid CCA 79.1/13.3 cm/sec. Dist CCA 83.9/16 cm/sec. Dist CCA 79.1/15.2 cm/sec. Prox ICA 70.8/10.8 cm/sec. Prox ICA 74.1/17.6 cm/sec. Mid ICA 66.9/20 cm/sec. Mid ICA 60.5/18.8 cm/sec. Dist ICA 86.5/22.6 cm/sec. Dist ICA 54.4/15.1 cm/sec. Rt. ICA/CCA = 1.03. Lt. ICA/CCA = 0.94. Prox ECA 85.2/6.9 cm/sec. Prox ECA 84.6/9.7 cm/sec. Rt. Vert. 63/14.7 cm/sec. Lt. Vert. 40.9/11.4 cm/sec. Right Extracranial There is intimal thickening but no significant atherosclerotic plaque noted in the right common carotid artery. There is intimal thickening but no significant atherosclerotic plaque noted in the right internal carotid artery. There is intimal thickening but no significant atherosclerotic plaque noted in the right external carotid artery. Antegrade flow is noted in the right vertebral artery. Left Extracranial There is intimal thickening but no significant atherosclerotic plaque noted in the left common carotid artery. There is intimal thickening but no significant atherosclerotic plaque noted in the left internal carotid artery. There is intimal thickening but no significant atherosclerotic plaque noted in the left external carotid artery. Antegrade flow is noted in the left vertebral artery. Procedure Carotid Duplex [id number]. This is a Carotid Duplex examination using B-mode, color flow and specral Doppler. Exam performed in department. VL/Carotid Duplex Ultrasound Interpretation Summary No significant atherosclerotic plaque or stenosis noted in the internal carotid arteries bilaterally. Flow within the vertebral arteries is antegrade bilaterally. Ordering Physician: Orquidea Cortes Referring Physician: Orquidea Cortes Performed By: Renita Sanchez RVT
--- NOTE | 2021-07-24 09:51 | PFT ---
INTRODUCTION: The patient is a 75-year-old female that presents for pulmonary function studies secondary to a diagnosis of shortness of breath. Respiratory therapy reported good patient effort. Bronchodilators were used during testing. INTERPRETATION: Forced expiration spirometry demonstrates the presence of a mild large airways obstructive ventilatory defect. There was a significant response to aerosolized bronchodilators. Spirograms are of good quality and plateau normally. Body plethysmography was performed and revealed an elevated RV to 155% of predicted, indicative of underlying air trapping. Diffusing capacity by single breath CO is within normal limits. IMPRESSION: Partially reversible mild large airways obstructive ventilatory defect with associated air trapping.
== END 2021-07-23 23:59 | disposition home or self-care (01) ==
LOC: PSN 08:36
PROVIDERS: PCP Nurse Practitioner; Visit Provider Nurse Practitioner
DX: R06.02 Shortness of breath (principal); R42 Dizziness and giddiness
CPT/HCPCS: 93880; 94060; 94726; 94729

== ENCOUNTER → 2021-08-26 | Outpatient (CLI) | payer MEDICARE, SELFPAY ==
--- NOTE | 2021-08-26 11:37 | STRESSREP ---
Stress Test Report Pharmacologic myocardial perfusion stress test. 76-year-old lady with a history of dyspnea on exertion. Stress protocol: Resting EKG demonstrates normal sinus rhythm with a rate of 60 bpm normal intervals are noted resting blood pressure is 142/84 mmHg. 0.4 mg of regadenoson was infused per usual protocol followed by Intravenous saline flush injection continuous EKG monitoring was performed. The maximum heart rate attained was 83 bpm which was 56% of max impact at heart rate the maximum workload was 1 metabolic equivalent. At rest there were no ST or T wave changes noted to suggest abnormal flow reserve and at peak infusion nonspecific ST changes were noted with did not meet the criteria for ischemia. No clinical angina was noted. The peak blood pressure is 142/84 mmHg. Myocardial perfusion protocol. 14.9 mCi of technetium 99m sestamibi was injected at rest. 0.4 mg of regadenoson was infused per usual protocol. At peak infusion 44.7 mCi of technetium 99m sestamibi was injected stress images were obtained stress and rest images were reconstructed and compared in the short axis vertical long and horizontal long axis. Gated images were also obtained. Perfusion SPECT analysis: Review of the stress images demonstrate normal uptake of tracer noted in all areas of the myocardium. The resting images demonstrate normal uptake of tracer noted in all areas of the myocardium. No areas of reversibility are noted to suggest ischemia no previous infarct is noted. Gated SPECT analysis: The gated ejection fraction is 66%. Conclusion: Normal pharmacologic myocardial perfusion stress test. Preserved ejection fraction.
== END | disposition home or self-care (01) ==
LOC: CVS 07:01
PROVIDERS: PCP Nurse Practitioner; Referring Provider Nurse Practitioner; Visit Provider Nurse Practitioner
DX: R06.02 Shortness of breath (principal)
CPT/HCPCS: 78452; 93017; A9500; A4216; J2785

== ENCOUNTER → 2022-04-30 | Outpatient (CLI) | payer MEDICARE, SELFPAY ==
--- NOTE | 2022-04-30 14:45 | BI_ITS ---
MAMMOGRAPHY - BILATERAL SCREENING REASON FOR EXAM: Female, 76 years old. Routine annual screening examination. PERTINENT HISTORY: Grandmother with breast cancer. TECHNIQUE: Digital bilateral breast mitchel (3D mammographic acquisition) in the CC and MLO projections. 2-D mediolateral oblique (MLO) and craniocaudad (CC) views of both breasts were obtained. CAD: Full Field Digital Mammography with Computer Added Detection was performed. COMPARISON: Comparison is made with prior study of 04/29/2021 and 04/05/2020. FINDINGS: Breast Composition: The breasts are almost entirely fatty. There are no dominant masses or suspicious calcifications. Stable benign-appearing bilateral axillary lymph. No other significant abnormalities are identified. There has been no significant change since the prior study. BI/SCRN MAMM (CAD)W/MITCHEL BILAT IMPRESSION: Stable bilateral screening mammogram. Yearly follow-up mammogram recommended. (A) ASSESSMENT CATEGORY: BIRADS Category 2: Benign. A letter regarding these results will be sent to the patient by the facility within 30 days. Approximately 10% of breast cancers are not detected by mammography. A normal mammogram should not delay biopsy of a clinically suspicious abnormality. [id number] Electronically Signed: Yon Terry MD at 15:38 EST ,
== END | disposition home or self-care (01) ==
LOC: OPBI 14:44
PROVIDERS: PCP Nurse Practitioner; Visit Provider Nurse Practitioner Family
DX: Z12.31 Encounter for screening mammogram for malignant neoplasm of breast (principal)
CPT/HCPCS: 77063; 77067

== ENCOUNTER → 2022-08-07 | Outpatient (CLI) | payer MEDICARE, SELFPAY ==
--- NOTE | 2022-08-08 10:39 | PFT ---
INTRODUCTION: The patient is a 76-year-old female that presents for pulmonary function studies secondary to a diagnosis of COPD. Respiratory therapy reported good patient effort. Bronchodilators were used during testing. INTERPRETATION: Forced expiration spirometry demonstrates the presence of a mild large airways obstructive ventilatory defect. There was no significant response to aerosolized bronchodilators. Spirograms are of good quality and plateau gradually. Body plethysmography was performed and revealed an elevated RV to 154% of predicted, indicative of underlying air trapping. Diffusing capacity by single breath CO is within normal limits. IMPRESSION: Mild large airways obstructive ventilatory defect with associated air trapping and preserved diffusing capacity.
== END | disposition home or self-care (01) ==
LOC: PSN 11:56
PROVIDERS: PCP Nurse Practitioner Family; Referring Provider Nurse Practitioner Family; Visit Provider Nurse Practitioner Family
DX: J44.9 Chronic obstructive pulmonary disease, unspecified (principal)
CPT/HCPCS: 94060; 94726; 94729

== ENCOUNTER 2023-02-23 05:54 | Day surgery (SDC) | payer MEDICARE, SELFPAY ==
--- NOTE | 2023-02-22 23:28 | HP.PCM_ITS ---
History and Physical Date of Admission: 02/23/23 HISTORY OF PRESENT ILLNESS 77 year old woman presents with a soft tissue mass left posterior thigh that has been increasing in size over the last several months. There is discomfort when she bumps it. She has had a mass in this area for several years, but in the past year it has increased in size with overlying discoloration of the skin. She denies fever. She denies trauma. She denies recent infection. Patient has diabetes mellitus, and her latest HgbA1c from 12/12/22 was 5.9. For elective surgery, the HgbA1c needs to be less than 8. PAST MEDICAL HISTORY Arthritis Asthma Bone fracture COPD (chronic obstructive pulmonary disease) Diabetes Dysesthesia Gallstones Hearing problem Hiatal hernia High cholesterol Hypertension Mass of left thigh Non-smoker PAST SURGICAL HISTORY H/O total knee replacement H/O tubal ligation History of hysteroscopy S/P appendectomy S/P cholecystectomy ALLERGIES adhesive tape Zjambqw-VVJ-JtI Reductase Inhibitor [Zvibigq-Wcd-Wxs Reductase Inhibitor] MEDICATIONS acetaminophen amlodipine enalapril maleate fluticasone propionate actuation nasal spray lorazepam omeprazole cholecalciferol (vitamin D3) aspirin turmeric-turmeric root extract albuterol sulfate actuation aerosol inhaler (ProAir HFA) budesonide-formoterol HFA actuation aerosol inhaler (Symbicort) etodolac methylprednisolone (Medrol (Elmo)) jqxbkqfrowr-czfphft-oztpan (Trelegy Ellipta) meloxicam omega 4-jic-mql-fish oil zinc sulfate-vitamin C FAMILY HISTORY Father -Hypertension, Heart disease, CVA (cerebral vascular accident) Mother - Raynauds disease, Scleroderma, Arthritis SOCIAL HISTORY Smoking Status: Never smoker alcohol intake: never substance use type: does not use REVIEW OF SYSTEMS General - Denies fever, fatigue, and weight loss. Eyes - Denies cataracts and glaucoma. ENT - Denies nasal congestion and sore throat. Endocrine - Denies excessive thirst and urination. Skin - Denies skin cancer. Has an enlarging soft tissue mass left posterior thigh. Musculoskeletal - Has joint pain and back pain. Denies joint stiffness, weakness of muscles and joints, and arthritis. Neuro - Denies headaches. Cardiovascular - Denies chest pain, fatigue, and shortness of breath with e xertion. Psych - Denies anxiety and depression. Respiratory - Denies chronic cough. Has shortness of breath and COPD. Gastrointestinal - Denies nausea, vomiting, diarrhea, and constipation. Hematologic - Denies abnormal bruising and bleeding. Genitourinary - Denies hematuria and urinary frequency. PHYSICAL EXAMINATION General - Alert and Oriented. HEENT - PERRL. EOMI. Throat is clear. No suspicious lesions noted. Neck - Supple and nontender. No cervical adenopathy. No suspicious lesions noted. Lungs - Clear to auscultation. Heart - Regular rate and rhythm. Abdomen - Soft and nondistended. Extremities - FROM. No axillary adenopathy. Radial pulses are palpable. No inguinal adenopathy. Dorsalis pedis pulses are palpable. On the left posterior thigh is a soft tissue mass that measures 2 cm. It is mobile. Somewhat adherent to the overlying skin which shows some discoloration. No ulceration. Slight tenderness to palpation. No clinical evidence of infection at this timer. Neuro - CN II-XII grossly intact. Psych - Normal mood and affect. ASSESSMENT 1. Painful soft tissue mass left posterior thigh. 2. Dysesthesia. 3. Diabetes mellitus with HgbA1c of 5.9 from 12/12/22. PLAN Medical records reviewed. Labs reviewed. Her HgbA1c from 12/12/22 was 5.9. For elective surgery, the HgbA1c needs to be less than 8. Patient has a soft tissue mass left posterior thigh that has been increasing in size over the last several months and has become more raised in configuration. There is some discoloration of the overlying skin probably from pressure. There is no clinical evidence of infection at this time. Recommend excision of this mass now that there is no active infection at this time. If we wait until he develops another infection, we can still excise the infected cyst but because of the infection, the wound cannot be closed initially. Would proceed with wound care with the VAC. Some of the overlying discolored skin may need to be excised as well in which case a local skin flap reconstruction would be necessary. Tissue that is removed at surgery will be sent to Pathology for analysis to rule out carcinoma. If pus is seen at surgery then a wound culture will be obtained. A positive culture will necessitate antibiotic therapy. Surgery will be done under general anesthesia on an outpatient basis. Patient was informed of the risks and complications of the procedure including alternatives to surgery. These were discussed with the patient personally. Patient voices understanding and wishes to proceed. Some of the risks and complications were included in a form from the [place] [employer]. Potential risks and complications included but not inclusive of bleeding, infection, seroma, hematoma, bruising, swelling, prolonged need for drains, loss of sensation to skin, partial or complete loss of skin flap and/or skin graft, wound breakdown, need for wound care, poor scarring, poor aesthetic outcome, intra operative cardiac or neurologic events, DVT, PE, and reaction to anesthesia. Assessment & Plan Assessment/Plan (1) Mass of left thigh: (2) Dysesthesia: (3) DM type 2, goal HbA1c < 7%:
[2023-02-23 06:35] VITALS: BP 127/78; PULSE 86; RESP 18; TEMP 36.9; O2SAT 100; BMI 42.9
[2023-02-23] MEDS: Lactated Ringers 1,000 ML 15 ML IV (06:46)
--- NOTE | 2023-02-23 07:30 | CYST_PTH ---
PATIENT: BRANDIN MAY LOC: [facility] [place] U#:[id number] AGE/SX: 77/F ROOM: RE02/23/[address]: Dr. Sandor Everett MD : 1945 BED: DIS: 02/23/2023 SPEC #: [id number] RECD: 02/23/23 10:11 STATUS: ANMOL ARELIS #: [id number] MUNA: 02/23/23 07:[address]: Sandor Everett DEPT: SURGICAL PATHOLOGY RECD BY: Zahida Ordonez ENTERED: 02/23/23 11:09 SP TYPE: Cyst OTHR DR: Isa Brizuela, KETURAH-Jeffrey Tissues: CYST Procedures: Surgery Specimen Level III HEADER OPERATION: Excision painful soft tissue mass left posterior thigh PRE-OP DIAGNOSIS: Mass of left thigh TISSUE SUBMITTED: Infected cyst, left posterior thigh MICROSCOPIC DIAGNOSIS left posterior thigh cyst, excision: Trichilemmal cyst. SJ: 02/24/2023 MICROSCOPIC DESCRIPTION Slides are reviewed. GROSS DESCRIPTION Received in fixative is one container labeled with the patient name and designated infected cyst left posterior thigh. The specimen consists of a piece of skin and underlying tissue measuring 3 x 2 x 1.5 cm. Sections reveal a cyst filled with sebum like material. Rubber Off sections are submitted in two cassettes. /SJ:cc 02/23/23 TC:5 CPT: 91505
[2023-02-23] MEDS: Cefazolin 3 GM in 0.9% Normal Saline (100mL Bag) 100 ML IV (07:55)
[2023-02-23] MEDS: Lidocaine 1% /Epi 1:100 (20ml) 20 ML Vial (08:35)
[2023-02-23] MEDS: Mupirocin Ointment 22gm Tube 1 APPLIC (08:50)
--- NOTE | 2023-02-23 09:06 | PCM.OPRPT ---
Problems Associated Problem List Diagnoses (1) Mass of left thigh: (2) Dysesthesia: (3) DM type 2, goal HbA1c < 7%: (4) Skin infection: Report of Operation Date of Procedure: 02/23/23 Pre-Operative Diagnosis: 1. 2 cm painful soft tissue mass left posterior thigh. 2. Dysesthesia. 3. Diabetes mellitus with HgbA1c of 5.9 from 12/12/22. Post-Operative Diagnosis: 1. 2.3 cm painful chronically infected soft tissue mass left posterior thigh. 2. Dysesthesia. 3. Skin infection. 4. Diabetes mellitus with HgbA1c of 5.9 from 12/12/22. Surgery/Procedure Performed:: Excision 2.3 cm painful chronically infected soft tissue mass left posterior thigh including overlying adherent skin with rhomboid transposition skin flap reconstruction (10.58 cm2). Description of Surgical Findings:: 77 year old woman presents with a soft tissue mass left posterior thigh that has been increasing in size over the last several months. There is discomfort when she bumps it. She has had a mass in this area for several years, but in the past year it has increased in size with overlying discoloration of the skin. She denies fever. She denies trauma. She denies recent infection. Patient has diabetes mellitus, and her latest HgbA1c from 12/12/22 was 5.9. For elective surgery, the HgbA1c needs to be less than 8. Patient was informed of the risks and complications of the procedure including alternatives to surgery. These were discussed with the patient personally. Patient voices understanding and wishes to proceed. Some of the risks and complications were included in a form from the [place] [employer]. Potential risks and complications included but not inclusive of bleeding, infection, seroma, hematoma, bruising, swelling, loss of sensation to skin, partial or complete loss of skin flap and/or skin graft, wound breakdown, need for wound care, poor scarring, poor aesthetic outcome, intra operative cardiac or neurologic events, DVT, PE, and reaction to anesthesia. Surgeon: Sandor Everett MD sandwich board carrier: Yakov Ruiz RNFA Type of Anesthesia: Local MAC (Xylocaine with epinephrine and IV sedation.) Anesthesiologist: Prashanth Souza MD and Carmen Argueta CRNA Specimen's removed: Painful chronically infected soft tissue mass left posterior thigh to Pathology and Microbiology. Drains: None. Estimated Blood Loss (mL): 5. Description of Procedure: Patient was taken to OR in supine position and was given IV sedation. She was then placed on her side to get exposure to this discolored soft tissue mass left posterior thigh. The left posterior thigh was prepped and draped in the usual fashion. SCD's were placed for DVT prophylaxis. Perioperative antibiotics were given intravenously. The was infiltrated with xylocaine and epinephrine. After waiting 5 minutes for the anesthetic to take effect, I made an incision down to the subcutaneous tissue to expose the mass. It is larger than expected about 2.3 cm. While I was dissecting around this mass, I made an incision into the mass and pus was expressed. Besides sending this mass to Pathology for analysis to rule out carcinoma, I also sent some tissue to Microbiology for culture. The wound was irrigated with saline until the wound was clean. The mass was adherent to the overlying skin so it was also sent with the mass to Pathology. The skin excision was a rhomboid shape. I designed a rhomboid flap adjacent to the wound. Incisions were made and the skin flap was elevated on a subcutaneous pedicle. It was easily transposed into the wound with minimal tension and minimal distortion. The wound was irrigated with saline. Hemostasis was obtained with electrocautery. The incisions were closed in a layered fashion with 3-0 Monocryl for the deep dermis and subcutaneous tissue. The skin was approximated with 4-0 Prolene. Antibiotic ointment was applied to the suture line followed by 4x4 gauze compression dressing. The size of the wound is 2.3 x 2.3 cm or 5.29 cm2 and the size of the flap needed to close the wound defect is 2.3 x 2.3 cm or 5.29cm2 for a total of 10.58 cm2. Patient tolerated the procedure well and was sent to PACU in satisfactory condition. Patient will be sent home on antibiotics and pain medication. Patient will followup in a week for a wound check and for discussion of the pathology report and microbiology report. A positive culture will necessitate antibiotic therapy. I will remove the sutures in 2 weeks. Keep left leg elevated when sitting. Try to minimize standing as swelling can occur and may lead to wound separation. Grafts/Implants Used: None. Procedure Start Time: 08:34 Procedure Stop Time: 09:03 Complications None. Admit VTE Documentation VTE Present on Admission: No VTE Mechan Device Prophylaxis: SCD's VTE Pharm Prophylaxis ordered?: No Addendum Addendum: Surgery Charges CPT - 04694 D-10 - R22.42, R20.8, L08.9, E11.9 89956 R22.42, R20.8, L08.9, E11.9
[2023-02-23 09:10] VITALS: BP 120/68; BP 127/78; PULSE 65; RESP 16; TEMP 36.6; O2SAT 95
[2023-02-23 09:15] VITALS: BP 125/81; BP 127/78; PULSE 68; RESP 18; O2SAT 96
[2023-02-23 09:20] VITALS: BP 126/84; BP 127/78; PULSE 69; RESP 18; O2SAT 96
[2023-02-23 09:30] VITALS: BP 127/78; BP 142/79; PULSE 68; RESP 16; TEMP 36.8; O2SAT 95
--- NOTE | 2023-02-23 09:35 | PCM.DC ---
Discharge Instructions Diet Discharge Diet: Carb Control Diet and - (encourage nutritional supplementation with protein to help the healing process.) Activity Discharge Activity: May Not Drive (if taking narcotics medication), May Shower (in 2 days) and - (elevate left leg when sitting.) May shower in (days): 2 May resume sexual activity in: No Restrictions Weight Bearing Status: Weight bearing as tolerated Keep extremity elevated above heart level: Left Leg Dressing / Incision Call your doctor if your incision/area has: Continuous Slow Oozing, Sudden Increased Bleeding, Increased Pain/ Swelling, Increased Redness, Foul Smelling Discharge and Swelling at the incision site Call your doctor if you observe: Fever of 101 or Higher, Coldness, Increased Pain, Shortness of breath, Chest pain, Calf discomfort and Uncontrolled pain Suture Line Care: - (after operative dressing removed in 2 days, apply antibiotic ointment to suture line daily.) Change Dressing in: 2 days (can replace gauze over the incision or a large bandaid after showering in 2 days.) Cleanse incision/area with: Keep Dressing Clean & Dry (until operative dressing removed in 2 days. Then can shower.) and - (may get the suture line wet in the shower in two days.) Follow Up Care Please Follow Up With: Sandor Everett MD When: one week. call [phone] for appt. Test Results: Test results from this visit will be discussed in further detail at your follow-up appointment, if applicable. Discharge Plan Admission Primary Reason for Your Visit: excision chronically infected soft tissue mass left posterior thigh Attending Provider: Sandor Everett Primary Care Provider: Isa Brizuela Discharge Orders/Prescriptions Prescriptions: New doxycycline hyclate 100 mg capsule 100 mg PO BID Qty: 20 0RF L.acidoph,saliva-B.bif-S.therm [Acidophilus Probiotic Blend] 175 mg capsule 1 cap PO DAILY Qty: 30 0RF oxycodone-acetaminophen [Percocet] 5-325 mg tablet 1 tab PO Q6H PRN (Reason: pain (scale score 7-10)) 7 Days Qty: 28 0RF Rx Instructions: 28 tabs (twenty-eight) Continued zinc sulfate-vitamin C 200-100 mg tablet 1 tab PO DAILY Trelegy Ellipta 100-62.5-25 mcg blister with device 1 inh inhalation DAILY meloxicam 7.5 mg tablet 7.5 mg PO DAILY enalapril maleate 20 MG tablet 20 mg PO BID Patient Comments: blood pressure amlodipine 5 MG tablet 5 mg PO DAILY Patient Comments: blood pressure acetaminophen 500 MG tablet 500 - 1,000 mg PO Q6H PRN PRN (Reason: Mild/Moderate Pain) Patient Comments: mild pain omeprazole 20 MG capsule 20 mg PO DAILY Patient Comments: gerd fluticasone propionate 1 SPRAY spray,suspension 2 spray NASAL DAILY PRN (Reason: Allergies) Patient Comments: allergies cholecalciferol (vitamin D3) 2,000 UNIT capsule 2,000 unit PO DAILY turmeric-turmeric root extract 1 EACH capsule 1 ea PO DAILY albuterol sulfate [ProAir HFA] 90 mcg/actuation Hfa Aerosol Inhaler 2 puff INHALATION TID PRN (Reason: Shortness Of Breath Or Wheezing) loratadine [Allergy Relief (loratadine)] 10 mg tablet 10 mg PO DAILY PreserVision AREDS 4,296 mcg-226 mg-90 mg capsule 1 cap PO DAILY ascorbic acid (vitamin C) [C-500] 500 mg tablet extended release 500 mg PO DAILY omega-3 fatty acids Capsule 1,000 mg PO DAILY Held aspirin 81 MG tablet 81 mg PO MOWEFR Hold Instructions: Resume on 02/27/23. Referrals / Follow Up: Isa Brizuela NP-C [Primary Care Provider] - Disposition Disposition (needs filled in before D/C Order can be placed): Home, Self Care
[2023-02-23 09:57] VITALS: BP 127/78
== END 2023-02-23 10:13 | disposition home or self-care (01) ==
LOC: SDC 05:54 → AC 05:58
PROVIDERS: PCP Nurse Practitioner Family; Referring Provider Surgery; Visit Provider Surgery
PROC: (CPT 27327; principal; 2023-02-23 07:15)
DX: L72.12 Trichodermal cyst (principal); J44.9 Chronic obstructive pulmonary disease, unspecified; E11.9 Type 2 diabetes mellitus without complications; M79.652 Pain in left thigh; R20.8 Other disturbances of skin sensation; I10 Essential (primary) hypertension; K21.9 Gastro-esophageal reflux disease without esophagitis; Z79.82 Long term (current) use of aspirin; Z79.899 Other long term (current) drug therapy
CPT/HCPCS: 27327; 87070; 87075; 87102; 87205; 87206; 88304; J7120; J2405

== ENCOUNTER → 2023-05-19 | Outpatient (CLI) | payer MEDICARE, SELFPAY ==
--- NOTE | 2023-05-19 10:38 | BI_ITS ---
MAMMOGRAPHY - BILATERAL SCREENING REASON FOR EXAM: Female, 77 years old. Routine annual screening examination. PERTINENT HISTORY: Grandmother with breast cancer. TECHNIQUE: Digital bilateral breast mitchel (3D mammographic acquisition) in the CC and MLO projections. 2-D mediolateral oblique (MLO) and craniocaudad (CC) views of both breasts were obtained. CAD: Full Field Digital Mammography with Computer Added Detection was performed. COMPARISON: Comparison is made with prior study of April 30, 2022 and April 29, 2021. FINDINGS: Breast Composition: The breasts are almost entirely fatty. There are no dominant masses or suspicious calcifications. No other significant abnormalities are identified. There has been no significant change since the prior study. BI/SCRN MAMM (CAD)W/MITCHEL BILAT IMPRESSION: Stable bilateral screening mammogram. Yearly follow-up mammogram recommended. (A) ASSESSMENT CATEGORY: BIRADS Category 1: Negative. A letter regarding these results will be sent to the patient by the facility within 30 days. Approximately 10% of breast cancers are not detected by mammography. A normal mammogram should not delay biopsy of a clinically suspicious abnormality. [id number] Electronically Signed: Yon Terry MD at 14:14 EST ,
== END | disposition home or self-care (01) ==
LOC: OPBI 10:38
PROVIDERS: PCP Nurse Practitioner Family; Referring Provider Nurse Practitioner Family; Visit Provider Nurse Practitioner Family
DX: Z12.31 Encounter for screening mammogram for malignant neoplasm of breast (principal)
CPT/HCPCS: 77063; 77067

== ENCOUNTER → 2023-12-22 | Outpatient (CLI) | payer MEDICARE, SELFPAY ==
--- NOTE | 2023-12-22 09:35 | BD_ITS ---
STUDY: DUAL ENERGY X-RAY ABSORPTIOMETRY / DXA REASON FOR EXAM: Female, 78 years old. [id number] -- Postmenopausal status TECHNIQUE: Bone Mineral Density (BMD) measurements of lumbar spine and bilateral hips were obtained. COMPARISON: Comparison is made with prior study April 05, 2020. FINDINGS: Lumbar Spine (L1-L4): g/cm2 (1.082) / T-score (0.6) / Z-score (3.0) Findings are suggestive of normal bone density with a low fracture risk. Left Femur Total: g/cm2 (0.894) / T-score (-0.4) / Z-score (1.5) Left Femoral Neck: g/cm2 (0.701) / T-score (-1.3) / Z-score (0.8) Right Femur Total: g/cm2 (0.885) / T-score (-0.5) / Z-score (1.4) Right Femoral Neck: g/cm2 (0.806) / T-score (-0.4) / Z-score (1.8) The T-Scores on the most recent prior examination were: Lumbar Spine (L1-L4): There has been worsening of bone density since the previous examination. Left Femur Total: which represents a worsening of 4.8%. Right Femur Total: which represents a worsening of 5.1%. BD/Dexa Bone Density Study IMPRESSION: The patient is considered osteopenic as outlined below according to World Saurav Organization (WHO) criteria with a low fracture risk. There has been worsening of bone density since the previous examination. Reference Information: The T-score is the number of standard deviations above or below the standard which is normal for young adults at their peak bone mineral density. The World Health Organization (WHO) interprets the T-scores as follows: Above -1 Normal bone density Between -1 and -2.5 Osteopenia Equal to / or below -2.5 Osteoporosis As a practical clinical guideline, osteopenia may be graded as follows: Mild -1 through -1.5 Moderate -1.6 through -2.0 Severe -2.1 through -2.4 The Z-score is the number of standard deviations above or below age-matched controls. A Z-score of less than -1.5 would be considered abnormal. References: 1. NIH Osteoporosis and Related Bone Diseases www osteo.org 2. International Society for Clinical Densitometry www iscd.org 3. National Osteoporosis Foundation www nof.org Electronically Signed: Yon Terry MD at 15:01 EDT ,
== END | disposition home or self-care (01) ==
LOC: OPBD 09:32
PROVIDERS: PCP Nurse Practitioner Family; Referring Provider Nurse Practitioner Family; Visit Provider Nurse Practitioner Family
DX: Z78.0 Asymptomatic menopausal state (principal)
CPT/HCPCS: 77080

== ENCOUNTER → 2024-01-05 | Outpatient (CLI) | payer MEDICARE, SELFPAY ==
--- NOTE | 2024-01-05 15:29 | US_ITS ---
STUDY: Localized superficial ultrasound of the scalp. HISTORY: Mass of the right parietal region. COMPARISON: none FINDINGS: In the area of clinical concern, ultrasound demonstrates a well-defined low echogenicity oval subcutaneous mass measuring 1.8 x 2.1 x 1.2 cm most consistent with epidermal inclusion cyst. US/Head/Neck Soft Tissue IMPRESSION: Probable 2.1 cm epidermal inclusion cyst. Electronically Signed: Maurisio Gusman MD at 17:37 EDT ,
== END | disposition home or self-care (01) ==
PROVIDERS: PCP Nurse Practitioner Family; Referring Provider Nurse Practitioner Family; Visit Provider Nurse Practitioner Family
DX: L72.9 Follicular cyst of the skin and subcutaneous tissue, unspecified (principal)
CPT/HCPCS: 76536

== ENCOUNTER 2024-01-20 07:13 | Day surgery (SDC) | payer MEDICARE, SELFPAY ==
[2024-01-20] VITALS (8 sets, daily range): BP systolic 111–138; BP diastolic 62–64; PULSE 67–72; RESP 16–18; TEMP 36.3–36.7; O2SAT 92–98; BMI 40.6
--- NOTE | 2024-01-20 06:36 | OP.PCM_ITS ---
Operative Report Date of Procedure: 01/20/24 Surgery/Procedure Date: 20 January 2024 Incision/Procedure Start Time: 9:53 AM Incision Close/Procedure End Time: 10:13 AM (20 MIN) PATIENT: Ashley Diaz SURGEON: Piero Espinoza MD PRE-OPERATIVE DIAGNOSIS: 2 scalp masses POST-OPERATIVE DIAGNOSIS: Same PROCEDURE PERFORMED: 1) right posterior scalp mass excision, 3 x 3 centimeters , 06603 (excision benign on scalp, 2.1-3 cm) 2) right parietal scalp mass excision, 1 x 1 centimeters , CPT 72450 (excision benign on scalp, 1.1-2cm) (59 modifier) 3) intermediate closure of scalp wounds, 5 centimeters total, CPT 12432 (intermediate closure) OPERATIVE FINDINGS: * The masses were consistent with epidermal inclusion cysts that were chronically infected (yellow material within the cyst wall. INDICATIONS: Patient is a 78-year-old female who has 2 scalp masses consistent with epidermal inclusion cyst that were imaged using ultrasound. Presents today for excision. OPERATIVE DETAILS: Patient was correctly identified in preoperative holding and I marked both of the masses on the scalp. The patient was in agreement with the sites that we were marking. She is taken back to the operating room where she was administered some sedation and then she was anesthetized with 20 cc of a 50-50 mixture of 1% lidocaine with 1 100,000 epinephrine and 0.25% bupivacaine 1-200,000. A timeout was performed and she was prepped and draped in sterile. Once the appropriate level of anesthesia was obtained, she was placed in the lateral decubitus position (left) with care taken to pad all bony prominences and put her upper extremity in a comfortable and safe position. A 15 blade scalpel was used to excise directly over the right parietal mass and tenotomy scissors was used to dissected around it and sent it off in 1 piece. Bovie electrocautery was used for hemostasis and the pocket was irrigated with copious amounts normal saline. The mass measured 1 by 1 centimeters. The right posterior scalp mass was removed in a similar fashion and sent to pathology as well, and this 1 measured 3 by 3 centimeters. This wound was also irrigated with copious amounts of normal saline. Both wounds were irrigated with 250 cc of Irricept and then saline as well. The wounds were then both closed with 2-0 PDS deep suture followed by fernando. This was an intermediate closure 5 centimeters. Bacitracin was applied and an ABD and burn net. The patient tolerated the procedure well and was taken to the PACU in stable condition. EBL: 10 Anesthesia: Sedation and local ASA: 2 IVF: 500 cc LR UOP: Unmeasured Transfusions: None Specimens: 2 separate scalp masses, 1 right posterior scalp 1 right parietal Preoperative antibiotics: 2 g Ancef IV POST-OPERATIVE PLAN: Follow-up in 1 week for wound check. Follow-up in 2 weeks for staple removal. Burn and ABD pads can come off tomorrow. She can shower tomorrow.
--- NOTE | 2024-01-20 06:46 | HP.PCM.SX_ITS ---
HPI - General HPI Narrative BRANDIN MAY, is a 78 F who presents with scalp masses. Current Encounter (DATE OF SURGERY H&P UPDATE): I saw and examined the patient this morning in pre-operative holding. We discussed risks and benefits of today's surgery and they would like to proceed. NO CHANGE in health history since last seen and evaluated. Ready to proceed with surgery. [facility] Medical History (Updated 01/14/24 @ 11:29 by Michele Patel) Cardiology follow-up encounter History of high cholesterol History of hypertension History of hearing problem History of exudative age-related macular degeneration History of gallstones History of COPD History of cataract History of environmental allergies Trichilemmal cyst Skin infection Other acute postprocedural pain Wears dentures Wears glasses Post-menopausal Back pain Injury of head and neck History of hiatal hernia Gastric reflux Shortness of breath on exertion History of pain when walking History of edema History of stress test History of irregular heartbeat Hx of sebaceous cyst DM type 2, goal HbA1c < 7% Dysesthesia Mass of left thigh High cholesterol Hearing problem Gallstones COPD (chronic obstructive pulmonary disease) Bone fracture Arthritis Allergies Hypertension Non-smoker Hiatal hernia Asthma Hypertension Diabetes Home Medications ?Medication ?Instructions ?Recorded ?Last Taken ?Type acetaminophen 500 mg tablet 500 - 1,000 mg PO Q6H PRN PRN 12/22/13 Unknown History Mild/Moderate Pain amlodipine 5 mg tablet 5 mg PO DAILY 12/22/13 02/23/23 History enalapril maleate 20 mg tablet 20 mg PO BID 12/22/13 02/23/23 History fluticasone propionate 50 2 spray NASAL DAILY PRN Allergies 12/22/13 Unknown History mcg/actuation nasal spray,suspension omeprazole 20 mg capsule,delayed 20 mg PO DAILY 12/22/13 02/23/23 History release cholecalciferol (vitamin D3) 50 2,000 unit PO DAILY 06/12/16 02/22/23 History mcg (2,000 unit) capsule aspirin 81 mg tablet,delayed 81 mg PO TUFR 10/15/17 01/08/24 History release turmeric 450 mg-turmeric root 1 ea PO DAILY 10/15/17 02/22/23 History extract 50 mg capsule ascorbic acid 100 mg-zinc sulfate 1 tab PO DAILY 12/25/22 02/22/23 History 200 mg tablet fluticasone fur. 100 mcg-umeclid 1 inh inhalation DAILY 12/25/22 02/23/23 History 62.5 mcg-vilant 25 mcg inhalat.powder (Trelegy Ellipta) ascorbic acid (vitamin C) 500 mg 500 mg PO DAILY 02/16/23 02/22/23 History tablet,extended release (C-500) loratadine 10 mg tablet (Allergy 10 mg PO DAILY 02/16/23 02/22/23 History Relief (loratadine)) omega-3 fatty acids 1,000 mg PO DAILY 02/16/23 02/22/23 History vitamins A,C,A-jkyd-dctvej 4,296 1 cap PO DAILY 02/16/23 02/22/23 History mcg-226 mg-90 mg capsule (PreserVision AREDS) calcium carbonate (Calcium 600) 600 mg PO DAILY 01/14/24 Unknown History cephalexin 500 mg capsule 500 mg PO Q8H 5 days #15 caps 01/20/24 Unknown Rx ondansetron 4 mg disintegrating 4 mg PO Q8H PRN nausea and 01/20/24 Unknown Rx tablet vomiting 5 days #10 tabs oxycodone 5 mg tablet 5 mg PO Q12H PRN pain 5 days #10 01/20/24 Unknown Rx tabs Allergy/AdvReac Type Severity Reaction Status Date / Time adhesive tape AdvReac REDNESS TO Verified 01/14/24 11:16 SKIN Enyulsy-GHT-GjU Reductase AdvReac Other Verified 01/14/24 11:16 Inhibitor (Ngklcra-Mxv-Omc Reductase Inhibitor) Family History Father Hypertension Heart disease CVA (cerebral vascular accident) Mother Raynauds disease Scleroderma Arthritis Surgical History (Updated 01/14/24 @ 11:29 by Michele Patel) History of cholecystectomy History of toe surgery History of appendectomy History of excision of mass Hx of tonsillectomy Hx of hammer toe correction Hx of repair of ear bone S/P appendectomy S/P cholecystectomy History of hysteroscopy H/O tubal ligation H/O total knee replacement Social History adopted: No household members: none housing: house number of children: 2 current occupational status: employed current occupation: [employer] Smoking Status: Never smoker alcohol intake: never substance use type: does not use seatbelt use: always do you feel safe at home: Yes additional social history: Does Take Aspirin Daily Does Take Ibuprofen As Needed Physical Exam Narrative Two scalp masses, marked in preop with patient in agreement Const oriented x3 and no apparent distress Resp normal respiratory effort Cardio regular rate Assessment & Plan Assessment/Plan (1) Epidermal inclusion cyst: PLAN: I talked the patient extensively about the risks of surgery, including bleeding, infection, damage to surrounding structures, surgical site dehiscence and wound formation, need for wound care, need for repeat operations, failure to obtain the desired result, DVT/PE, and the risks of anesthesia including . All of their questions were answered, and they agreed to proceed with surgery. She understands that they scan come back and that they can get infected post- operatively. She also understands she can get some alopecia in these areas but that the fernando should decrease this risk. INTERVAL H&P PLAN, DATE OF SURGERY: We will proceed with surgery today.
[2024-01-20] MEDS: Lactated Ringers 1,000 ML 15 ML IV (07:45)
--- NOTE | 2024-01-20 08:05 | PRE.ANES_ITS ---
ASA Classification* ASA Classification ASA Classification: 3 Assessment & Plan Anesthesia* Anesthesia Assessment Anesthesia Assessment: Discussed sedation and/or anesthesia options, risks, benefits, and alternatives with patient/parents/legal guardian/POA. Questions invited. The patient/parents/legal guardian/POA seems to understand and agrees to proceed with anesthesia plan. Reviewed the physical assessment, medical history, allergy history and patient home medications list prior to surgery/procedure/anesthetic and documented any changes. Performed airway and anesthesia risk assessments. Anesthesia Type Anesthesia Type: MAC (see written pre anesthesia record for full assessment) Anesthesia Focused Assessment* Temperature: 97.4 F Pulse Rate: 67 Blood Pressure: 138/64 Respiratory Rate: 16 Pulse Ox: 98 Airway Assessment Mouth opens: >3 cm Mallampati Score: II Focused Labs Anesthesia Preop lab: CBC WBC 10.3 K/mm3 (4.4-11.0) 09/20/20 06:42 RBC 4.08 M/mm3 (4.2-5.4) L 09/20/20 06:42 Hgb 12.0 g/dL (12.0-15.0) 09/20/20 06:42 Hct 38.9 % (37-47) 09/20/20 06:42 Plt Count 238 K/mm3 (150-450) 09/20/20 06:42 CHEMISTRY Potassium 3.5 mmol/L (3.5-5.1) 09/20/20 06:42 Sodium 144 mmol/L (136-145) 09/20/20 06:42 BUN 14 mg/dL (7-18) 09/20/20 06:42 Creatinine 0.76 mg/dL (0.55-1.02) 09/20/20 06:42 Glucose 123 mg/dL (74-106) H 09/20/20 06:42 POC Glucose 110 mg/dL (70-110) 09/21/20 11:38 TSH 1.99 uIU/mL (0.358-3.74) 09/21/17 23:59 COAG PT 13.8 SECONDS (11.7-14.9) 09/21/17 23:59 Pre-Assessment Diagnosis/Proposed Procedure Planned Operative Procedure(s): EXCISION SCALP CYST X2 Anesthesia History 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 When Was Last Pacemaker Check QUESTION #4 FULL TEXT: You/Your Family Experience fever (hyperthermia) with Anesthesia Last Oral Intake Last Oral intake: Last Oral Intake NPO since 06:00 01/20/24 07:48 Meds taken in AM with sips of Yes 01/20/24 07:48 water? Meds patient instructed to enalipril, amlodipine, 01/20/24 07:48 take am of surgery omeprazole PONV PONV - cylinder press operator apprentice: PONV - cylinder press operator apprentice Female Yes 01/14/24 11:21 HX of Motion Sickness No 01/14/24 11:21 HX of N/V After Surgery No 01/14/24 11:21 Non-Smoker Yes 01/14/24 11:21 Duration of Surgery greater Yes 01/14/24 11:21 than 60 minutes Number of Risk Factors 3 01/14/24 11:21 PONV Score Moderate Risk 01/14/24 11:21 Height & Weight Height & Weight: Anesthesia: Height & Weight Height 5 ft 3 in 01/20/24 07:48 Weight: 104.1 kg 01/20/24 07:48 Body Mass Index (BMI) 40.6 01/20/24 07:48 Respiratory Assessment Respiratory Assessment - cylinder press operator apprentice: Respiratory Tract Infection Hx - cylinder press operator apprentice Hx Respiratory Tract Infection No 01/14/24 11:21 STOP Sleep Apnea STOP Sleep Apnea - cylinder press operator apprentice: STOP Sleep Apnea - cylinder press operator apprentice Hx Hypertension Yes: CONTROLLED WITH MEDS 01/14/24 11:21 Hx Sleep Apnea No 01/14/24 11:21 CPAP No 03/02/23 10:14 BIPAP No 03/02/23 10:14 Do you snore loudly (louder No 01/14/24 11:21 than talking or can be heard Do you often feel tired/ No 01/14/24 11:21 fatigued/ sleepy during daytime? Has anyone observed you stop No 01/14/24 11:21 breathing during sleep? STOP Results Negative 01/14/24 11:21 QUESTION #5 FULL TEXT : Do you snore loudly (louder than talking or can be heard through closed doors)? 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 Specify any problems Hx of Preganancy in last 3 No 01/14/24 11:21 Months Nurse Filling Out Transfusion [email or web address] 01/14/24 11:21 & Questions: Date: 01/14/24 01/14/24 11:21 Time: 11:24 01/14/24 11:21 Patient unable to answer at this time (ie. confused, unrespo /Reproduction History /Reproductive History - cylinder press operator apprentice: /Reproductive Hx- cylinder press operator apprentice Hx Now Gestational Age (in weeks): EDC: Hx Hx Para Hx Section SAB No 03/02/23 10:14 Active Medications Active Medications: Current Medications Generic Name Dose Route Start Last Admin Trade Name Freq PRN Reason Stop Dose Admin Cefazolin Sodium 2 gm/ Sodium 110 mls @ 150 mls/hr 01/20/24 08:55 Chloride IV 01/20/24 09:38 PREOP ONE Lactated Ringer's 1,000 mls @ 15 mls/hr 01/20/24 07:45 01/20/24 07:45 IV 15 mls/hr .Q48H MAUREEN Administration PFSH Medical History Cardiology follow-up encounter History of high cholesterol History of hypertension History of hearing problem History of exudative age-related macular degeneration History of gallstones History of COPD History of cataract History of environmental allergies Trichilemmal cyst Skin infection Other acute postprocedural pain Wears dentures Wears glasses Post-menopausal Back pain Injury of head and neck History of hiatal hernia Gastric reflux Shortness of breath on exertion History of pain when walking History of edema History of stress test History of irregular heartbeat Hx of sebaceous cyst DM type 2, goal HbA1c < 7% Dysesthesia Mass of left thigh High cholesterol Hearing problem Gallstones COPD (chronic obstructive pulmonary disease) Bone fracture Arthritis Allergies Hypertension Non-smoker Hiatal hernia Asthma Hypertension Diabetes Home Medications ?Medication ?Instructions ?Recorded ?Last Taken ?Type acetaminophen 500 mg tablet 500 - 1,000 mg PO Q6H PRN PRN 12/22/13 Unknown History Mild/Moderate Pain amlodipine 5 mg tablet 5 mg PO DAILY 12/22/13 02/23/23 History enalapril maleate 20 mg tablet 20 mg PO BID 12/22/13 02/23/23 History fluticasone propionate 50 2 spray NASAL DAILY PRN Allergies 12/22/13 Unknown History mcg/actuation nasal spray,suspension omeprazole 20 mg capsule,delayed 20 mg PO DAILY 12/22/13 02/23/23 History release cholecalciferol (vitamin D3) 50 2,000 unit PO DAILY 06/12/16 02/22/23 History mcg (2,000 unit) capsule aspirin 81 mg tablet,delayed 81 mg PO TUFR 10/15/17 01/08/24 History release turmeric 450 mg-turmeric root 1 ea PO DAILY 10/15/17 02/22/23 History extract 50 mg capsule ascorbic acid 100 mg-zinc sulfate 1 tab PO DAILY 12/25/22 02/22/23 History 200 mg tablet fluticasone fur. 100 mcg-umeclid 1 inh inhalation DAILY 12/25/22 02/23/23 History 62.5 mcg-vilant 25 mcg inhalat.powder (Trelegy Ellipta) ascorbic acid (vitamin C) 500 mg 500 mg PO DAILY 02/16/23 02/22/23 History tablet,extended release (C-500) loratadine 10 mg tablet (Allergy 10 mg PO DAILY 02/16/23 02/22/23 History Relief (loratadine)) omega-3 fatty acids 1,000 mg PO DAILY 02/16/23 02/22/23 History vitamins A,C,X-qkfu-ehqpns 4,296 1 cap PO DAILY 02/16/23 02/22/23 History mcg-226 mg-90 mg capsule (PreserVision AREDS) calcium carbonate (Calcium 600) 600 mg PO DAILY 01/14/24 Unknown History cephalexin 500 mg capsule 500 mg PO Q8H 5 days #15 caps 01/20/24 Unknown Rx ondansetron 4 mg disintegrating 4 mg PO Q8H PRN nausea and 01/20/24 Unknown Rx tablet vomiting 5 days #10 tabs oxycodone 5 mg tablet 5 mg PO Q12H PRN pain 5 days #10 01/20/24 Unknown Rx tabs Allergy/AdvReac Type Severity Reaction Status Date / Time adhesive tape AdvReac REDNESS TO Verified 01/14/24 11:16 SKIN Aspqzdz-LRR-GsP Reductase AdvReac Other Verified 01/14/24 11:16 Inhibitor (Vetrlzt-Pvy-Has Reductase Inhibitor) Family History Father Hypertension Heart disease CVA (cerebral vascular accident) Mother Raynauds disease Scleroderma Arthritis Surgical History History of cholecystectomy History of toe surgery History of appendectomy History of excision of mass Hx of tonsillectomy Hx of hammer toe correction Hx of repair of ear bone S/P appendectomy S/P cholecystectomy History of hysteroscopy H/O tubal ligation H/O total knee replacement Social History adopted: No household members: none housing: house number of children: 2 current occupational status: employed current occupation: [employer] Smoking Status: Never smoker alcohol intake: never substance use type: does not use seatbelt use: always do you feel safe at home: Yes additional social history: Does Take Aspirin Daily Does Take Ibuprofen As Needed Review of Systems (Anesthesia) ROS Narrative System reviewed and no additional complaints, except as documented.
--- NOTE | 2024-01-20 08:55 | CYST_PTH ---
PATIENT: BRANDIN MAY LOC: [facility] [place] U#:[id number] AGE/SX: 78/F ROOM: RE01/20/[address]: Dr. Piero Espinoza MD : 1945 BED: DIS: 01/20/2024 SPEC #: [id number] RECD: 01/20/24 13:13 STATUS: ANMOL ARELIS #: [id number] MUNA: 01/20/24 08:[address]: Piero Espinoza DEPT: SURGICAL PATHOLOGY RECD BY: Damian Jimenez ENTERED: 01/20/24 14:01 SP TYPE: Cyst OTHR DR: Isa Brizuela, MANNEQUIN MOLD MAKER-C Tissues: A - CYST B - CYST Procedures: Surgery Specimen Level III HEADER OPERATION: Excision right scalp cysts x2 PRE-OP DIAGNOSIS: Epidermal inclusion cyst TISSUE SUBMITTED: A- Posterior scalp cyst, B- Right parietal scalp cyst MICROSCOPIC DIAGNOSIS A. Posterior scalp cyst, excision: Trichilemmal cyst with focal calcifications. B. Right parietal scalp cyst, excision: Trichilemmal cyst with focal calcifications. 01/21/2024 MICROSCOPIC DESCRIPTION Slides are reviewed. GROSS DESCRIPTION A. Received in fixative is one container labeled with the patient's name and designated Posterior scalp cyst. The specimen consists of a collapsed cyst measuring 2.0 x 1.8 x 0.5cm. The cyst is filled with manzo-brown material. Also present in the container is a piece of manzo soft tissue measuring 1.5 x 0.5 x 0.1cm. The entire specimen is submitted in one cassette. B. Received in fixative is one container labeled with the patient's name and designated Right parietal scalp cyst. The specimen consists of an irregular piece of manzo indurated tissue measuring 1.0 x 1.0 x 0.5cm. The specimen is bisected and reveals a cyst filled with manzo-brown material. The entire specimen is submitted in one cassette. 01/20/2024 TC:5 CPT:[id number]
[2024-01-20] MEDS: Cefazolin 2 GM in 0.9% Normal Saline (100mL Bag) 100 ML IV (09:31)
[2024-01-20] MEDS: Bupiv/Epi 0.25% 30 ML Vial (10:03)
[2024-01-20] MEDS: Lidocaine 1% /Epi 1:100 (20ml) 20 ML Vial (10:04)
--- NOTE | 2024-01-20 10:31 | PCM.POST.ANE ---
Anesthesia: Postop Eval I Current Vital Signs Temperature: 97.8 F Pulse Rate: 69 Blood Pressure: 134/62 Respiratory Rate: 16 Pulse Ox: 95 Oxygen Delivery Method: Room Air Assessment Airway patent: Yes Spontaneous unlabored respirations: Yes Mental status: Awake and Calm nausea: No Vomiting: No Anesthesia Complication: No Fluid Hydration Crystalloid volume administer (ml): 500 Total IV fluid infused: 500 Progress Note Anesthesia document: Postop Eval 1 completed: Yes
--- NOTE | 2024-01-20 11:47 | POSTOPAN2_ITS ---
Anesthesia Postop Eval I Sum Postop Eval Completion status Anesthesia document: Postop Eval 1 completed: Yes Anesthesia Postop Eval I Summary Anesthesia Postop Eval I Summary: Anesthesia Postop Eval I: Assessment Summary Airway patent Yes 01/20/24 10:33 [email or web address] Spontaneous unlabored Yes 01/20/24 10:33 KETTLE HAND.[email or web address] respirations Mental status Awake,Calm 01/20/24 10:33 [email or web address] [email or web address] nausea No 01/20/24 10:33 KETTLE HAND.[email or web address] Vomiting No 01/20/24 10:33 [email or web address] HAND.[email or web address] Anesthesia Postop Eval I: Fluid Summary Crystalloid volume administer 500 01/20/24 10:33 [email or web address] HAND.[email or web address] (ml) Colloids volume administered ( ml) Blood Product volume administered (ml) Total IV fluid infused 500 01/20/24 10:33 [email or web address] HAND.[email or web address] Anesthesia Postop Eval I: Summary Notes Anesthesia Complication No 01/20/24 10:33 [email or web address] HAND.[email or web address] Anesthesia Complication Comment: Post-operative progress note Anesthesia: Postop Eval II Evaluation Mental status: Awake Pain Level: 0 nausea: No Vomiting: No
--- NOTE | 2024-01-20 11:47 | PCM.POSTANE2 ---
Anesthesia Postop Eval I Sum Postop Eval Completion status Anesthesia document: Postop Eval 1 completed: Yes Anesthesia Postop Eval I Summary Anesthesia Postop Eval I Summary: Anesthesia Postop Eval I: Assessment Summary Airway patent Yes 01/20/24 10:33 EIGHT ARM [email or web address].[email or web address] Spontaneous unlabored Yes 01/20/24 10:33 EIGHT ARM OPERATOR.[email or web address] respirations Mental status Awake,Calm 01/20/24 10:33 EIGHT ARM OPERATOR.GDOTT nausea No 01/20/24 10:33 EIGHT ARM OPERATOR.GDOTT Vomiting No 01/20/24 10:33 EIGHT ARM OPERATOR.GDOTT Anesthesia Postop Eval I: Fluid Summary Crystalloid volume administer 500 01/20/24 10:33 EIGHT ARM OPERATOR.GDOTT (ml) Colloids volume administered ( ml) Blood Product volume administered (ml) Total IV fluid infused 500 01/20/24 10:33 EIGHT ARM OPERATOR.[email or web address] Anesthesia Postop Eval I: Summary Notes Anesthesia Complication No 01/20/24 10:33 EIGHT ARM OPERATOR.[email or web address] Anesthesia Complication Comment: Post-operative progress note Anesthesia: Postop Eval II Evaluation Mental status: Awake Pain Level: 0 nausea: No Vomiting: No
== END 2024-01-20 11:30 | disposition home or self-care (01) ==
LOC: SDC 07:19 → AC 07:22
PROVIDERS: PCP Nurse Practitioner Family; Referring Provider Surgery Plastic and Reconstructive Surgery; Visit Provider Surgery Plastic and Reconstructive Surgery
PROC: (CPT 11423; principal; 2024-01-20 08:45)
DX: L72.0 Epidermal cyst (principal); J44.9 Chronic obstructive pulmonary disease, unspecified; E11.9 Type 2 diabetes mellitus without complications; I10 Essential (primary) hypertension; Z79.899 Other long term (current) drug therapy; Z79.82 Long term (current) use of aspirin; L08.9 Local infection of the skin and subcutaneous tissue, unspecified
CPT/HCPCS: 11423; 11422; 12032; 00300; J7120; 88304; J2405

== ENCOUNTER → 2024-05-23 | Outpatient (CLI) | payer MEDICARE, SELFPAY ==
--- NOTE | 2024-05-23 13:48 | BI_ITS ---
PROCEDURE: SCRN MAMM (CAD)W/MITCHEL BILAT REASON FOR EXAM: F, Age 78 y/o, routine annual mammographic follow-up. Grandmother with breast cancer. TECHNIQUE: Bilateral screening digital breast tomosynthesis with 2D and 3D images. Computer aided detection. COMPARISON: Prior exam(s) dating back to May 19, 2023. FINDINGS: The breasts are almost entirely fatty. Stable small benign-appearing bilateral axillary lymph nodes. No suspicious masses, areas of developing architectural distortion, or suspicious calcifications. Stable examination. BI/SCRN MAMM (CAD)W/MITCHEL BILAT IMPRESSION: BI-RADS 2: BENIGN. RECOMMEND ANNUAL MAMMOGRAPHIC SCREENING. Follow-up code: Routine Follow-up The patient will be notified of the results by letter. Reading Location: [place] [address]
== END | disposition home or self-care (01) ==
PROVIDERS: PCP Nurse Practitioner Family; Referring Provider Nurse Practitioner Family; Visit Provider Nurse Practitioner Family
DX: Z12.31 Encounter for screening mammogram for malignant neoplasm of breast (principal)
CPT/HCPCS: 77063; 77067

== ENCOUNTER 2024-09-30 11:57 | Observation (INO) | payer MEDICARE, SELFPAY ==
[2024-09-30] VITALS (7 sets, daily range): BP systolic 126–139; BP diastolic 58–98; PULSE 64–82; RESP 16–20; TEMP 36.4–36.8; O2SAT 91–99; BMI 42.0
--- NOTE | 2024-09-30 12:16 | CT_ITS ---
EXAM: CT Head Without Intravenous Contrast CLINICAL INDICATION: INJURY TECHNIQUE: Axial computed tomography images of the head/brain without intravenous contrast. This CT exam was performed using one or more of the following dose reduction techniques: automated exposure control, adjustment of the mA and/or kV according to patient size, and/or use of iterative reconstruction technique. COMPARISON: No relevant prior studies available. FINDINGS: BRAIN AND EXTRA-AXIAL SPACES: The cerebral and cerebellar sulci are prominent consistent with brain atrophy. No acute intracranial hemorrhage, midline shift or mass effect. If symptoms persist, further evaluation with MRI is recommended. Mild areas of decreased attenuation in the deep cerebral white matter are consistent with mild small vessel ischemic/degenerative changes. BONES/JOINTS: Unremarkable. No acute fracture. SOFT TISSUES: Unremarkable. SINUSES: Unremarkable as visualized. No acute sinusitis. MASTOID AIR CELLS: Unremarkable as visualized. No mastoid effusion. CT/Brain/Head without Contrast IMPRESSION: 1. Generalized brain atrophy. 2. No acute intracranial hemorrhage, midline shift or mass effect. If symptoms persist, further evaluation with MRI is recommended. 3. Mild small vessel ischemic/degenerative changes. Reading Location[facility]
--- NOTE | 2024-09-30 12:16 | RAD_ITS ---
PROCEDURE: SHOULDER MIN 2 VIEWS 09/30/2024 REASON FOR EXAM: INJURY TECHNIQUE: Four views of the left shoulder were obtained. COMPARISON: None FINDINGS: There is evidence of hypertrophic osteoarthritic changes involving the left acromioclavicular joint. No fracture or dislocation is seen. Osteoarthritis of the glenohumeral joint. RAD/Shoulder min 2 Views IMPRESSION: Degenerative changes. No acute fracture or dislocation is seen. Reading Location: [facility]
--- NOTE | 2024-09-30 12:16 | ED.VIS.FALL ---
HPI HPI - Fall History of Present Illness Chief Complaint: Fall Informant: patient and EMS Narrative Narrative: 79-year-old female states that she was walking down a ramp when at the end of the ramp there is a slight home. She caught her toe on the home which caused her to fall down. Struck the left side of her head left shoulder and left hip on the ground. EMS arrived there to get her up and she was able to bear some weight on the left hip. She notes pain in the shoulder and the hip with range of motion. She notes slight headache. She denies any back or neck pain. She denies any external bleeding. [facility] Medical History Cardiology follow-up encounter History of high cholesterol History of hypertension History of hearing problem History of exudative age-related macular degeneration History of gallstones History of COPD History of cataract History of environmental allergies Trichilemmal cyst Skin infection Other acute postprocedural pain Wears dentures Wears glasses Post-menopausal Back pain Injury of head and neck History of hiatal hernia Gastric reflux Shortness of breath on exertion History of pain when walking History of edema History of stress test History of irregular heartbeat Hx of sebaceous cyst DM type 2, goal HbA1c < 7% Dysesthesia Mass of left thigh High cholesterol Hearing problem Gallstones COPD (chronic obstructive pulmonary disease) Bone fracture Arthritis Allergies Hypertension Non-smoker Hiatal hernia Asthma Hypertension Diabetes Home Medications ?Medication ?Instructions ?Recorded ?Last Taken ?Type acetaminophen 500 mg tablet 500 - 1,000 mg PO Q6H PRN PRN 12/22/13 Unknown History Mild/Moderate Pain amlodipine 5 mg tablet 5 mg PO DAILY 12/22/13 02/23/23 History enalapril maleate 20 mg tablet 20 mg PO BID 12/22/13 02/23/23 History fluticasone propionate 50 2 spray NASAL DAILY PRN Allergies 12/22/13 Unknown History mcg/actuation nasal spray,suspension omeprazole 20 mg capsule,delayed 20 mg PO DAILY 12/22/13 02/23/23 History release cholecalciferol (vitamin D3) 50 2,000 unit PO DAILY 06/12/16 02/22/23 History mcg (2,000 unit) capsule aspirin 81 mg tablet,delayed 81 mg PO TUFR 10/15/17 01/08/24 History release Held on 02/23/23. Instructions: Resume on 02/27/23. turmeric 450 mg-turmeric root 1 ea PO DAILY 10/15/17 02/22/23 History extract 50 mg capsule ascorbic acid 100 mg-zinc sulfate 1 tab PO DAILY 12/25/22 02/22/23 History 200 mg tablet fluticasone fur. 100 mcg-umeclid 1 inh inhalation DAILY 12/25/22 02/23/23 History 62.5 mcg-vilant 25 mcg inhalat.powder (Trelegy Ellipta) ascorbic acid (vitamin C) 500 mg 500 mg PO DAILY 02/16/23 02/22/23 History tablet,extended release (C-500) loratadine 10 mg tablet (Allergy 10 mg PO DAILY 02/16/23 02/22/23 History Relief (loratadine)) omega-3 fatty acids 1,000 mg PO DAILY 02/16/23 02/22/23 History vitamins A,C,G-tihz-ssmnsp 4,296 1 cap PO DAILY 02/16/23 02/22/23 History mcg-226 mg-90 mg capsule (PreserVision AREDS) calcium carbonate (Calcium 600) 600 mg PO DAILY 01/14/24 Unknown History ondansetron 4 mg disintegrating 4 mg PO Q8H PRN nausea and 01/20/24 Unknown Rx tablet vomiting 5 days #10 tabs Allergy/AdvReac Type Severity Reaction Status Date / Time adhesive tape AdvReac REDNESS TO Verified 05/06/24 09:42 SKIN Enlrztp-EMI-WwA Reductase AdvReac Other Verified 05/06/24 09:42 Inhibitor (Agkuizj-Epu-Whm Reductase Inhibitor) Family History Father Hypertension Heart disease CVA (cerebral vascular accident) Mother Raynauds disease Scleroderma Arthritis Surgical History History of cholecystectomy History of toe surgery History of appendectomy History of excision of mass Hx of tonsillectomy Hx of hammer toe correction Hx of repair of ear bone S/P appendectomy S/P cholecystectomy History of hysteroscopy H/O tubal ligation H/O total knee replacement Social History adopted: No household members: none housing: house number of children: 2 current occupational status: employed current occupation: [employer] Smoking Status: Never smoker alcohol intake: never substance use type: does not use seatbelt use: always do you feel safe at home: Yes additional social history: Does Take Aspirin Daily Does Take Ibuprofen As Needed ROS ROS ED Constitutional Constitutional ED: Denies chills, fever(s) or weight loss Eyes Eyes: Denies change in vision or diplopia ENT ENT ED: Denies ear pain, rhinorrhea or sore throat Cardiovascular Cardiovascular: Denies chest pain, orthopnea, palpitations or racing heartbeat Respiratory/Chest Respiratory/Chest: Denies cough, dyspnea or orthopnea Gastrointestinal Gastrointestinal: Denies abdominal pain, diarrhea, nausea or vomiting Genitourinary Genitourinary ED: Denies dysuria, hematuria or urinary frequency Musculoskeletal Musculoskeletal: Reports other Details: Left shoulder left hip pain ; Denies arthralgias or myalgias Integumentary Denies abscess or rash Neurologic Neurologic: Reports headache(s); Denies paresthesias or weakness Psychiatric Psychiatric: Denies anxiety, depression, suicidal ideation or suicidal thoughts Endocrine Endocrinology: Denies polydipsia, polyphagia or polyuria Allergic/Immunologic Allergic/Immunologic ED: Denies mouth swelling, tongue swelling or urticaria EXAM Physical Exam Const Vital Signs: 09/30/24 11:57 09/30/24 11:58 09/30/24 13:57 Temperature 98.3 F Temperature Source Oral Pulse Rate 75 70 Respiratory Rate 16 16 Respiratory Effort Normal Non-Labored Respiratory Depth Normal Respiratory Pattern Normal Blood Pressure 139/69 H 131/58 H Blood Pressure Mean 92 82 Pulse Ox 98 95 Oxygen Delivery Method Room Air 09/30/24 15:00 Temperature Temperature Source Pulse Rate 77 Respiratory Rate 16 Respiratory Effort Respiratory Depth Respiratory Pattern Blood Pressure 132/98 H Blood Pressure Mean 109 Pulse Ox 99 Oxygen Delivery Method Positive well nourished and well developed General Appearance ED: well developed HEENT Reports normocephalic, head/scalp atraumatic and moist mucous membranes HEENT Narrative: I do not appreciate any significant hematoma abrasions or contusions Eyes PERRL and EOMs intact bilaterally Neck full ROM, no lymphadenopathy, supple and no JVD General: Negative for tenderness Resp normal respiratory effort and clear to auscultation bilaterally Cardio regular rate, regular rhythm and no murmurs GI normal to inspection, nondistended, normoactive bowel sounds and non-tender Palpation: soft Back/Spine no CVA tenderness and normal ROM Extremity Extremity Narrative: Painful range of motion of the left shoulder. There is no obvious dislocation or deformity. Clavicle is nontender. Elbow wrist and hand nontender and appear atraumatic. The left hip demonstrates painful logroll and range of motion. No tenderness over the greater trochanter is noted. I do not appreciate abrasions on the leg. Neurovascular intact distally. Tender to palpation over the superior pubic rami General Extremety ED: Negative for edema General Extremity: Negative for edema Neuro oriented x3 and CN's II-XII intact bilaterally [place] Coma Scale: document GCS findings Spontaneous Obeys Commands Oriented 15 Sensorium / Orientation: alert Motor Exam: strength 5/5 throughout Psych mental status grossly normal Mood & Affect: Negative for depressed or tearful Skin no rashes or lesions noted and no wounds MDM MDM MDM Narrative Medical decision making narrative: Differential diagnosis includes but not limited to intracranial hemorrhage skull fracture older fracture shoulder dislocation shoulder contusion left hip fracture left hip contusion traumatic bursitis sprain strain CT of the brain was obtained read by radiology reviewed by myself is negative for intracranial hemorrhage or skull fracture. My independent interpretation of the plain films of the left shoulder is no acute fracture or dislocation. Plan depend interpretation of the plain films of the left hip and pelvis is acute fracture of the superior and inferior pubic rami on the left. Patient and her daughter were updated advised of the above results. She does have walker at home as well as pain medication. I did give her a dose of oxycodone here and get her up with a walker and see how she performs. If she is able to ambulate without significant difficulty or risk of having a harm at home we can discharge her home otherwise we will plan on admission for possible placement in rehab. She has seen [facility] in the past and will be referred there. Update 1500 hrs. patient unable to ambulate or really get out of the bed. I will speak with the hospitalist regarding admission for probable placement to rehab facility. History & Record Review Discussion w/independent historian: EMS personnel and Patient Radiography Diagnostic Testing: Clinical Impression(s) from Imaging Studies Brain CT 09/30/24 12:16 IMPRESSION: 1. Generalized brain atrophy. 2. No acute intracranial hemorrhage, midline shift or mass effect. If symptoms persist, further evaluation with MRI is recommended. 3. Mild small vessel ischemic/degenerative changes. [facility] Should[facility] X-Ray 09/30/24 12:16 IMPRESSION: Degenerative changes. No acute fracture or dislocation is seen. Reading Location: [id number] Hip/Pelvis X-Ray 09/30/24 13:10 IMPRESSION: Nondisplaced fracture of the medial aspect of the left superior and inferior pubic rami. Reading Location: [id number] Management Discussion w/another healthcare provider: Hospitalist (Dr Bradley) Discharge Plan Dx/Rx/DC Orders Clinical Impression: Fall, Head injury, Contusion of left shoulder, Closed fracture of left superior pubic ramus, Closed fracture of left inferior pubic ramus Disposition Disposition: Acute Care [facility]
--- NOTE | 2024-09-30 13:10 | RAD_ITS ---
PROCEDURE: HIP, UNI W/ PELVIS 2-3 VIEWS 09/30/2024 REASON FOR EXAM: INJURY TECHNIQUE: Three views of the left hip were obtained. COMPARISON: Prior study dated January 27, 2021. FINDINGS: Bones: Nondisplaced fracture of the medial aspect of the left superior and inferior pubic rami. Joints: Degenerative changes of the left hip joint. Soft tissues: Soft tissue swelling Other: RAD/HIP, UNI W/ Pelvis 2-3 Views IMPRESSION: Nondisplaced fracture of the medial aspect of the left superior and inferior pu bic rami. Reading Location: [id number]
[2024-09-30] MEDS: oxyCODONE 5 MG Tablet PO (14:20)
--- NOTE | 2024-09-30 16:11 | PCM.HP.STD ---
HPI - General General Date of Admission: 09/30/24 Date of Service: 09/30/24 Chief Complaint: left hip pain HPI Narrative BRANDIN MAY, is a 79 F with pmhx HTN, COPD, diet controlled DMt2, who presents to the ER with left hip pain. Pt was walking down a ramp today and hit a bump at the end of this ramp and fell forward to the ground. She struck the left side of her face, her left shoulder, and her left hip. Hip pain was most pronounced at the time - she was unable to get up until EMS arrived on scene. EMS was able to help her stand tho WB is painful in the left hip. She was not ambualted but sat on the cot and was brought to the ER. In the ER she had a CT brain which was negative for acute process. She had an xray of the left shoulder - negative for acute process. She had an xray of the left hip and pelvis showing nondisplaced fracture of the medial aspect of the left superior and inferior pubic rami. In the er she has minimal pain at rest (1/10 aching) left hip. However she could not pivot to stand up or walk in the ER. She does not feel comfortable returning home unable to walk and she is open to placement in a SNF. [facility] Medical History Cardiology follow-up encounter History of high cholesterol History of hypertension History of hearing problem History of exudative age-related macular degeneration History of gallstones History of COPD History of cataract History of environmental allergies Trichilemmal cyst Skin infection Other acute postprocedural pain Wears dentures Wears glasses Post-menopausal Back pain Injury of head and neck History of hiatal hernia Gastric reflux Shortness of breath on exertion History of pain when walking History of edema History of stress test History of irregular heartbeat Hx of sebaceous cyst DM type 2, goal HbA1c < 7% Dysesthesia Mass of left thigh High cholesterol Hearing problem Gallstones COPD (chronic obstructive pulmonary disease) Bone fracture Arthritis Allergies Hypertension Non-smoker Hiatal hernia Asthma Hypertension Diabetes Home Medications ?Medication ?Instructions ?Recorded ?Last Taken ?Type acetaminophen 500 mg tablet 500 - 1,000 mg PO Q6H PRN PRN 12/22/13 Unknown History Mild/Moderate Pain amlodipine 5 mg tablet 5 mg PO DAILY 12/22/13 02/23/23 History enalapril maleate 20 mg tablet 20 mg PO BID 12/22/13 02/23/23 History fluticasone propionate 50 2 spray NASAL DAILY PRN Allergies 12/22/13 Unknown History mcg/actuation nasal spray,suspension omeprazole 20 mg capsule,delayed 20 mg PO DAILY 12/22/13 02/23/23 History release cholecalciferol (vitamin D3) 50 2,000 unit PO DAILY 06/12/16 02/22/23 History mcg (2,000 unit) capsule aspirin 81 mg tablet,delayed 81 mg PO TUFR 10/15/17 01/08/24 History release turmeric 450 mg-turmeric root 1 ea PO DAILY 10/15/17 02/22/23 History extract 50 mg capsule ascorbic acid 100 mg-zinc sulfate 1 tab PO DAILY 12/25/22 02/22/23 History 200 mg tablet fluticasone fur. 100 mcg-umeclid 1 inh inhalation DAILY 12/25/22 02/23/23 History 62.5 mcg-vilant 25 mcg inhalat.powder (Trelegy Ellipta) ascorbic acid (vitamin C) 500 mg 500 mg PO DAILY 02/16/23 02/22/23 History tablet,extended release (C-500) loratadine 10 mg tablet (Allergy 10 mg PO DAILY 02/16/23 02/22/23 History Relief (loratadine)) omega-3 fatty acids 1,000 mg PO DAILY 02/16/23 02/22/23 History vitamins A,C,B-cqwj-nrvndk 4,296 1 cap PO DAILY 02/16/23 02/22/23 History mcg-226 mg-90 mg capsule (PreserVision AREDS) calcium carbonate (Calcium 600) 600 mg PO DAILY 01/14/24 Unknown History ondansetron 4 mg disintegrating 4 mg PO Q8H PRN nausea and 01/20/24 Unknown Rx tablet vomiting 5 days #10 tabs Allergy/AdvReac Type Severity Reaction Status Date / Time adhesive tape AdvReac REDNESS TO Verified 05/06/24 09:42 SKIN Zueanms-PXD-ZzL Reductase AdvReac Other Verified 05/06/24 09:42 Inhibitor (Phnihln-Mbn-Llh Reductase Inhibitor) Family History Father Hypertension Heart disease CVA (cerebral vascular accident) Mother Raynauds disease Scleroderma Arthritis Surgical History History of cholecystectomy History of toe surgery History of appendectomy History of excision of mass Hx of tonsillectomy Hx of hammer toe correction Hx of repair of ear bone S/P appendectomy S/P cholecystectomy History of hysteroscopy H/O tubal ligation H/O total knee replacement Social History adopted: No household members: none housing: house number of children: 2 current occupational status: employed current occupation: [employer] Smoking Status: Never smoker alcohol intake: never substance use type: does not use seatbelt use: always do you feel safe at home: Yes additional social history: Does Take Aspirin Daily Does Take Ibuprofen As Needed Vital Signs Vital Signs Vital Signs: 09/30/24 11:57 09/30/24 11:58 09/30/24 13:57 Temperature 98.3 F Temperature Source Oral Pulse Rate 75 70 Respiratory Rate 16 16 Respiratory Effort Normal Non-Labored Respiratory Depth Normal Respiratory Pattern Normal Blood Pressure 139/69 H 131/58 H Blood Pressure Mean 92 82 Pulse Ox 98 95 Oxygen Delivery Method Room Air 09/30/24 15:00 09/30/24 15:48 Temperature 97.9 F Temperature Source Pulse Rate 77 77 Respiratory Rate 16 16 Respiratory Effort Respiratory Depth Respiratory Pattern Blood Pressure 132/98 H 132/98 H Blood Pressure Mean 109 109 Pulse Ox 99 99 Oxygen Delivery Method Weight Weight: 107.7 kg Body Mass Index (BMI) 42.0 Results Lab / Micro Data 09/30/24 15:25 09/30/24 15:25 Imaging Radiology Impression Brain CT 09/30/24 12:16 IMPRESSION: 1. Generalized brain atrophy. 2. No acute intracranial hemorrhage, midline shift or mass effect. If symptoms persist, further evaluation with MRI is recommended. 3. Mild small vessel ischemic/degenerative changes. Reading Location: [facility] Shoulder X-Ray 09/30/24 12:16 IMPRESSION: Degenerative changes. No acute fracture or dislocation is seen. Reading Location: [id number] Hip/Pelvis X-Ray 09/30/24 13:10 IMPRESSION: Nondisplaced fracture of the medial aspect of the left superior and inferior pubic rami. Reading Location: [id number] Assessment & Plan Assessment/Plan (1) Closed fracture of left inferior pubic ramus: PLAN: 1. Mechanical fall with resulting nondisplaced left inferior and superior pubic rami fractures. now with inability to get out of bed or ambulate on her own. She will be kept overnight for pain control and physical therapy. She does not feel safe going home and is amenable to SNF placement. CM consult for assistance with placement. She also struck the left face and shoulder - CT brain and xray shoulder were negative for acute processes. 2. Hx COPD - no exacerbation at this time. aerosols prn. 3. HTN - stable continue enalapril, amlodipine 4. Hx diet controlled DMt2 - accuchecks as needed and consider adding sliding scale coverage if necessary. 5. GERD - on ppi. DV ppx: lovenox DC planning: cannot ambulate likely needs SNF This patient was seen by Andre Smith PA-C under the supervision of Doctor Vora (2) Closed fracture of left superior pubic ramus:
[2024-09-30 16:25] LABS: Absolute Lymphocyte Count 1.28 X10^3/uL (0.83-4.51); Absolute Neutrophil Count 12.5 X10^3/uL (2.0-7.7); Basophil# 0.07 X10^3/uL; Basophil% 0.5 % (0-1); Eosinophil# 0.06 X10^3/uL; Eosinophils% 0.4 % (0-5); Hematocrit 43.2 % (37-47); Hemoglobin 14.2 g/dL (12.0-15.0); Lymphocyte # 1.28 X10^3/ul (0.83-4.51); Lymphocyte % 8.5 % (19-41); Mean Corp Hgb Conc 32.9 g/dL (32-36); Mean Corpuscular Volume 91.1 fL (81-99); Mean Platelet Vol. 10.5 fl (6.2-12.0); Monocyte# 1.05 X10^3/uL; Monocyte% 6.9 % (0-10); NRBC Flagged by Analyzer 0 % (0-5); Neutrophil # 12.54 X10^3/uL (2.7-7.7); Neutrophil % 82.8 % (47-70); Platelet Count 228 K/mm3 (150-450); RBC Distribution Width CV 13.2 % (11.6-14.6); RBC Distribution Width SD 44.6 fl (35.1-43.9); Red Blood Count 4.74 M/mm3 (4.2-5.4); White Blood Count 15.1 K/mm3 (4.4-11.0)
[2024-09-30 16:27] LABS: Anion Gap 10 (5-15); BUN 28 mg/dL (4-19); Calcium,Total 9.6 mg/dL (7.6-11.0); Carbon Dioxide 25.8 mmol/L (21.0-32.0); Chloride 102 mmol/L (98-108); Creatinine, Serum 0.87 mg/dL (0.70-1.20); EST Glomerular Filtration Rate 69 (>60); Estimated Creatinine Clearance 63.71 ml/min (50-250); Glucose 118 mg/dL (70-99); Potassium 4.1 mmol/L (3.3-5.1); Sodium Level 138 mmol/L (133-145)
[2024-09-30] MEDS: Ipratropium/Albuterol Sulfate 3 ML AMPUL.NEB INHALATION (19:55)
[2024-09-30] MEDS: Budesonide Respules 0.5 MG/2 ML AMPUL.NEB. INHALATION (19:55)
[2024-09-30] MEDS: Lisinopril 20 MG Tablet PO (21:35)
[2024-09-30] MEDS: Acetaminophen 500 MG Tablet PO (21:51)
[2024-09-30 22:55] LABS: Bedside Glucose 187 mg/dL (74-106)
[2024-10-01] VITALS (7 sets, daily range): BP systolic 98–124; BP diastolic 55–66; PULSE 69–79; RESP 16–20; TEMP 36.8–37.3; O2SAT 91–94
[2024-10-01 06:18] LABS: Bedside Glucose 150 mg/dL (74-106)
[2024-10-01] MEDS: Budesonide Respules 0.5 MG/2 ML AMPUL.NEB. INHALATION ×2 (07:49→20:25)
[2024-10-01] MEDS: Ipratropium/Albuterol Sulfate 3 ML AMPUL.NEB INHALATION ×3 (07:50→20:25)
[2024-10-01] MEDS: Acetaminophen 500 MG Tablet PO ×3 (08:46→22:51)
[2024-10-01] MEDS: Calcium Carbonate 500 MG Tablet PO (08:46)
--- NOTE | 2024-10-01 09:55 | CASEMGMT ---
Addendum entered by Becky Medina 10/01/24 10:35: GRAY form explained re: Observation status for treatment of pelvic fracture.? Explained hospitalization will be paid per?her insurance policy for Outpatient billing?and condition will continue to be evaluated for Inpt necessity. Also let pt know that [facility] sends paper in the billing packet with their phone number if questions arise. Pt verbalizes understanding and does not have further questions. ?Form signed, copy made and placed in chart, and original given to pt. ? Original Note: RN?CM?[employer] OPERATING ENGINEER?CM?to room to meet with patient for initial transition planning/care coordination?assessment.?RN?CM?introduced self and role at [facility].? Pt voices understanding and consents to?assessment?at this time.? Pt resting in bed in no distress at this time.? Pt is A/O at this time and answers all questions appropriately.?? Care providers, pharmacy, and demographics verified/updated at this time. PCP: KETURAH Brizuela Specialists: Retinal specialist Preferred Pharmacy: [facility]. [facility] retail for same day. Insurance: [employer] [facility] Prescription Benefit:?yes LNOK: Daughter, Mima. Son, Lee Living Arrangements: Lives alone in mobile home, ramp entrance. Independent w/ADL's and IADL's @ baseline. Transportation:?Pt drives. DME: has the following DME:?ramp, high rise toilet, cane, walker, grab bars in shower. HHC/SNF: No hx of HHC. was somewhere in [place] for therapy in the past. Pt states she was unable to walk yesterday in ED and feels she will need SNF @ dc, but [facility] has not been OOB since. She was made aware therapy evals are pending and will see how she does w/therapy. Pt voices understanding. Discussed SNF referral process and insurance. She states [facility] would be her 1st choice. She states if [facility] unable to accept her then she would take a list of other SNF options to review. Anaya VILLATORO, made aware. Pt voices no further concerns/needs at this time.? Advised pt to ask for?CM?if any further questions/concerns/needs arise.? Voices understanding. PLAN:??TBD, pending therapy evals. If SNF is needed, 1st choice is [facility]. Sylwia BSN?RN?CM
--- NOTE | 2024-10-01 10:12 | PN.HOSP_ITS ---
Subjective Subjective Doing well, states that her pelvic pain is minimal but she is having shoulder pain, the x-ray of her left shoulder on admission just shows arthritic changes Objective Data Objective Data Vital Signs: Vital Signs Temp Pulse Resp BP Pulse Ox O2 Del Method 98.5 F 78 18 124/57 H 92 Room Air 10/01/24 08:34 10/01/24 08:34 10/01/24 08:34 10/01/24 08:34 10/01/24 08:34 10/01/24 08:36 Oxygen Delivery Method Room Air Weight: 237 lb 7.005 oz Body Mass Index (BMI) 42.0 Intake & Output: Intake and Output for Last 24 Hours 09/30/24 10/01/24 10/02/24 03:59 03:59 03:59 Intake Total 300 / 300 150 / 150 Output Total 350 / 350 300 / 300 Balance -50 / -50 -150 / -150 Lab / Micro Data 09/30/24 15:25 09/30/24 15:25 Labs: Laboratory Results - last 24 hr 09/30/24 15:25: WBC 15.1 H, RBC 4.74, Hgb 14.2, Hct 43.2, MCV 91.1, MCH 30.0, MCHC 32.9, RDW Std Deviation 44.6 H, RDW Coeff of Nena 13.2, Plt Count 228, MPV 10.5, Immature Gran % (Auto) 0.900, Neut % (Auto) 82.8 H, Lymph % (Auto) 8.5 L, [place] % (Auto) 6.9, Eos % (Auto) 0.4, Baso % (Auto) 0.5, Absolute Neuts (auto) 12.5 H, Absolute Lymphs (auto) 1.28, Nucleated RBC % 0, Sodium 138, Potassium 4.1, Chloride 102, Carbon Dioxide 25.8, Anion Gap 10, BUN 28 H, Creatinine 0.87, Estim Creat Clear Calc 63.71, Est GFR (MDRD) Non-Af 69, BUN/Creatinine Ratio 32.0 H, Glucose 118 H, Calcium 9.6 09/30/24 21:38: POC Glucose 187 H 10/01/24 05:56: POC Glucose 150 H Radiography Diagnostic Testing: Radiology Impression Brain CT 09/30/24 12:16 IMPRESSION: 1. Generalized brain atrophy. 2. No acute intracranial hemorrhage, midline shift or mass effect. If symptoms persist, further evaluation with MRI is recommended. 3. Mild small vessel ischemic/degenerative changes. Reading Location: [facility] Shoulder X-Ray 09/30/24 12:16 IMPRESSION: Degenerative changes. No acute fracture or dislocation is seen. Reading Location: [facility] Hip/Pelvis X-Ray 09/30/24 13:10 IMPRESSION: Nondisplaced fracture of the medial aspect of the left superior and inferior pubic rami. Reading Location: [facility] Physical Exam Narrative General: Alert, Oriented x3, Cooperative, No apparent distress HEENT: Atraumatic, PERRLA, EOMI, Normocephalic Oral: Moist Mucosa Neck: Supple, No JVD Lungs: Diminished, Normal air movement, No rhonchi, No wheeze, No rales Cardiovascular: Regular rate, Regular Rhythm, Normal S1, Normal S2, No murmurs Abdomen: Soft, Non Tender, Non-Distended, No Hepato-splenomegaly Extremities: No edema, Capillary Refill Less than 3 Seconds Skin: No rashes, No breakdown Musculoskeletal: No Tenderness to Palpation of Joints or Extremities Neurological: No focal neurological deficits, moves all extremities, sensation intact Psych/Mental Status: Normal Affect, Appropriate Assessment & Plan Assessment/Plan (1) Closed fracture of left inferior pubic ramus: (2) Closed fracture of left superior pubic ramus: PLAN: Plan 1. Closed left inferior pubic ramus fracture after mechanical fall ? PT/OT ? May need placement due to weakness and pain control ? She has no other fractures on imaging 2. Essential HTN ? Continue with her home blood pressure medications ? Her blood pressures are currently stable ? Will monitor and make adjustments as necessary 3. COPD ? Not in exacerbation ? Continue with her home inhalers 4. GERD ? Stable ? Continue with PPI DVT: Lovenox Charges/Coding Visit Charges Inpatient E&M: 35218 Subs Hosp L2
[2024-10-01] MEDS: Multivitamin (Healthy Eyes) Capsule 1 CAP PO (10:56)
[2024-10-01] MEDS: Omega-3 Acid Ethyl Esters 1 GM Capsule PO (10:57)
[2024-10-01] MEDS: Cholecalciferol (VIT D3) 25 MCG TABLET (1,000 UNITS) 50 MCG PO (10:57)
[2024-10-01] MEDS: Enoxaparin 40 MG/0.4 ML Syringe SC (10:57)
[2024-10-01] MEDS: amLODIPine 5 MG Tablet PO (10:57)
[2024-10-01] MEDS: Pantoprazole Sodium 20 MG Tablet PO (10:57)
[2024-10-01] MEDS: Loratadine 10 MG Tablet PO (10:58)
[2024-10-01] MEDS: Lisinopril 20 MG Tablet PO (10:58)
[2024-10-01] MEDS: Ascorbic Acid 500 MG Tablet PO (10:58)
[2024-10-01 12:09] LABS: Bedside Glucose 183 mg/dL (74-106)
--- NOTE | 2024-10-01 14:02 | CASEMGMT ---
Social Work SW met with pt to discuss discharge plan. Pt states she has had therapy today and does not feel like she can return home alone at this time. A list of SNF providers including quality and resource use data and consistent with the patient?s preferred geographic region, medical needs, and insurance network were provided from the [employer] Guide. Pt preferred provider is [facility]. Referral emailed to Thalia in admissions. SW requested pt review list over the weekend and have a back up choice in the event TCU is unable to accept. Plan: TCU, pending acceptance and precert GONZALEZ Chen
[2024-10-01] MEDS: oxyCODONE 5 MG Tablet PO ×2 (14:45→20:16)
[2024-10-01 16:38] LABS: Bedside Glucose 147 mg/dL (74-106)
[2024-10-02] VITALS (8 sets, daily range): BP systolic 112–129; BP diastolic 41–61; PULSE 60–71; RESP 16–18; TEMP 36.4–36.9; O2SAT 93–95
[2024-10-02] MEDS: oxyCODONE 5 MG Tablet PO (05:16)
[2024-10-02 07:07] LABS: Absolute Lymphocyte Count 1.57 X10^3/uL (0.83-4.51); Absolute Neutrophil Count 7.1 X10^3/uL (2.0-7.7); Basophil# 0.06 X10^3/uL; Basophil% 0.6 % (0-1); Eosinophil# 0.11 X10^3/uL; Eosinophils% 1.1 % (0-5); Hematocrit 43.1 % (37-47); Hemoglobin 13.8 g/dL (12.0-15.0); Lymphocyte # 1.57 X10^3/ul (0.83-4.51); Lymphocyte % 15.8 % (19-41); Mean Corpuscular Hgb 29.5 pg (27.0-32.0); Mean Corpuscular Volume 92.1 fL (81-99); Mean Platelet Vol. 10.5 fl (6.2-12.0); Monocyte# 1.09 X10^3/uL; NRBC Flagged by Analyzer 0 % (0-5); Neutrophil # 7.06 X10^3/uL (2.7-7.7); Neutrophil % 71.1 % (47-70); Platelet Count 205 K/mm3 (150-450); RBC Distribution Width CV 13.8 % (11.6-14.6); RBC Distribution Width SD 46.9 fl (35.1-43.9); Red Blood Count 4.68 M/mm3 (4.2-5.4); White Blood Count 9.9 K/mm3 (4.4-11.0)
[2024-10-02 07:23] LABS: Anion Gap 10 (5-15); BUN 23 mg/dL (4-19); Calcium,Total 9.3 mg/dL (7.6-11.0); Carbon Dioxide 25.9 mmol/L (21.0-32.0); Chloride 103 mmol/L (98-108); Creatinine, Serum 0.92 mg/dL (0.70-1.20); EST Glomerular Filtration Rate 64 (>60); Estimated Creatinine Clearance 59.13 ml/min (50-250); Glucose 109 mg/dL (70-99); Potassium 4.7 mmol/L (3.3-5.1); Sodium Level 139 mmol/L (133-145)
[2024-10-02] MEDS: Ipratropium/Albuterol Sulfate 3 ML AMPUL.NEB INHALATION ×3 (07:25→20:36)
[2024-10-02] MEDS: Budesonide Respules 0.5 MG/2 ML AMPUL.NEB. INHALATION ×2 (07:25→20:36)
[2024-10-02] MEDS: Acetaminophen 500 MG Tablet PO ×2 (08:14→16:06)
[2024-10-02] MEDS: Calcium Carbonate 500 MG Tablet PO (08:18)
[2024-10-02] MEDS: Omega-3 Acid Ethyl Esters 1 GM Capsule PO (10:44)
[2024-10-02] MEDS: Loratadine 10 MG Tablet PO (10:44)
[2024-10-02] MEDS: amLODIPine 5 MG Tablet PO (10:44)
[2024-10-02] MEDS: Lisinopril 20 MG Tablet PO ×2 (10:44→23:01)
[2024-10-02] MEDS: Pantoprazole Sodium 20 MG Tablet PO (10:44)
[2024-10-02] MEDS: Ascorbic Acid 500 MG Tablet PO (10:45)
[2024-10-02] MEDS: Multivitamin (Healthy Eyes) Capsule 1 CAP PO (10:45)
[2024-10-02] MEDS: Cholecalciferol (VIT D3) 25 MCG TABLET (1,000 UNITS) 50 MCG PO (10:45)
[2024-10-02] MEDS: Enoxaparin 40 MG/0.4 ML Syringe SC (10:45)
--- NOTE | 2024-10-02 11:14 | PN.HOSP_ITS ---
Subjective Subjective Still has significant pain in the left shoulder however imaging demonstrates osteoarthritis no fracture Objective Data Objective Data Vital Signs: Vital Signs Temp Pulse Resp BP Pulse Ox O2 Del Method 98.2 F 71 16 129/51 H 95 Room Air 10/02/24 09:00 10/02/24 09:00 10/02/24 09:00 10/02/24 09:00 10/02/24 09:00 10/02/24 09:00 Oxygen Delivery Method Room Air Weight: 237 lb 7.005 oz Body Mass Index (BMI) 42.0 Intake & Output: Intake and Output for Last 24 Hours 10/01/24 10/02/24 10/03/24 03:59 03:59 03:59 Intake Total 300 / 300 1300 / 1300 350 / 350 Output Total 350 / 350 1800 / 1800 400 / 400 Balance -50 / -50 -500 / -500 -50 / -50 Lab / Micro Data 10/02/24 05:55 10/02/24 05:55 Labs: Laboratory Results - last 24 hr 10/01/24 11:38: POC Glucose 183 H 10/01/24 16:16: POC Glucose 147 H 10/02/24 05:55: WBC 9.9, RBC 4.68, Hgb 13.8, Hct 43.1, MCV 92.1, MCH 29.5, MCHC 32.0, RDW Std Deviation 46.9 H, RDW Coeff of Nena 13.8, Plt Count 205, MPV 10.5, Immature Gran % (Auto) 0.400, Neut % (Auto) 71.1 H, Lymph % (Auto) 15.8 L, [place] % (Auto) 11.0 H, Eos % (Auto) 1.1, Baso % (Auto) 0.6, Absolute Neuts (auto) 7.1, Absolute Lymphs (auto) 1.57, Nucleated RBC % 0, Sodium 139, Potassium 4.7, Chloride 103, Carbon Dioxide 25.9, Anion Gap 10, BUN 23 H, Creatinine 0.92, Estim Creat Clear Calc 59.13, Est GFR (MDRD) Non-Af 64, BUN/Creatinine Ratio 25.0 H, Glucose 109 H, Calcium 9.3 Physical Exam Narrative General: Alert, Oriented x3, Cooperative, No apparent distress HEENT: Atraumatic, PERRLA, EOMI, Normocephalic Oral: Moist Mucosa Neck: Supple, No JVD Lungs: Diminished, Normal air movement, No rhonchi, No wheeze, No rales Cardiovascular: Regular rate, Regular Rhythm, Normal S1, Normal S2, No murmurs Abdomen: Soft, Non Tender, Non-Distended, No Hepato-splenomegaly Extremities: No edema, Capillary Refill Less than 3 Seconds Skin: No rashes, No breakdown Musculoskeletal: No Tenderness to Palpation of Joints or Extremities Neurological: No focal neurological deficits, moves all extremities, sensation intact Psych/Mental Status: Normal Affect, Appropriate Assessment & Plan Assessment/Plan (1) Closed fracture of left inferior pubic ramus: (2) Closed fracture of left superior pubic ramus: PLAN: Plan 1. Closed left inferior pubic ramus fracture after mechanical fall ? PT/OT ? May need placement due to weakness and pain control ? She has no other fractures on imaging ? Still feels weak today 2. Essential HTN ? Continue with her home blood pressure medications ? Her blood pressures are currently stable ? Will monitor and make adjustments as necessary 3. COPD ? Not in exacerbation ? Continue with her home inhalers 4. GERD ? Stable ? Continue with PPI DVT: Lovenox Charges/Coding Visit Charges Inpatient E&M: 31905 Subs Hosp L2
[2024-10-02] MEDS: Ibuprofen 600 MG Tablet PO ×2 (12:17→17:57)
[2024-10-02 12:38] LABS: Bedside Glucose 185 mg/dL (74-106)
[2024-10-02 16:40] LABS: Bedside Glucose 154 mg/dL (74-106)
[2024-10-03] VITALS (8 sets, daily range): BP systolic 95–126; BP diastolic 50–58; PULSE 63–80; RESP 16–20; TEMP 36.5–36.8; O2SAT 92–97
[2024-10-03] MEDS: Ibuprofen 600 MG Tablet PO ×4 (00:04→20:23)
[2024-10-03] MEDS: Budesonide Respules 0.5 MG/2 ML AMPUL.NEB. INHALATION ×2 (07:31→20:34)
[2024-10-03] MEDS: Ipratropium/Albuterol Sulfate 3 ML AMPUL.NEB INHALATION ×3 (07:31→20:34)
[2024-10-03] MEDS: amLODIPine 5 MG Tablet PO (09:39)
[2024-10-03] MEDS: Calcium Carbonate 500 MG Tablet PO (09:39)
[2024-10-03] MEDS: Enoxaparin 40 MG/0.4 ML Syringe SC (09:40)
[2024-10-03] MEDS: Ascorbic Acid 500 MG Tablet PO (09:40)
[2024-10-03] MEDS: Multivitamin (Healthy Eyes) Capsule 1 CAP PO (09:40)
[2024-10-03] MEDS: Loratadine 10 MG Tablet PO (09:40)
[2024-10-03] MEDS: Omega-3 Acid Ethyl Esters 1 GM Capsule PO (09:40)
[2024-10-03] MEDS: Lisinopril 20 MG Tablet PO (09:40)
[2024-10-03] MEDS: Pantoprazole Sodium 20 MG Tablet PO (09:40)
[2024-10-03] MEDS: Nystatin Powder 15gm Bottle 1 APPLIC TOPICAL ×2 (09:40→20:23)
[2024-10-03] MEDS: Cholecalciferol (VIT D3) 25 MCG TABLET (1,000 UNITS) 50 MCG PO (09:43)
--- NOTE | 2024-10-03 09:48 | PCM.PN.HOSP ---
Subjective Subjective Pain in her left shoulder is improving and she was able to ambulate about 40 feet today contact-guard with a walker Objective Data Objective Data Vital Signs: Vital Signs Temp Pulse Resp BP Pulse Ox O2 Del Method 98 F 73 16 126/50 H 96 Room Air 10/03/24 09:00 10/03/24 09:00 10/03/24 09:00 10/03/24 09:00 10/03/24 09:00 10/03/24 09:00 Oxygen Delivery Method Room Air Weight: 237 lb 7.005 oz Body Mass Index (BMI) 42.0 Intake & Output: Intake and Output for Last 24 Hours 10/02/24 10/03/24 10/04/24 03:59 03:59 03:59 Intake Total 1300 / 1300 1350 / 1350 200 / 200 Output Total 1800 / 1800 1350 / 1350 200 / 200 Balance -500 / -500 0 / 0 0 / 0 Lab / Micro Data 10/02/24 05:55 10/02/24 05:55 Labs: Laboratory Results - last 24 hr 10/02/24 12:14: POC Glucose 185 H 10/02/24 15:57: POC Glucose 154 H Physical Exam Narrative General: Alert, Oriented x3, Cooperative, No apparent distress HEENT: Atraumatic, PERRLA, EOMI, Normocephalic Oral: Moist Mucosa Neck: Supple, No JVD Lungs: Diminished, Normal air movement, No rhonchi, No wheeze, No rales Cardiovascular: Regular rate, Regular Rhythm, Normal S1, Normal S2, No murmurs Abdomen: Soft, Non Tender, Non-Distended, No Hepato-splenomegaly Extremities: No edema, Capillary Refill Less than 3 Seconds Skin: No rashes, No breakdown Musculoskeletal: No Tenderness to Palpation of Joints or Extremities Neurological: No focal neurological deficits, moves all extremities, sensation intact Psych/Mental Status: Normal Affect, Appropriate Assessment & Plan Assessment/Plan (1) Closed fracture of left inferior pubic ramus: (2) Closed fracture of left superior pubic ramus: PLAN: Plan 1. Closed left inferior pubic ramus fracture after mechanical fall ? PT/OT ? May need placement due to weakness and pain control ? She has no other fractures on imaging ? Still feels weak today, case management has been consulted for assistance with discharge planning 2. Essential HTN ? Continue with her home blood pressure medications ? Her blood pressures are currently stable ? Will monitor and make adjustments as necessary 3. COPD ? Not in exacerbation ? Continue with her home inhalers 4. GERD ? Stable ? Continue with PPI DVT: Lovenox Charges/Coding Visit Charges Inpatient E&M: 15960 Subs Hosp L2
--- NOTE | 2024-10-03 10:32 | CASEMGMT ---
Social Work- SW received notice from [facility] admissions that pt precert started. SW updated pt. IRVING remains available to follow. GONZALEZ Zamorano
[2024-10-03] MEDS: Acetaminophen 500 MG Tablet PO (14:14)
[2024-10-03] MEDS: 0.9% Saline Lock 10 ML Syringe IV (20:23)
[2024-10-04 04:16] VITALS: BP 125/95; PULSE 62; RESP 17; TEMP 36.5; O2SAT 96
[2024-10-04] MEDS: Ibuprofen 600 MG Tablet PO ×2 (04:20→12:56)
[2024-10-04] MEDS: Budesonide Respules 0.5 MG/2 ML AMPUL.NEB. INHALATION (07:07)
[2024-10-04] MEDS: Ipratropium/Albuterol Sulfate 3 ML AMPUL.NEB INHALATION ×2 (07:07→13:15)
[2024-10-04 07:08] VITALS: PULSE 67; RESP 16; O2SAT 93
[2024-10-04 07:40] VITALS: BP 102/62; PULSE 72; RESP 16; TEMP 36.1; O2SAT 95
[2024-10-04] MEDS: Enoxaparin 40 MG/0.4 ML Syringe SC (07:42)
[2024-10-04] MEDS: Aspirin 81 MG TAB.CHEW PO (07:43)
[2024-10-04] MEDS: Multivitamin (Healthy Eyes) Capsule 1 CAP PO (07:43)
[2024-10-04] MEDS: Lisinopril 20 MG Tablet PO (07:43)
[2024-10-04] MEDS: Loratadine 10 MG Tablet PO (07:43)
[2024-10-04] MEDS: amLODIPine 5 MG Tablet PO (07:43)
[2024-10-04] MEDS: Pantoprazole Sodium 20 MG Tablet PO (07:43)
[2024-10-04] MEDS: Calcium Carbonate 500 MG Tablet PO (07:43)
[2024-10-04] MEDS: Ascorbic Acid 500 MG Tablet PO (07:43)
[2024-10-04] MEDS: Cholecalciferol (VIT D3) 25 MCG TABLET (1,000 UNITS) 50 MCG PO (07:43)
[2024-10-04] MEDS: Omega-3 Acid Ethyl Esters 1 GM Capsule PO (07:43)
[2024-10-04] MEDS: Nystatin Powder 15gm Bottle 1 APPLIC TOPICAL (07:44)
[2024-10-04] MEDS: Polyethylene Glycol 3350 17 GM PACKET PO (07:44)
--- NOTE | 2024-10-04 09:43 | TREXTCAR_ITS ---
Diet Diet Order/Speech Therapy: INPATIENT Hospital Diet / Speech Therapy Order(s) 09/30/24 17:22 Diet: Consistent Carb - Calorie Controlled How many daily calories?: 1999 calorie Routine Orders/Code Status Routine Lab Work: CBC and BMP Code Status: Full Code DC O2, CPAP, BIPAP needs Home O2 Discharge instructions: No Wound(s) Right upper arm: Wound Type: Abrasion Therapies Physical Therapy: Eval and Treat Occupational Therapy: Eval and Treat Problem/Diagnosis (1) Closed fracture of left inferior pubic ramus: Status: Acute Code(s): S32.592A - Other specified fracture of left pubis, initial encounter for closed fracture (2) Closed fracture of left superior pubic ramus: Status: Acute Code(s): S32.512A - Fracture of superior rim of left pubis, initial encounter for closed fracture Plan 1. Closed left inferior pubic ramus fracture after mechanical fall ? PT/OT ? May need placement due to weakness and pain control ? She has no other fractures on imaging ? Still feels weak today, case management has been consulted for assistance with discharge planning 2. Essential HTN ? Continue with her home blood pressure medications ? Her blood pressures are currently stable ? Will monitor and make adjustments as necessary 3. COPD ? Not in exacerbation ? Continue with her home inhalers 4. GERD ? Stable ? Continue with PPI DVT: Lovenox Allergies/Procedures Done in Hospital Allergies adhesive tape Adverse Reaction (Verified 05/06/24 09:42) REDNESS TO SKIN Vqsoexj-OXE-RpQ Reductase Inhibitor (Wiaevyc-Cgn-Qwp Reductase Inhibitor) Adve rse Reaction (Verified 05/06/24 09:42) Other Procedures: None Type of Care/Length of Stay Estimated LOS: Convalescent Care Less Than 30 days Type of Care Needed: Skilled Rehab Potential: Good Prognosis: Good Additional Orders/Day of Discharge Day of Discharge: 10/04/24 Discharge Plan Admission Admit Date/Time: 09/30/24 15:23 Attending Provider: Benitez Macias Primary Care Provider: Isa Brizuela Consulting Providers: Prashanth Vora Discharge Orders/Prescriptions Prescriptions: Continued ascorbic acid-zinc sulfate 200-100 mg tablet 1 tab PO DAILY Trelegy Ellipta 100-62.5-25 mcg blister with device 1 inh inhalation DAILY enalapril maleate 20 MG tablet 20 mg PO BID Patient Comments: blood pressure amlodipine 5 MG tablet 5 mg PO DAILY Patient Comments: blood pressure acetaminophen 500 MG tablet 500 - 1,000 mg PO Q6H PRN PRN (Reason: Mild/Moderate Pain) Patient Comments: mild pain omeprazole 20 MG capsule 20 mg PO DAILY Patient Comments: gerd fluticasone propionate 1 SPRAY spray,suspension 2 spray NASAL DAILY PRN (Reason: Allergies) Patient Comments: allergies cholecalciferol (vitamin D3) 2,000 UNIT capsule 2,000 unit PO DAILY aspirin 81 MG tablet 81 mg PO TUFR turmeric-turmeric root extract 1 EACH capsule 1 ea PO DAILY loratadine [Allergy Relief (loratadine)] 10 mg tablet 10 mg PO DAILY PreserVision AREDS 4,296 mcg-226 mg-90 mg capsule 1 cap PO DAILY ascorbic acid (vitamin C) [C-500] 500 mg tablet extended release 500 mg PO DAILY omega-3 fatty acids Capsule 1,000 mg PO DAILY calcium carbonate [Calcium 600] 600 mg calcium (1,500 mg) tablet 600 mg PO DAILY ondansetron 4 mg tablet,disintegrating 4 mg PO Q8H PRN (Reason: nausea and vomiting) 5 Days Qty: 10 0RF Patient Comments: No longer using Referrals / Follow Up: Isa Brizuela NP-C [Primary Care Provider] - Disposition Disposition (needs filled in before D/C Order can be placed): [facility] Facility
--- NOTE | 2024-10-04 09:57 | PHA.DC.MR.R ---
Pharmacy [facility] Reconciliation Pharmacy Service has performed discharge medication reconciliation for this patient. The patient's discharge medication list was reviewed for discrepancies and discrepancies were resolved. Medications at Discharge Home Medications acetaminophen 500 mg tablet 500 - 1,000 mg PO Q6H PRN PRN Mild/Moderate Pain 12/22/13 amlodipine 5 mg tablet 5 mg PO DAILY 12/22/13 enalapril maleate 20 mg tablet 20 mg PO BID 12/22/13 fluticasone propionate 50 mcg/actuation nasal spray,suspension 2 spray NASAL DAILY PRN Allergies 12/22/13 omeprazole 20 mg capsule,delayed release 20 mg PO DAILY 12/22/13 cholecalciferol (vitamin D3) 50 mcg (2,000 unit) capsule 2,000 unit PO DAILY 06/12/16 aspirin 81 mg tablet,delayed release 81 mg PO TUFR 10/15/17 turmeric 450 mg-turmeric root extract 50 mg capsule 1 ea PO DAILY 10/15/17 ascorbic acid 100 mg-zinc sulfate 200 mg tablet 1 tab PO DAILY 12/25/22 fluticasone fur. 100 mcg-umeclid 62.5 mcg-vilant 25 mcg inhalat.powder (Trelegy Ellipta) 1 inh inhalation DAILY 12/25/22 ascorbic acid (vitamin C) 500 mg tablet,extended release (C-500) 500 mg PO DAILY 02/16/23 loratadine 10 mg tablet (Allergy Relief (loratadine)) 10 mg PO DAILY 02/16/23 omega-3 fatty acids 1,000 mg PO DAILY 02/16/23 vitamins A,C,S-wkcn-mxstdp 4,296 mcg-226 mg-90 mg capsule (PreserVision AREDS) 1 cap PO DAILY 02/16/23 calcium carbonate (Calcium 600) 600 mg PO DAILY 01/14/24 ondansetron 4 mg disintegrating tablet 4 mg PO Q8H PRN nausea and vomiting 5 days #10 tabs 01/20/24
[2024-10-04] MEDS: Acetaminophen 500 MG Tablet PO (10:09)
--- NOTE | 2024-10-04 12:58 | CASEMGMT ---
Social Work Precert has been obtained.? Physician updated and pt is ready for discharge today.? SW met with pt and they are agreeable to discharge plan as stated above.? Bedside nurse notified of discharge. Disposition:TCU, skilled level of care GONZALEZ Zamorano
[2024-10-04 13:15] VITALS: PULSE 74; RESP 16
--- NOTE | 2024-10-04 13:56 | DS.PCM_ITS ---
Providers Date of Admission: 09/30/24 Primary Care Physician: Isa Brizuela, TOBACCO CLOTH RECLAIMER-C Reason For Visit: PELVIC FRACTURE Diagnosis Discharge Diagnosis (1) Closed fracture of left inferior pubic ramus: Status: Acute Code(s): S32.592A - Other specified fracture of left pubis, initial encounter for closed fracture (2) Closed fracture of left superior pubic ramus: Status: Acute Code(s): S32.512A - Fracture of superior rim of left pubis, initial encounter for closed fracture Plan 1. Closed left inferior pubic ramus fracture after mechanical fall ? PT/OT ? May need placement due to weakness and pain control ? She has no other fractures on imaging ? Still feels weak today, case management has been consulted for assistance with discharge planning 2. Essential HTN ? Continue with her home blood pressure medications ? Her blood pressures are currently stable ? Will monitor and make adjustments as necessary 3. COPD ? Not in exacerbation ? Continue with her home inhalers 4. GERD ? Stable ? Continue with PPI DVT: Lovenox Medications at Discharge Home Medications acetaminophen 500 mg tablet 500 - 1,000 mg PO Q6H PRN PRN Mild/Moderate Pain 12/22/13 amlodipine 5 mg tablet 5 mg PO DAILY 12/22/13 enalapril maleate 20 mg tablet 20 mg PO BID 12/22/13 fluticasone propionate 50 mcg/actuation nasal spray,suspension 2 spray NASAL DAILY PRN Allergies 12/22/13 omeprazole 20 mg capsule,delayed release 20 mg PO DAILY 12/22/13 cholecalciferol (vitamin D3) 50 mcg (2,000 unit) capsule 2,000 unit PO DAILY 06/12/16 aspirin 81 mg tablet,delayed release 81 mg PO TUFR 10/15/17 turmeric 450 mg-turmeric root extract 50 mg capsule 1 ea PO DAILY 10/15/17 ascorbic acid 100 mg-zinc sulfate 200 mg tablet 1 tab PO DAILY 12/25/22 fluticasone fur. 100 mcg-umeclid 62.5 mcg-vilant 25 mcg inhalat.powder (Trelegy Ellipta) 1 inh inhalation DAILY 12/25/22 ascorbic acid (vitamin C) 500 mg tablet,extended release (C-500) 500 mg PO DAILY 02/16/23 loratadine 10 mg tablet (Allergy Relief (loratadine)) 10 mg PO DAILY 02/16/23 omega-3 fatty acids 1,000 mg PO DAILY 02/16/23 vitamins A,C,D-tkhd-rgfqdl 4,296 mcg-226 mg-90 mg capsule (PreserVision AREDS) 1 cap PO DAILY 02/16/23 calcium carbonate (Calcium 600) 600 mg PO DAILY 01/14/24 ondansetron 4 mg disintegrating tablet 4 mg PO Q8H PRN nausea and vomiting 5 days #10 tabs 01/20/24 Hospital Course Operations None Procedures None Summary of Care Provided Minutes Spent on Discharge: 33 Hospital Course: Per HPI: BRANDIN MAY, is a 79 F with pmhx HTN, COPD, diet controlled DMt2, who presents to the ER with left hip pain. Pt was walking down a ramp today and hit a bump at the end of this ramp and fell forward to the ground. She struck the left side of her face, her left shoulder, and her left hip. Hip pain was most pronounced at the time - she was unable to get up until EMS arrived on scene. EMS was able to help her stand tho WB is painful in the left hip. She was not ambualted but sat on the cot and was brought to the ER. In the ER she had a CT brain which was negative for acute process. She had an xray of the left shoulder - negative for acute process. She had an xray of the left hip and pelvis showing nondisplaced fracture of the medial aspect of the left superior and inferior pubic rami. In the er she has minimal pain at rest (1/10 aching) left hip. However she could not pivot to stand up or walk in the ER. She does not feel comfortable returning home unable to walk and she is open to placement in a SNF. Hospital Course: 1. Close left inferior pubic rami fracture after mechanical fall?79-year-old female presented to the hospital after mechanical fall she was walking down a ramp and fell forward onto the ground, x-rays demonstrated a closed pubic ramus fracture on the left and she was having significant pain with ambulation. She also hit her left shoulder which is significantly arthritic which is causing a lot of pain. The pain in her pelvis and the pain in her shoulder have improved significantly however she still very weak and cannot ambulate on her own. She was evaluated by PT and OT who recommended placement. She was accepted to the transitional care unit today and I discussed with her the plan for discharge and she expressed understanding of the risks and benefits of going to the senior living and would like to go today. 2. Essential hypertension, COPD, GERD are all chronic medical conditions which complicate her care. Her home medications were continued where appropriate Physical Exam Narrative General: Alert, Oriented x3, Cooperative, No apparent distress HEENT: Atraumatic, PERRLA, EOMI, Normocephalic Oral: Moist Mucosa Neck: Supple, No JVD Lungs: Diminished, Normal air movement, No rhonchi, No wheeze, No rales Cardiovascular: Regular rate, Regular Rhythm, Normal S1, Normal S2, No murmurs Abdomen: Soft, Non Tender, Non-Distended, No Hepato-splenomegaly Extremities: No edema, Capillary Refill Less than 3 Seconds Skin: No rashes, No breakdown Musculoskeletal: No Tenderness to Palpation of Joints or Extremities Neurological: No focal neurological deficits, moves all extremities, sensation intact Psych/Mental Status: Normal Affect, Appropriate Weight / BMI Weight Weight: 237 lb 7.005 oz Body Mass Index (BMI) 42.0 ABG / Lab / Microbiology Data 10/02/24 05:55 10/02/24 05:55 D/C Instructions DC O2, CPAP, BIPAP Needs Home O2 Discharge instructions: No Meaningful Use Info Meaningful Use Meaningful Use Diagnoses (Choose all that apply): None applicable Ischemic Stroke Statin Dosing Therapy Reference: STATIN DOSE THERAPY REFERENCE: * Patients > 75 years receive moderate or high dose statin therapy. * Patients 75 years or YOUNGER should receive HIGH intensity statin dose unless contraindicated. You will be required to document reason for non-treatment if statin daily dose does not meet guidelines. HIGH DOSE STATIN THERAPY DAILY Atorvastatin > than or = to 40 mg Rosuvastatin > than or = to 20 mg Amlodipine + Atorvastatin > than or = to 2.5/40 mg Ezetimibe + Simvastatin 10/80 mg Simvastatin 80mg Discharge Plan Admission Admit Date/Time: 09/30/24 15:23 Attending Provider: Benitez Macias Primary Care Provider: Isa Brizuela Consulting Providers: Prashanth Vora Discharge Orders/Prescriptions Prescriptions: Continued ascorbic acid-zinc sulfate 200-100 mg tablet 1 tab PO DAILY Trelegy Ellipta 100-62.5-25 mcg blister with device 1 inh inhalation DAILY enalapril maleate 20 MG tablet 20 mg PO BID Patient Comments: blood pressure amlodipine 5 MG tablet 5 mg PO DAILY Patient Comments: blood pressure acetaminophen 500 MG tablet 500 - 1,000 mg PO Q6H PRN PRN (Reason: Mild/Moderate Pain) Patient Comments: mild pain omeprazole 20 MG capsule 20 mg PO DAILY Patient Comments: gerd fluticasone propionate 1 SPRAY spray,suspension 2 spray NASAL DAILY PRN (Reason: Allergies) Patient Comments: allergies cholecalciferol (vitamin D3) 2,000 UNIT capsule 2,000 unit PO DAILY aspirin 81 MG tablet 81 mg PO TUFR turmeric-turmeric root extract 1 EACH capsule 1 ea PO DAILY loratadine [Allergy Relief (loratadine)] 10 mg tablet 10 mg PO DAILY PreserVision AREDS 4,296 mcg-226 mg-90 mg capsule 1 cap PO DAILY ascorbic acid (vitamin C) [C-500] 500 mg tablet extended release 500 mg PO DAILY omega-3 fatty acids Capsule 1,000 mg PO DAILY calcium carbonate [Calcium 600] 600 mg calcium (1,500 mg) tablet 600 mg PO DAILY ondansetron 4 mg tablet,disintegrating 4 mg PO Q8H PRN (Reason: nausea and vomiting) 5 Days Qty: 10 0RF Patient Comments: No longer using Referrals / Follow Up: Isa Brizuela NP-C [Primary Care Provider] - Disposition Disposition (needs filled in before D/C Order can be placed): [facility] Charges/Coding Visit Charges Inpatient E&M: 71922 Disch Hosp >30min
== END 2024-10-04 14:42 | disposition skilled nursing facility (03) ==
LOC: ED 15:06 → MS3 15:56
PROVIDERS: Emergency Provider Emergency Medicine; PCP Nurse Practitioner Family; Visit Provider Family Medicine
DX: S32.82XA Multiple fractures of pelvis without disruption of pelvic ring, initial encounter for closed fracture (principal); H35.3290 Exudative age-related macular degeneration, unspecified eye, stage unspecified; J44.89 Other specified chronic obstructive pulmonary disease; E11.9 Type 2 diabetes mellitus without complications; S09.90XA Unspecified injury of head, initial encounter; S40.012A Contusion of left shoulder, initial encounter; K21.9 Gastro-esophageal reflux disease without esophagitis; W10.2XXA Fall (on)(from) incline, initial encounter; E78.00 Pure hypercholesterolemia, unspecified; I10 Essential (primary) hypertension; Z79.899 Other long term (current) drug therapy; Z79.51 Long term (current) use of inhaled steroids; Z79.82 Long term (current) use of aspirin
CPT/HCPCS: 36415; 70450; 73030; 73502; 80048; 82962; 85025; 94640; 96372; 97161; 97166; 97530; 97535; 99221; 99285; A4216; G0378

== ENCOUNTER 2024-10-04 14:43 | Inpatient (IN) | payer MEDICARE, SELFPAY ==
[2024-10-04 15:00] VITALS: BP 115/90; PULSE 76; RESP 18; TEMP 36.9; O2SAT 95; BMI 41.5
[2024-10-04] MEDS: Acetaminophen 500 MG Tablet 1000 MG PO (17:52)
[2024-10-04 20:40] VITALS: BP 111/65; PULSE 72; RESP 16
[2024-10-04] MEDS: Fluticasone/Salmeterol 232-14 Inhaler 1 PUFF INHALATION (20:42)
[2024-10-04] MEDS: Lisinopril 20 MG Tablet PO (20:44)
--- NOTE | 2024-10-04 21:05 | NURSING ---
PATIENT C/O LLE MUSCLE SPASMS, REQUESTS PRN MUSCLE RELAXER. DR. BONE CONTACTED VIA SECURE BACKLINE MESSAGE, NOTIFIED OF PATIENT REQUEST. NEW ORDER RECEIVED FOR FLEXERIL 10MG BY MOUTH EVERY 8 HOURS NEEDED FOR MUSCLE SPASMS, ORDER REPEATED BACK TO DR. BONE.
--- NOTE | 2024-10-04 21:17 | PCM.HP.STD ---
HPI - General General Date of Admission: 10/04/24 Date of Service: 10/04/24 Chief Complaint: Here for rehabilitation. HPI Narrative BRANDIN MAY, is a 79 Female who presents with followin09/30/2024 [facility] ED fall. Walking down ramp, toe caught on bump, fell. Hit left head, left shoulder, left hip, able to bear weight left hip. Left shoulder pain, slight headache. CT brain negative, X-ray left shoulder negative. X-ray pelvis, left hip showed left pelvis fracture. Oxycodone given, unable to walk. 09/30/2024 Admit [facility]. PT/OT/CM, pain control, left pelvis fracture. No surgery recommended for left pelvis fracture. 10/01/2024 Pelvic pain minimal, but left shoulder pain. PT/OT SNF. Blood pressure controlled. 10/02/2024 Left shoulder pain, X-ray showed arthritis, no fracture. PT/OT for SNF. 10/03/2204 Left shoulder pain improved, walked 40 feet contact guard with walker. Too weak to go home, PT/OT SNF. 10/04/2024 Admit to TCU with debility, here for rehabilitation, strengthening, prior to discharge home alone. [facility] Medical History Cardiology follow-up encounter History of high cholesterol History of hypertension History of hearing problem History of exudative age-related macular degeneration History of gallstones History of COPD History of cataract History of environmental allergies Trichilemmal cyst Skin infection Other acute postprocedural pain Wears dentures Wears glasses Post-menopausal Back pain Injury of head and neck History of hiatal hernia Gastric reflux Shortness of breath on exertion History of pain when walking History of edema History of stress test History of irregular heartbeat Hx of sebaceous cyst DM type 2, goal HbA1c < 7% Dysesthesia Mass of left thigh High cholesterol Hearing problem Gallstones COPD (chronic obstructive pulmonary disease) Bone fracture Arthritis Allergies Hypertension Non-smoker Hiatal hernia Asthma Hypertension Diabetes Home Medications ?Medication ?Instructions ?Recorded ?Last Taken ?Type acetaminophen 500 mg tablet 500 - 1,000 mg PO Q6H PRN PRN 12/22/13 Unknown History Mild/Moderate Pain amlodipine 5 mg tablet 5 mg PO DAILY BP 12/22/13 02/23/23 History enalapril maleate 20 mg tablet 20 mg PO BID BP 12/22/13 02/23/23 History fluticasone propionate 50 2 spray NASAL DAILY PRN Allergies 12/22/13 Unknown History mcg/actuation nasal spray,suspension omeprazole 20 mg capsule,delayed 20 mg PO DAILY acid reflux 12/22/13 02/23/23 History release cholecalciferol (vitamin D3) 50 2,000 unit PO DAILY supplement 06/12/16 02/22/23 History mcg (2,000 unit) capsule aspirin 81 mg tablet,delayed 81 mg PO TUFR blood thinner 10/15/17 01/08/24 History release turmeric 450 mg-turmeric root 1 ea PO DAILY supplement 10/15/17 02/22/23 History extract 50 mg capsule ascorbic acid 100 mg-zinc sulfate 1 tab PO DAILY supplement 12/25/22 02/22/23 History 200 mg tablet fluticasone fur. 100 mcg-umeclid 1 inh inhalation DAILY COPD 12/25/22 02/23/23 History 62.5 mcg-vilant 25 mcg inhalat.powder (Trelegy Ellipta) ascorbic acid (vitamin C) 500 mg 500 mg PO DAILY supplement 02/16/23 02/22/23 History tablet,extended release (C-500) loratadine 10 mg tablet (Allergy 10 mg PO DAILY allergies 02/16/23 02/22/23 History Relief (loratadine)) omega-3 fatty acids 1,000 mg PO DAILY supplement 02/16/23 02/22/23 History vitamins A,C,Q-ozhm-ncycsc 4,296 1 cap PO DAILY eye vitamin 02/16/23 02/22/23 History mcg-226 mg-90 mg capsule (PreserVision AREDS) calcium carbonate (Calcium 600) 600 mg PO DAILY supplement 01/14/24 Unknown History ondansetron 4 mg disintegrating 4 mg PO Q8H PRN nausea and 01/20/24 Unknown Rx tablet vomiting 5 days #10 tabs Allergy/AdvReac Type Severity Reaction Status Date / Time adhesive tape AdvReac REDNESS TO Verified 05/06/24 09:42 SKIN Yqlifbm-CRU-TmG Reductase AdvReac Other Verified 05/06/24 09:42 Inhibitor (Zvwtkfx-Hyv-Qhg Reductase Inhibitor) Family History Father Hypertension Heart disease CVA (cerebral vascular accident) Mother Raynauds disease Scleroderma Arthritis Surgical History History of cholecystectomy History of toe surgery History of appendectomy History of excision of mass Hx of tonsillectomy Hx of hammer toe correction Hx of repair of ear bone S/P appendectomy S/P cholecystectomy History of hysteroscopy H/O tubal ligation H/O total knee replacement Social History adopted: No household members: none housing: house number of children: 2 current occupational status: employed current occupation: [employer] Smoking Status: Never smoker alcohol intake: never substance use type: does not use seatbelt use: always do you feel safe at home: Yes additional social history: Does Take Aspirin Daily Does Take Ibuprofen As Needed ROS Constitutional Constitutional: Reports weakness; Denies chills, fever(s) or weight gain ENT HEENT: Denies headache(s), nasal congestion or nasal discharge Cardiovascular Cardiovascular: Denies chest pain or palpitations Respiratory/Chest Respiratory/Chest: Denies cough, excessive phlegm production or shortness of breath with exertion Gastrointestinal Gastrointestinal: Denies abdominal pain, nausea or vomiting Genitourinary Genitourinary: Denies dysuria Musculoskeletal Musculoskeletal: Denies joint pain or joint swelling Integumentary Integumentary: Denies rash or wounds Neurologic Neurologic: Denies focal weakness, numbness or tingling Psychiatric Psychiatric: Denies anxiety, auditory hallucinations, depression, homicidal ideation or suicidal ideation Vital Signs Vital Signs Vital Signs: 10/04/24 15:00 10/04/24 15:00 10/04/24 20:40 Temperature 98.5 F Temperature Source Temporal Pulse Rate 76 72 Pulse Rhythm Regular Pulse Strength Normal (2+) Respiratory Rate 18 16 Respiratory Effort Normal Non-Labored Respiratory Depth Normal Respiratory Pattern Normal Blood Pressure 115/90 H 111/65 Blood Pressure Mean 98 80 Blood Pressure Source Monitor Blood Pressure Position Semi-Fowlers Blood Pressure Location Right Arm Pulse Ox 95 Oxygen Delivery Method Room Air Room Air Weight Weight: 106.458 kg Body Mass Index (BMI) 41.5 Physical Exam Const alert General Appearance: cooperative HEENT normocephalic Eyes PERRL and EOMs intact bilaterally Neck supple, no JVD and no carotid bruits Resp normal respiratory effort, normal air movement and clear to auscultation bilaterally Cardio regular rate and regular rhythm GI normal to inspection, nondistended, normoactive bowel sounds, non-tender and non-distended Extremity normal capillary refill Extremity Narrative: Decreased abduction left shoulder. General Extremity: Negative for edema Skin no rashes or lesions noted General Skin Exam: no breakdown Psych affect normal Appearance: appropriate Assessment & Plan Assessment/Plan (1) Debility: (2) Fall: (3) Fracture of left pelvis: (4) Essential (primary) hypertension: (5) Allergic rhinitis: (6) GERD (gastroesophageal reflux disease): (7) Vitamin D deficiency: (8) COPD (chronic obstructive pulmonary disease): (9) Macular degeneration: PLAN: Plan 79 year old female with below past medical history hospitalized for fall, left pelvis fracture, non-surgical, admitted to TCU with debility, here for rehabilitation, strengthening, prior to discharge home alone. Debility - PT/OT. Pain - Tylenol 1000mg q6 prn. Bowel - senna/colace 1 tablet bid, Magnesium citrate 300mL daily prn. Adult immunization - Administer pneumonia vaccine, covid vaccine, flu vaccine as appropriate. DVT prophylaxis - hold, monitor. Hypertension - Lisinopril 20mg bid, Amlodipine 5mg daily. Vitamin C deficiency - Vitamin C 500mg daily. CV prophylaxis - Aspirin 81mg 2 days/week. Calcium deficiency - TUMS 500mg daily. Vitamin D deficiency - D3 50mcg daily. Muscle spasm - Flexeril 10mg q8 prn. Allergic rhinitis - Flonase 2 sprays daily prn, Loratadine 10mg daily. COPD - Fluticasone/salmeterol 232-14 1 puff q12, Incruse 1 puff daily. Indigestion - MOM 30mL daily prn. Macular degeneration - Healthy eyes 1 cap daily. Hyperlipidemia - [place] 3 1 gm daily. Nausea - Zofran 4mg q8 prn. GERD - Pantoprazole 20mg daily.
[2024-10-04] MEDS: cycloBENZAPRine HCl 10 MG Tablet PO (21:56)
[2024-10-05] MEDS: Acetaminophen 500 MG Tablet 1000 MG PO ×2 (00:05→06:37)
[2024-10-05 05:39] LABS: Absolute Lymphocyte Count 1.87 X10^3/uL (0.83-4.51); Absolute Neutrophil Count 4.7 X10^3/uL (2.0-7.7); Basophil# 0.06 X10^3/uL; Basophil% 0.8 % (0-1); Eosinophil# 0.25 X10^3/uL; Eosinophils% 3.3 % (0-5); Hematocrit 39.6 % (37-47); Hemoglobin 12.6 g/dL (12.0-15.0); Lymphocyte # 1.87 X10^3/ul (0.83-4.51); Lymphocyte % 24.3 % (19-41); Mean Corp Hgb Conc 31.8 g/dL (32-36); Mean Corpuscular Hgb 29.6 pg (27.0-32.0); Mean Platelet Vol. 10.1 fl (6.2-12.0); Monocyte# 0.81 X10^3/uL; Monocyte% 10.5 % (0-10); NRBC Flagged by Analyzer 0 % (0-5); Neutrophil # 4.67 X10^3/uL (2.7-7.7); Neutrophil % 60.7 % (47-70); Platelet Count 243 K/mm3 (150-450); RBC Distribution Width CV 14.1 % (11.6-14.6); Red Blood Count 4.26 M/mm3 (4.2-5.4); White Blood Count 7.7 K/mm3 (4.4-11.0)
[2024-10-05 06:39] LABS: Anion Gap 9 (5-15); BUN 50 mg/dL (4-19); BUN/Creat Ratio 41.3 RATIO (10-20); Calcium,Total 9.6 mg/dL (7.6-11.0); Carbon Dioxide 25.2 mmol/L (21.0-32.0); Chloride 105 mmol/L (98-108); EST Glomerular Filtration Rate 47 (>60); Estimated Creatinine Clearance 45.88 ml/min (50-250); Glucose 103 mg/dL (70-99); Potassium 5.2 mmol/L (3.3-5.1); Sodium Level 140 mmol/L (133-145)
--- NOTE | 2024-10-05 08:09 | PHA.CONS_ITS ---
Documented by User: Taylor Crocker 10/05/24 10:09 TCU RX Drug Regimen Review Subjective/Objective Subjective/Objective Subjective: TCU Admission. 79 YOF presented to the ER with a fall. Hospitalized for fall, left pelvis fracture, non-surgical. Admitted to TCU with debility for strengthening and rehabilitation. Objective: Allergies adhesive tape Adverse Reaction (Verified 05/06/24 09:42) REDNESS TO SKIN Snjkdfn-KOE-XxN Reductase Inhibitor (Pvvorvu-Plt-Hax Reductase Inhibitor) Adverse Reaction (Verified 05/06/24 09:42) Other Current Medications Generic Name Dose Route Start Last Admin Trade Name Freq PRN Reason Stop Dose Admin Acetaminophen 1,000 mg 10/04/24 14:55 10/05/24 06:37 Acetaminophen 500 Mg Tablet PO 1,000 mg Q6H PRN PRN Administration Pain Score 1-5 Amlodipine Besylate 5 mg 10/05/24 10:00 Amlodipine 5 Mg Tablet PO DAILY [facility] Protocol Ascorbic Acid 500 mg 10/05/24 10:00 Ascorbic Acid 500 Mg Tablet PO DAILY [facility] Aspirin 81 mg 10/07/24 08:00 Aspirin 81 Mg Tab.Chew PO TuFr@0800 [facility] Calcium Carbonate 500 mg 10/05/24 10:00 Calcium Carbonate 500 Mg Tablet PO DAILY [facility] Cholecalciferol 50 mcg 10/05/24 10:00 Cholecalciferol (Vit D3) 25 Mcg Tablet (1,000 Units) PO DAILY [facility] Cyclobenzaprine HCl 10 mg 10/04/24 21:03 10/04/24 21:56 Cyclobenzaprine Hcl 10 Mg Tablet PO 10 mg Q8H PRN PRN Administration MUSCLE SPASM Enoxaparin Sodium 40 mg 10/06/24 06:00 Enoxaparin 40 Mg/0.4 Ml Syringe SC DAILY@0600 [facility] Fluticasone Propionate 2 spray 10/04/24 14:55 Fluticasone 0.05% 1 [place] Nasal.Sry NASAL DAILY PRN Allergies Ibuprofen 200 mg 10/05/24 07:44 Ibuprofen 200 Mg Tablet PO Q6H PRN PRN Pain Score 6-10 Loratadine 10 mg 10/05/24 10:00 Loratadine 10 Mg Tablet PO DAILY [facility] Magnesium Citrate 300 ml 10/04/24 15:02 Magnesium Citrate 300 Ml PO X1 PRN Constipation Magnesium Hydroxide 30 ml 10/04/24 15:02 Magnesium Hydroxide 30 Ml Udc PO DAILY PRN PRN Constipation Multivitamins/Minerals 1 cap 10/05/24 10:00 Multivitamin (Healthy Eyes) Capsule PO DAILY [facility] Mtfoy-9-Uisp Ethyl Esters 1 gm 10/05/24 10:00 [place]-3 Acid Ethyl Esters 1 Gm Capsule PO DAILY [facility] Ondansetron HCl 4 mg 10/04/24 14:55 Ondansetron Odt 4 Mg Tablet PO Q8H PRN nausea and vomiting Pantoprazole Sodium 20 mg 10/05/24 10:00 Pantoprazole Sodium 20 Mg Tablet PO DAILY [facility] Fluticasone/Salmeterol 1 puff 10/04/24 22:00 10/04/24 20:42 Fluticasone/Salmeterol 232-14 Inhaler INHALATION 1 puff Q12 [facility] Administration Senna/Docusate Sodium 1 tablet 10/04/24 22:00 10/04/24 20:43 Senna/Docusate Sodium 1 Tablet PO Not Given BID [facility] Sodium Chloride 10 - 40 ml 10/04/24 15:12 0.9% Saline Lock 10 Ml Syringe IV UD PRN SALINE FLUSH Tuberculin PPD 0.1 ml 10/05/24 10:00 Tuberculin,Purif.Prot.Deriv. 50 Tu/Ml Vial ID 10/05/24 10:01 X1 ONE Tuberculin PPD 0.1 ml 10/12/24 10:00 Tuberculin,Purif.Prot.Deriv. 50 Tu/Ml Vial ID 10/12/24 10:01 X1 ONE Umeclidinium [place] 1 puff 10/05/24 10:00 Umeclidinium [place] Inhaler INHALATION DAILY [facility]
--- NOTE | 2024-10-05 08:09 | PCM.PN.DRR ---
Documented by User: Taylor Crocker 10/05/24 10:09 TCU RX Drug Regimen Review Subjective/Objective Subjective/Objective Subjective: TCU Admission. 79 YOF presented to the ER with a fall. Hospitalized for fall, left pelvis fracture, non-surgical. Admitted to TCU with debility for strengthening and rehabilitation. Objective: Allergies adhesive tape Adverse Reaction (Verified 05/06/24 09:42) REDNESS TO SKIN Pxzbdyp-BAS-RwB Reductase Inhibitor (Obqolod-Ysb-Kfx Reductase Inhibitor) Adverse Reaction (Verified 05/06/24 09:42) Other Current Medications Generic Name Dose Route Start Last Admin Trade Name Freq PRN Reason Stop Dose Admin Acetaminophen 1,000 mg 10/04/24 14:55 10/05/24 06:37 Acetaminophen 500 Mg Tablet PO 1,000 mg Q6H PRN PRN Administration Pain Score 1-5 Amlodipine Besylate 5 mg 10/05/24 10:00 Amlodipine 5 Mg Tablet PO DAILY [facility] Protocol Ascorbic Acid 500 mg 10/05/24 10:00 Ascorbic Acid 500 Mg Tablet PO DAILY [facility] Aspirin 81 mg 10/07/24 08:00 Aspirin 81 Mg Tab.Chew PO TuFr@0800 [facility] Calcium Carbonate 500 mg 10/05/24 10:00 Calcium Carbonate 500 Mg Tablet PO DAILY [facility] Cholecalciferol 50 mcg 10/05/24 10:00 Cholecalciferol (Vit D3) 25 Mcg Tablet (1,000 Units) PO DAILY [facility] Cyclobenzaprine HCl 10 mg 10/04/24 21:03 10/04/24 21:56 Cyclobenzaprine Hcl 10 Mg Tablet PO 10 mg Q8H PRN PRN Administration MUSCLE SPASM Enoxaparin Sodium 40 mg 10/06/24 06:00 Enoxaparin 40 Mg/0.4 Ml Syringe SC DAILY@0600 [facility] Fluticasone Propionate 2 spray 10/04/24 14:55 Fluticasone 0.05% 1 [place] Nasal.Sry NASAL DAILY PRN Allergies Ibuprofen 200 mg 10/05/24 07:44 Ibuprofen 200 Mg Tablet PO Q6H PRN PRN Pain Score 6-10 Loratadine 10 mg 10/05/24 10:00 Loratadine 10 Mg Tablet PO DAILY [facility] Magnesium Citrate 300 ml 10/04/24 15:02 Magnesium Citrate 300 Ml PO X1 PRN Constipation Magnesium Hydroxide 30 ml 10/04/24 15:02 Magnesium Hydroxide 30 Ml Udc PO DAILY PRN PRN Constipation Multivitamins/Minerals 1 cap 10/05/24 10:00 Multivitamin (Healthy Eyes) Capsule PO DAILY [facility] Xuyzg-2-Ajjq Ethyl Esters 1 gm 10/05/24 10:00 [place]-3 Acid Ethyl Esters 1 Gm Capsule PO DAILY [facility] Ondansetron HCl 4 mg 10/04/24 14:55 Ondansetron Odt 4 Mg Tablet PO Q8H PRN nausea and vomiting Pantoprazole Sodium 20 mg 10/05/24 10:00 Pantoprazole Sodium 20 Mg Tablet PO DAILY [facility] Fluticasone/Salmeterol 1 puff 10/04/24 22:00 10/04/24 20:42 Fluticasone/Salmeterol 232-14 Inhaler INHALATION 1 puff Q12 [facility] Administration Senna/Docusate Sodium 1 tablet 10/04/24 22:00 10/04/24 20:43 Senna/Docusate Sodium 1 Tablet PO Not Given BID [facility] Sodium Chloride 10 - 40 ml 10/04/24 15:12 0.9% Saline Lock 10 Ml Syringe IV UD PRN SALINE FLUSH Tuberculin PPD 0.1 ml 10/05/24 10:00 Tuberculin,Purif.Prot.Deriv. 50 Tu/Ml Vial ID 10/05/24 10:01 X1 ONE Tuberculin PPD 0.1 ml 10/12/24 10:00 Tuberculin,Purif.Prot.Deriv. 50 Tu/Ml Vial ID 10/12/24 10:01 X1 ONE Umeclidinium [place] 1 puff 10/05/24 10:00 Umeclidinium [place] Inhaler INHALATION DAILY [facility] Problem List Macular degeneration (Acute) Vitamin D deficiency (Acute) GERD (gastroesophageal reflux disease) (Acute) Allergic rhinitis (Acute) Essential (primary) hypertension (Acute) Fracture of left pelvis (Acute) Debility (Acute) Fall (Acute) COPD (chronic obstructive pulmonary disease) (Chronic) Vital Signs Temp Pulse Resp BP Pulse Ox O2 Del Method 98.5 F 72 16 111/65 95 Room Air 10/04/24 15:00 10/04/24 20:40 10/04/24 20:40 10/04/24 20:40 10/04/24 15:00 10/04/24 15:00 Oxygen Delivery Method Room Air Weight: 106.458 kg Body Mass Index (BMI) 41.5 Sodium 140 mmol/L (133-145) 10/05/24 05:24 Potassium 5.2 mmol/L (3.3-5.1) H 10/05/24 05:24 Chloride 105 mmol/L (98-108) 10/05/24 05:24 Carbon Dioxide 25.2 mmol/L (21.0-32.0) 10/05/24 05:24 Anion Gap 9 (5-15) 10/05/24 05:24 BUN 50 mg/dL (4-19) H 10/05/24 05:24 Creatinine 1.20 mg/dL (0.70-1.20) 10/05/24 05:24 Est GFR (MDRD) Non-Af 47 (>60) L 10/05/24 05:24 BUN/Creatinine Ratio 41.3 RATIO (10-20) H 10/05/24 05:24 Glucose 103 mg/dL (70-99) H 10/05/24 05:24 Assessment/Plan: 1. Pain: acetaminophen 1000mg PO Q6H PRN pain 1-5 and ibuprofen 200mg PO Q6H PRN pain 6-10. Resident has had 3 doses of acetaminophen for pain scores of 1/3/5 in the hip/LLE. No doses of ibuprofen yet. Please continue to monitor for increased pain, PRN usage. 2. Bowel: senna/docusate 1T PO BID, MOM 30mL PO daily PRN constipation and magnesium citrate 300mL PO daily PRN constipation. No PRN doses given. Please continue to monitor for PRN usage and constipation. Last documented bowel movement was 09/30/24. 3. DVT prophylaxis: enoxaparin 40mg SC daily. Please continue to monitor for S/S of bleeding/DVT, renal function, hemoglobin (last 12.6g/dL) and platelets (last 243,000). 4. Hypertension: amlodipine 5mg PO daily. Please continue to monitor BP (last 111/65) and swelling. 5. CV prophylaxis: aspirin 81mg PO Thursday and Thursday. Please continue to monitor for S/S of bleeding/bruising, hemoglobin (last 12.6g/dL). 6. COPD: fluticasone/salmeterol 232/14mcg 1 puff Q12 and Incruse 1 puff daily. Please continue to monitor HR (last 72), SOB, wheezing, thrush. Please rinse mouth with water and spit following fluticasone/salmeterol administration to prevent thrush. 7. Allergic rhinitis: loratadine 10mg PO daily and fluticasone 0.05% nasal spray 2 sprays daily PRN allergies. No PRN doses given. Please continue to monitor for allergy symptoms, renal function and PRN usage. 8. Muscle spasm: cyclobenzaprine 10mg PO Q8 PRN muscle spasms. Resident has had 1 dose so far. Please continue to monitor for muscle spasms, PRN usage, drowsiness and dizziness. 9. Hyperlipidemia: omega-3 fatty acid 1000mg PO daily. Please consider ordering a lipid panel as there is no panel in the chart. Thanks. 10. GERD: pantoprazole 20mg PO daily. Please continue to monitor for S/S of GERD and diarrhea (BEERs). 11. Nausea: ondansetron 4mg PO Q8H PRN nausea and vomiting. No PRN doses have been given. Please continue to monitor for PRN usage and nausea. 12. Macular degeneration and calcium/vitamin D/vitamin C deficiencies: ascorbic acid 500mg PO daily, calcium carbonate 500mg PO daily, cholecalciferol 50mcg PO daily and healthy eyes 1C PO daily. Please continue to monitor calcium (last 9.6mg/dL). Please consider ordering a vitamin D level as the last is from 2011. Thanks. Assessment/Plan for indications treated with psychotropic medications: Resident is not prescribed scheduled or prn psychotropic medications at the time of this drug regimen review. Medical chart and medication regimen reviewed. The following medication irregularities or issues were identified: 1. [place]-3 fatty acid 1000mg PO daily. Please consider ordering a lipid panel as there is no panel in the chart. Thanks. 2. Cholecalciferol 50mcg PO daily. Please consider ordering a vitamin D level as the last is from 2011. Thanks. Date Date of Note: 10/05/24 Documented by User: Dr. Ck Matthews MD 10/05/24 10:25 TCU RX Drug Regimen Review Provider Comments Provider responsibility Provider Comments to Recommendations by Pharmacy Agree
[2024-10-05 08:34] VITALS: BP 113/52; PULSE 72; RESP 18; TEMP 36.9; O2SAT 96
[2024-10-05] MEDS: Sodium Polystyrene Sulfonate 15 GM/60 ML UDC 30 GM PO (08:36)
[2024-10-05] MEDS: Umeclidinium Bromide Inhaler 1 PUFF INHALATION (08:38)
[2024-10-05] MEDS: Loratadine 10 MG Tablet PO (08:40)
[2024-10-05] MEDS: Fluticasone/Salmeterol 232-14 Inhaler 1 PUFF INHALATION ×2 (08:40→22:26)
[2024-10-05] MEDS: Ibuprofen 200 MG Tablet PO ×3 (08:40→22:26)
[2024-10-05] MEDS: Cholecalciferol (VIT D3) 25 MCG TABLET (1,000 UNITS) 50 MCG PO (08:40)
[2024-10-05] MEDS: amLODIPine 5 MG Tablet PO (08:41)
[2024-10-05] MEDS: Omega-3 Acid Ethyl Esters 1 GM Capsule PO (08:41)
[2024-10-05] MEDS: Calcium Carbonate 500 MG Tablet PO (08:41)
[2024-10-05] MEDS: Pantoprazole Sodium 20 MG Tablet PO (08:41)
[2024-10-05] MEDS: Ascorbic Acid 500 MG Tablet PO (08:41)
[2024-10-05] MEDS: Senna/Docusate Sodium 1 Tablet PO ×2 (08:41→22:26)
[2024-10-05] MEDS: Multivitamin (Healthy Eyes) Capsule 1 CAP PO (08:42)
[2024-10-05] MEDS: Tuberculin,Purif.prot.deriv. 50 TU/ML Vial 0.1 ML ID (12:12)
[2024-10-05] MEDS: 0.9% Saline Lock 10 ML Syringe IV (12:12)
[2024-10-06] MEDS: Ibuprofen 200 MG Tablet PO ×3 (05:28→18:35)
[2024-10-06] MEDS: Enoxaparin 40 MG/0.4 ML Syringe SC (05:29)
[2024-10-06] MEDS: 0.9% Saline Lock 10 ML Syringe IV ×3 (05:31→21:45)
[2024-10-06 06:39] LABS: Anion Gap 10 (5-15); BUN 40 mg/dL (4-19); BUN/Creat Ratio 39.9 RATIO (10-20); Calcium,Total 9.5 mg/dL (7.6-11.0); Carbon Dioxide 26.6 mmol/L (21.0-32.0); Chloride 105 mmol/L (98-108); Cholesterol 190 mg/dL (<=200); EST Glomerular Filtration Rate 58 (>60); Estimated Creatinine Clearance 55.05 ml/min (50-250); Glucose 102 mg/dL (70-99); High Density Lipoprotein 65 mg/dL; Low Density Lipoprotein Calc. 113 mg/dL; Potassium 4.3 mmol/L (3.3-5.1); Sodium Level 141 mmol/L (133-145); Triglycerides 64 mg/dL; Very Low Density Lipoprotein 13 mg/dL (5-40); Vitamin D,25 Hydroxy 59.2 ng/mL (30-100); cholesterol:hdl ratio screen 2.94
[2024-10-06 08:52] VITALS: BP 129/58; PULSE 73; RESP 17; TEMP 36.8; O2SAT 98
[2024-10-06] MEDS: Loratadine 10 MG Tablet PO (08:56)
[2024-10-06] MEDS: Multivitamin (Healthy Eyes) Capsule 1 CAP PO (08:57)
[2024-10-06] MEDS: Fluticasone/Salmeterol 232-14 Inhaler 1 PUFF INHALATION ×2 (08:57→21:41)
[2024-10-06] MEDS: Umeclidinium Bromide Inhaler 1 PUFF INHALATION (08:57)
[2024-10-06] MEDS: Omega-3 Acid Ethyl Esters 1 GM Capsule PO (08:57)
[2024-10-06] MEDS: amLODIPine 5 MG Tablet PO (08:58)
[2024-10-06] MEDS: Cholecalciferol (VIT D3) 25 MCG TABLET (1,000 UNITS) 50 MCG PO (08:59)
[2024-10-06] MEDS: Calcium Carbonate 500 MG Tablet PO (08:59)
[2024-10-06] MEDS: Ascorbic Acid 500 MG Tablet PO (08:59)
[2024-10-06] MEDS: Pantoprazole Sodium 40 MG Tablet PO (09:10)
[2024-10-06 10:00] VITALS: RESP 17
[2024-10-06] MEDS: Acetaminophen 500 MG Tablet 1000 MG PO (13:41)
--- NOTE | 2024-10-06 17:15 | CASEMGMT ---
Social Work SW met with patient to complete initial assessment. Introduced self and role. Verified contacts. Patient confirmed code status as full code. Educated to [employer] insurance and continued stay not being guaranteed with each review. Patients goal is to return home. SW will continue to follow for DC planning. Malu Saunders, JUNIOR ACCOUNTANT, IRONMOLDER
[2024-10-07] MEDS: Ibuprofen 200 MG Tablet PO ×5 (00:10→23:00)
[2024-10-07] MEDS: Enoxaparin 40 MG/0.4 ML Syringe SC (05:34)
[2024-10-07 06:14] LABS: Anion Gap 12 (5-15); BUN 40 mg/dL (4-19); BUN/Creat Ratio 39.6 RATIO (10-20); Calcium,Total 9.4 mg/dL (7.6-11.0); Carbon Dioxide 23.7 mmol/L (21.0-32.0); Chloride 105 mmol/L (98-108); EST Glomerular Filtration Rate 58 (>60); Estimated Creatinine Clearance 55.05 ml/min (50-250); Glucose 97 mg/dL (70-99); Potassium 4.1 mmol/L (3.3-5.1); Sodium Level 141 mmol/L (133-145)
[2024-10-07 09:04] VITALS: BP 116/68; PULSE 76; RESP 18; TEMP 36.7; O2SAT 96
[2024-10-07] MEDS: Aspirin 81 MG TAB.CHEW PO (09:07)
[2024-10-07] MEDS: amLODIPine 5 MG Tablet PO (09:08)
[2024-10-07] MEDS: Fluticasone/Salmeterol 232-14 Inhaler 1 PUFF INHALATION ×2 (09:08→22:59)
[2024-10-07] MEDS: Loratadine 10 MG Tablet PO (09:08)
[2024-10-07] MEDS: Omega-3 Acid Ethyl Esters 1 GM Capsule PO (09:08)
[2024-10-07] MEDS: Umeclidinium Bromide Inhaler 1 PUFF INHALATION (09:08)
[2024-10-07] MEDS: Multivitamin (Healthy Eyes) Capsule 1 CAP PO (09:08)
[2024-10-07] MEDS: Calcium Carbonate 500 MG Tablet PO (09:09)
[2024-10-07] MEDS: Cholecalciferol (VIT D3) 25 MCG TABLET (1,000 UNITS) 50 MCG PO (09:09)
[2024-10-07] MEDS: Ascorbic Acid 500 MG Tablet PO (09:09)
[2024-10-07] MEDS: Pantoprazole Sodium 40 MG Tablet PO (09:09)
[2024-10-07] MEDS: Acetaminophen 500 MG Tablet 1000 MG PO ×2 (09:13→16:15)
--- NOTE | 2024-10-07 10:15 | NURSING ---
Family Resource Management Specialist Note; Activity Asset: Blank Ramirez is independent in her choice of daily activities. She has her knitting , books , bible and was given [employer] puzzles. Ashley enjoys bible study and has a knitting group and they donate to the center. Staff will encourage group activities, remind her of weekly activities and respect her right to say no.
--- NOTE | 2024-10-07 15:18 | CHAPLAIN ---
Type of Pastoral Visit _x__ Initial Visit ___ Follow-up Visit ___ On-call Visit ___ General Patient Visit ___ Spiritual Assessment ___ Family Conference ___ Bereavement ___ Rapid Response ___ Code Blue ___ Other (describe below) Pastoral Care Referral From _x__ Patient ___ Family ___ Nurse ___ Physician ___ Employment Officer ___ Milk Delivery Driver ___ Other (describe below) Sacrament/Intervention _x__ Active listening ___ Anointing ___ Church ___ Bereavement ___ Communion _x__ Rowan exploration ___ _x__ Life review _x__ Prayer ___ Reconciliation ___ Sacrament of Sick ___ Supportive presence ___ Wedding ___ Other (describe below) Pastoral Comments patient is welcoming and talkative; pt gives some life review and 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
[2024-10-07 20:14] VITALS: RESP 16
[2024-10-08 04:15] VITALS: RESP 16
[2024-10-08] MEDS: Acetaminophen 500 MG Tablet 1000 MG PO ×3 (04:18→20:26)
[2024-10-08] MEDS: Ibuprofen 200 MG Tablet PO ×3 (06:13→17:50)
[2024-10-08] MEDS: Enoxaparin 40 MG/0.4 ML Syringe SC (06:13)
[2024-10-08 06:43] LABS: Anion Gap 9 (5-15); BUN 36 mg/dL (4-19); BUN/Creat Ratio 34.7 RATIO (10-20); Calcium,Total 9.6 mg/dL (7.6-11.0); Carbon Dioxide 27.1 mmol/L (21.0-32.0); Chloride 107 mmol/L (98-108); Creatinine, Serum 1.05 mg/dL (0.70-1.20); EST Glomerular Filtration Rate 55 (>60); Estimated Creatinine Clearance 52.43 ml/min (50-250); Glucose 99 mg/dL (70-99); Potassium 4.5 mmol/L (3.3-5.1); Sodium Level 143 mmol/L (133-145)
[2024-10-08 09:57] VITALS: BP 116/57; PULSE 65; RESP 18; TEMP 36.4; O2SAT 96
[2024-10-08] MEDS: Loratadine 10 MG Tablet PO (10:01)
[2024-10-08] MEDS: Multivitamin (Healthy Eyes) Capsule 1 CAP PO (10:01)
[2024-10-08] MEDS: Umeclidinium Bromide Inhaler 1 PUFF INHALATION (10:01)
[2024-10-08] MEDS: Omega-3 Acid Ethyl Esters 1 GM Capsule PO (10:01)
[2024-10-08] MEDS: Fluticasone/Salmeterol 232-14 Inhaler 1 PUFF INHALATION ×2 (10:01→20:26)
[2024-10-08] MEDS: Ascorbic Acid 500 MG Tablet PO (10:02)
[2024-10-08] MEDS: Calcium Carbonate 500 MG Tablet PO (10:02)
[2024-10-08] MEDS: Pantoprazole Sodium 40 MG Tablet PO (10:02)
[2024-10-08] MEDS: Cholecalciferol (VIT D3) 25 MCG TABLET (1,000 UNITS) 50 MCG PO (10:02)
[2024-10-08] MEDS: amLODIPine 5 MG Tablet PO (10:02)
[2024-10-09] MEDS: Ibuprofen 200 MG Tablet PO ×5 (00:23→23:33)
[2024-10-09] MEDS: Enoxaparin 40 MG/0.4 ML Syringe SC (05:31)
[2024-10-09] MEDS: Multivitamin (Healthy Eyes) Capsule 1 CAP PO (09:58)
[2024-10-09] MEDS: Loratadine 10 MG Tablet PO (09:58)
[2024-10-09] MEDS: Cholecalciferol (VIT D3) 25 MCG TABLET (1,000 UNITS) 50 MCG PO (09:59)
[2024-10-09] MEDS: Umeclidinium Bromide Inhaler 1 PUFF INHALATION (09:59)
[2024-10-09] MEDS: Omega-3 Acid Ethyl Esters 1 GM Capsule PO (09:59)
[2024-10-09] MEDS: amLODIPine 5 MG Tablet PO (09:59)
[2024-10-09] MEDS: Calcium Carbonate 500 MG Tablet PO (09:59)
[2024-10-09] MEDS: Ascorbic Acid 500 MG Tablet PO (09:59)
[2024-10-09] MEDS: Pantoprazole Sodium 40 MG Tablet PO (09:59)
[2024-10-09] MEDS: Fluticasone/Salmeterol 232-14 Inhaler 1 PUFF INHALATION ×2 (10:00→19:56)
[2024-10-09 12:51] VITALS: BP 127/66; PULSE 60; RESP 14; TEMP 36.6; O2SAT 98
[2024-10-09] MEDS: Acetaminophen 500 MG Tablet 1000 MG PO (14:54)
[2024-10-10] MEDS: Ibuprofen 200 MG Tablet PO ×4 (05:53→23:53)
[2024-10-10] MEDS: Enoxaparin 40 MG/0.4 ML Syringe SC (05:54)
[2024-10-10 06:54] VITALS: PULSE 64; RESP 16; O2SAT 95
[2024-10-10] MEDS: Acetaminophen 500 MG Tablet 1000 MG PO (09:37)
[2024-10-10] MEDS: Pantoprazole Sodium 40 MG Tablet PO (10:42)
[2024-10-10] MEDS: Cholecalciferol (VIT D3) 25 MCG TABLET (1,000 UNITS) 50 MCG PO (10:42)
[2024-10-10] MEDS: amLODIPine 5 MG Tablet PO (10:42)
[2024-10-10] MEDS: Loratadine 10 MG Tablet PO (10:42)
[2024-10-10] MEDS: Calcium Carbonate 500 MG Tablet PO (10:42)
[2024-10-10] MEDS: Multivitamin (Healthy Eyes) Capsule 1 CAP PO (10:42)
[2024-10-10] MEDS: Umeclidinium Bromide Inhaler 1 PUFF INHALATION (10:42)
[2024-10-10] MEDS: Omega-3 Acid Ethyl Esters 1 GM Capsule PO (10:42)
[2024-10-10] MEDS: Fluticasone/Salmeterol 232-14 Inhaler 1 PUFF INHALATION ×2 (10:43→21:22)
[2024-10-10] MEDS: Ascorbic Acid 500 MG Tablet PO (10:43)
[2024-10-10 10:46] VITALS: BP 115/70; PULSE 62; RESP 14; TEMP 36.5; O2SAT 96
--- NOTE | 2024-10-10 11:37 | NURSING ---
Offered covid vaccine, VIS provided. Resident declined.
--- NOTE | 2024-10-10 16:07 | CASEMGMT ---
Addendum entered by Mica Nichols 10/11/24 13:51: [facility] can accept with SOC 10/17 Original Note: Social Work Insurance issued LCD 10/12, DC 10/13 - SW spoke with pt at bedside to inform her of DC date. SW provided NOM[facility] to pt and educated to appeal rights. Pt verbalized understanding and requested to call dtr. SW agreed. Dtr included via conference call and inquired about DC 10/14. SW educated to pt is able to stay longer, but at a private pay rate, unless pt elects to appeal and wins. Pt and dtr denied right to appeal and will make it work to DC on 10/13. SW educated to skilled HHC vs OP therapy. Pt prefers HHC. SW provided list of skilled HHC agencies within geographical area, INN with insurance, that include quality and resource data via [employer] guide. [facility] SW educated HHC agency will contact pt for SOC date date, but typically 2-3 days after DC, pending PCP signing orders. Pt denied any DME needs. Dtr to transport at [place]. - [place] phoned referral to [facility] for PT/OT Plan: DC home 10/13, [facility] PT/OT Mica Nichols WATER MAINTENANCE SUPERVISOR INDUSTRIAL TRAINING SPECIALIST
--- NOTE | 2024-10-10 16:18 | CASEMGMT ---
Social Work SW completed BIMS () and PHQ-2 () for MDS assessment. Mica Nichols BANK PRESIDENT HOSIERY BAGGER
--- NOTE | 2024-10-10 19:24 | PCM.DC.SUM ---
Providers Date of Admission: 10/04/24 Primary Care Physician: Isa Brizuela, BANK TELLER MACHINE MECHANIC-C Reason For Visit: PELVIC FRACTURE Diagnosis Discharge Diagnosis (1) Debility: Status: Acute Code(s): R53.81 - Other malaise (2) Fall: Status: Acute Code(s): W19.XXXA - Unspecified fall, initial encounter (3) Fracture of left pelvis: Status: Acute Code(s): S32.9XXA - Fracture of unspecified parts of lumbosacral spine and pelvis, initial encounter for closed fracture (4) Essential (primary) hypertension: Status: Acute Code(s): I10 - Essential (primary) hypertension (5) Allergic rhinitis: Status: Acute Code(s): J30.9 - Allergic rhinitis, unspecified (6) GERD (gastroesophageal reflux disease): Status: Acute Code(s): K21.9 - Gastro-esophageal reflux disease without esophagitis (7) Vitamin D deficiency: Status: Acute Code(s): E55.9 - Vitamin D deficiency, unspecified (8) COPD (chronic obstructive pulmonary disease): Status: Chronic Code(s): J44.9 - Chronic obstructive pulmonary disease, unspecified (9) Macular degeneration: Status: Acute Code(s): H35.30 - Unspecified macular degeneration Plan 79 year old female with below past medical history hospitalized for fall, left pelvis fracture, non-surgical, admitted to TCU with debility, here for rehabilitation, strengthening, prior to discharge home alone. Debility - PT/OT. Pain - Tylenol 1000mg q6 prn. Bowel - senna/colace 1 tablet bid, Magnesium citrate 300mL daily prn. Adult immunization - Administer pneumonia vaccine, covid vaccine, flu vaccine as appropriate. DVT prophylaxis - hold, monitor. Hypertension - Lisinopril 20mg bid, Amlodipine 5mg daily. Vitamin C deficiency - Vitamin C 500mg daily. CV prophylaxis - Aspirin 81mg 2 days/week. Calcium deficiency - TUMS 500mg daily. Vitamin D deficiency - D3 50mcg daily. Muscle spasm - Flexeril 10mg q8 prn. Allergic rhinitis - Flonase 2 sprays daily prn, Loratadine 10mg daily. COPD - Fluticasone/salmeterol 232-14 1 puff q12, Incruse 1 puff daily. Indigestion - MOM 30mL daily prn. Macular degeneration - Healthy eyes 1 cap daily. Hyperlipidemia - Bally 3 1 gm daily. Nausea - Zofran 4mg q8 prn. GERD - Pantoprazole 20mg daily. Medications at Discharge Home Medications amlodipine 5 mg tablet 5 mg PO DAILY BP 12/22/13 fluticasone propionate 50 mcg/actuation nasal spray,suspension 2 spray NASAL DAILY PRN Allergies 12/22/13 omeprazole 20 mg capsule,delayed release 20 mg PO DAILY acid reflux 12/22/13 cholecalciferol (vitamin D3) 50 mcg (2,000 unit) capsule 2,000 unit PO DAILY supplement 06/12/16 aspirin 81 mg tablet,delayed release 81 mg PO TUFR blood thinner 10/15/17 turmeric 450 mg-turmeric root extract 50 mg capsule 1 ea PO DAILY supplement 10/15/17 fluticasone fur. 100 mcg-umeclid 62.5 mcg-vilant 25 mcg inhalat.powder (Trelegy Ellipta) 1 inh inhalation DAILY COPD 12/25/22 ascorbic acid (vitamin C) 500 mg tablet,extended release (C-500) 500 mg PO DAILY supplement 02/16/23 loratadine 10 mg tablet (Allergy Relief (loratadine)) 10 mg PO DAILY allergies 02/16/23 omega-3 fatty acids 1,000 mg PO DAILY supplement 02/16/23 vitamins A,C,M-fjtm-nijgzv 4,296 mcg-226 mg-90 mg capsule (PreserVision AREDS) 1 cap PO DAILY eye vitamin 02/16/23 calcium carbonate (Calcium 600) 600 mg PO DAILY supplement 01/14/24 acetaminophen 500 mg tablet 1,000 mg (2 x 500 mg) PO Q6H PRN PRN Pain Score 1-5 #0 tabs 10/10/24 cyclobenzaprine 10 mg tablet 10 mg PO Q8H PRN PRN Muscle Spasm 30 days #90 tabs 10/10/24 Hospital Course Operations None Procedures None Summary of Care Provided Minutes Spent on Discharge: 35 Hospital Course: 79 year old female with below past medical history hospitalized for fall, left pelvis fracture, non-surgical, admitted to TCU with debility, here for rehabilitation, strengthening, prior to discharge home alone. Discharge home 10/13/2024, [facility] PT/OT. Physical Exam Const alert General Appearance: cooperative HEENT normocephalic Eyes PERRL and EOMs intact bilaterally Neck supple, no JVD and no carotid bruits Resp normal respiratory effort, normal air movement and clear to auscultation bilaterally Cardio regular rate and regular rhythm GI normal to inspection, nondistended, normoactive bowel sounds, non-tender and non-distended Extremity normal capillary refill General Extremity: Negative for edema Skin no rashes or lesions noted General Skin Exam: no breakdown Psych affect normal Appearance: appropriate Weight / BMI Weight Weight: 106.458 kg Body Mass Index (BMI) 41.5 ABG / Lab / Microbiology Data 10/05/24 05:24 10/08/24 05:05 D/C Instructions Discharge Diet: No restrictions Discharge Activity: Return to Normal Activity, May Shower and Use Walker Weight Bearing Status: Weight bearing as tolerated Call your doctor if you observe: Fever of 101 or Higher, Inability to urinate, Inability to have a bowel movement, Shortness of breath, Dizziness, Fainting spells, Swelling in the ankles, Chest pain and Uncontrolled pain DC O2, CPAP, BIPAP Needs Home O2 Discharge instructions: No Additional Instructions: Discharge home 10/13/2024, [facility] PT/OT Meaningful Use Info Meaningful Use Meaningful Use Diagnoses (Choose all that apply): None applicable Ischemic Stroke Statin Dosing Therapy Reference: STATIN DOSE THERAPY REFERENCE: * Patients > 75 years receive moderate or high dose statin therapy. * Patients 75 years or YOUNGER should receive HIGH intensity statin dose unless contraindicated. You will be required to document reason for non-treatment if statin daily dose does not meet guidelines. HIGH DOSE STATIN THERAPY DAILY Atorvastatin > than or = to 40 mg Rosuvastatin > than or = to 20 mg Amlodipine + Atorvastatin > than or = to 2.5/40 mg Ezetimibe + Simvastatin 10/80 mg Simvastatin 80mg Discharge Plan Admission Admit Date/Time: 10/04/24 14:43 Primary Reason for Your Visit: Debility. Attending Provider: Ck Matthews Chi Primary Care Provider: Isa Brizuela Instructions Additional Instructions / Restrictions: Discharge home 10/13/2024, [facility] PT/OT Discharge Orders/Prescriptions Prescriptions: New cyclobenzaprine 10 mg Tablet 10 mg PO Q8H PRN PRN (Reason: Muscle Spasm) 30 Days Qty: 90 0RF acetaminophen 500 mg Tablet 1,000 mg PO Q6H PRN PRN (Reason: Pain Score 1-5) Qty: 0 0RF Continued Trelegy Ellipta 100-62.5-25 mcg blister with device 1 inh inhalation DAILY amlodipine 5 MG tablet 5 mg PO DAILY Patient Comments: blood pressure omeprazole 20 MG capsule 20 mg PO DAILY Patient Comments: gerd fluticasone propionate 1 SPRAY spray,suspension 2 spray NASAL DAILY PRN (Reason: Allergies) Patient Comments: allergies cholecalciferol (vitamin D3) 2,000 UNIT capsule 2,000 unit PO DAILY aspirin 81 MG tablet 81 mg PO TUFR turmeric-turmeric root extract 1 EACH capsule 1 ea PO DAILY loratadine [Allergy Relief (loratadine)] 10 mg tablet 10 mg PO DAILY PreserVision AREDS 4,296 mcg-226 mg-90 mg capsule 1 cap PO DAILY ascorbic acid (vitamin C) [C-500] 500 mg tablet extended release 500 mg PO DAILY omega-3 fatty acids Capsule 1,000 mg PO DAILY calcium carbonate [Calcium 600] 600 mg calcium (1,500 mg) tablet 600 mg PO DAILY Discontinued ascorbic acid-zinc sulfate 200-100 mg tablet 1 tab PO DAILY enalapril maleate 20 MG tablet 20 mg PO BID Patient Comments: blood pressure acetaminophen 500 MG tablet 500 - 1,000 mg PO Q6H PRN PRN (Reason: Mild/Moderate Pain) Patient Comments: mild pain ondansetron 4 mg tablet,disintegrating 4 mg PO Q8H PRN (Reason: nausea and vomiting) 5 Days Qty: 10 0RF Patient Comments: No longer using Referrals / Follow Up: Isa Brizuela NP-C [Primary Care Provider] - Disposition Disposition (needs filled in before D/C Order can be placed): Home Health Service
[2024-10-11] MEDS: Enoxaparin 40 MG/0.4 ML Syringe SC (06:18)
[2024-10-11] MEDS: Ibuprofen 200 MG Tablet PO ×4 (06:21→23:05)
[2024-10-11] MEDS: Aspirin 81 MG TAB.CHEW PO (09:20)
[2024-10-11] MEDS: Pantoprazole Sodium 40 MG Tablet PO (09:20)
[2024-10-11] MEDS: Multivitamin (Healthy Eyes) Capsule 1 CAP PO (09:20)
[2024-10-11] MEDS: Calcium Carbonate 500 MG Tablet PO (09:20)
[2024-10-11] MEDS: Acetaminophen 500 MG Tablet 1000 MG PO (09:20)
[2024-10-11] MEDS: amLODIPine 5 MG Tablet PO (09:20)
[2024-10-11] MEDS: Ascorbic Acid 500 MG Tablet PO (09:20)
[2024-10-11] MEDS: Cholecalciferol (VIT D3) 25 MCG TABLET (1,000 UNITS) 50 MCG PO (09:20)
[2024-10-11] MEDS: Umeclidinium Bromide Inhaler 1 PUFF INHALATION (09:20)
[2024-10-11] MEDS: Loratadine 10 MG Tablet PO (09:20)
[2024-10-11] MEDS: Omega-3 Acid Ethyl Esters 1 GM Capsule PO (09:20)
[2024-10-11] MEDS: Fluticasone/Salmeterol 232-14 Inhaler 1 PUFF INHALATION ×2 (09:20→21:18)
[2024-10-11 09:26] VITALS: BP 122/67; PULSE 78
[2024-10-11 12:49] VITALS: BP 132/74; PULSE 64; RESP 17; TEMP 36.1; O2SAT 96
[2024-10-11 13:45] VITALS: BMI 41.1
[2024-10-12 02:29] VITALS: RESP 16
[2024-10-12] MEDS: Enoxaparin 40 MG/0.4 ML Syringe SC (05:26)
[2024-10-12] MEDS: Ibuprofen 200 MG Tablet PO ×4 (05:28→23:24)
[2024-10-12 05:50] LABS: Absolute Lymphocyte Count 2.13 X10^3/uL (0.83-4.51); Absolute Neutrophil Count 4.8 X10^3/uL (2.0-7.7); Basophil# 0.07 X10^3/uL; Basophil% 0.9 % (0-1); Eosinophil# 0.17 X10^3/uL; Eosinophils% 2.1 % (0-5); Hemoglobin 12.6 g/dL (12.0-15.0); Lymphocyte # 2.13 X10^3/ul (0.83-4.51); Lymphocyte % 26.9 % (19-41); Mean Corp Hgb Conc 32.3 g/dL (32-36); Mean Corpuscular Hgb 29.6 pg (27.0-32.0); Mean Corpuscular Volume 91.8 fL (81-99); Mean Platelet Vol. 9.8 fl (6.2-12.0); Monocyte# 0.64 X10^3/uL; Monocyte% 8.1 % (0-10); NRBC Flagged by Analyzer 0 % (0-5); Neutrophil # 4.84 X10^3/uL (2.7-7.7); Neutrophil % 61.2 % (47-70); Platelet Count 278 K/mm3 (150-450); RBC Distribution Width CV 13.2 % (11.6-14.6); RBC Distribution Width SD 44.5 fl (35.1-43.9); Red Blood Count 4.25 M/mm3 (4.2-5.4); White Blood Count 7.9 K/mm3 (4.4-11.0)
[2024-10-12 06:39] LABS: Anion Gap 10 (5-15); BUN 27 mg/dL (4-19); BUN/Creat Ratio 23.9 RATIO (10-20); Calcium,Total 9.7 mg/dL (7.6-11.0); Carbon Dioxide 23.8 mmol/L (21.0-32.0); Chloride 108 mmol/L (98-108); Creatinine, Serum 1.12 mg/dL (0.70-1.20); EST Glomerular Filtration Rate 51 (>60); Estimated Creatinine Clearance 48.81 ml/min (50-250); Glucose 101 mg/dL (70-99); Sodium Level 142 mmol/L (133-145)
--- NOTE | 2024-10-12 08:37 | NURSING ---
Insurance Sales Supervisor Note; MDS for 10/11/2024 Complete
[2024-10-12 09:07] VITALS: BP 129/80; PULSE 73; RESP 16; TEMP 36.3; O2SAT 97
[2024-10-12] MEDS: Multivitamin (Healthy Eyes) Capsule 1 CAP PO (09:11)
[2024-10-12] MEDS: Loratadine 10 MG Tablet PO (09:11)
[2024-10-12] MEDS: Fluticasone/Salmeterol 232-14 Inhaler 1 PUFF INHALATION ×2 (09:11→20:42)
[2024-10-12] MEDS: Ascorbic Acid 500 MG Tablet PO (09:12)
[2024-10-12] MEDS: amLODIPine 5 MG Tablet PO (09:12)
[2024-10-12] MEDS: Pantoprazole Sodium 40 MG Tablet PO (09:12)
[2024-10-12] MEDS: Cholecalciferol (VIT D3) 25 MCG TABLET (1,000 UNITS) 50 MCG PO (09:12)
[2024-10-12] MEDS: Umeclidinium Bromide Inhaler 1 PUFF INHALATION (09:12)
[2024-10-12] MEDS: Calcium Carbonate 500 MG Tablet PO (09:12)
[2024-10-12] MEDS: Omega-3 Acid Ethyl Esters 1 GM Capsule PO (09:12)
[2024-10-12] MEDS: Acetaminophen 500 MG Tablet 1000 MG PO (09:14)
[2024-10-12] MEDS: Nystatin Powder 15gm Bottle 1 APPLIC TOPICAL ×2 (09:20→20:42)
--- NOTE | 2024-10-12 11:06 | CASEMGMT ---
Social Work IDT met with patient at bedside and dtr via conference call for care plan meeting. Discussed patient's progress in PT/OT/SN/RDN. Confirmed insurance issued DC 10/13 and [facility]. Pt did request information on medical alert. SW provided resources. Pt denied any additional needs. Mica Nichols BURNING SUPERVISOR POSTING MACHINE OPERATOR
[2024-10-13 01:00] VITALS: PULSE 68; RESP 16
[2024-10-13] MEDS: Enoxaparin 40 MG/0.4 ML Syringe SC (05:28)
[2024-10-13] MEDS: Ibuprofen 200 MG Tablet PO ×2 (05:28→11:32)
[2024-10-13 10:00] VITALS: BP 110/66; PULSE 64; RESP 17; TEMP 36.6; O2SAT 96
[2024-10-13] MEDS: Loratadine 10 MG Tablet PO (10:02)
[2024-10-13] MEDS: Multivitamin (Healthy Eyes) Capsule 1 CAP PO (10:03)
[2024-10-13] MEDS: Fluticasone/Salmeterol 232-14 Inhaler 1 PUFF INHALATION (10:03)
[2024-10-13] MEDS: Omega-3 Acid Ethyl Esters 1 GM Capsule PO (10:03)
[2024-10-13] MEDS: Umeclidinium Bromide Inhaler 1 PUFF INHALATION (10:03)
[2024-10-13] MEDS: amLODIPine 5 MG Tablet PO (10:04)
[2024-10-13] MEDS: Pantoprazole Sodium 40 MG Tablet PO (10:04)
[2024-10-13] MEDS: Nystatin Powder 15gm Bottle 1 APPLIC TOPICAL (10:04)
[2024-10-13] MEDS: Cholecalciferol (VIT D3) 25 MCG TABLET (1,000 UNITS) 50 MCG PO (10:05)
[2024-10-13] MEDS: Calcium Carbonate 500 MG Tablet PO (10:05)
[2024-10-13] MEDS: Ascorbic Acid 500 MG Tablet PO (10:05)
[2024-10-13 12:00] VITALS: BP 130/78; PULSE 81; RESP 16; TEMP 36.6; O2SAT 93
--- NOTE | 2024-10-17 09:58 | MDS.RN ---
Information for the MDS was obtained from review of the clinical record, interview of resident, staff, and direct observation of resident?s care.
== END 2024-10-13 12:30 | disposition home health service (06) | DRG 560 ==
PROVIDERS: Admitting Provider Family Medicine Geriatric Medicine; PCP Nurse Practitioner Family; Referring Provider Family Medicine Geriatric Medicine; Visit Provider Family Medicine Geriatric Medicine
DX: S32.9XXD Fracture of unspecified parts of lumbosacral spine and pelvis, subsequent encounter for fracture with routine healing (principal); Z68.41 Body mass index [BMI] 40.0-44.9, adult; E11.9 Type 2 diabetes mellitus without complications; J44.9 Chronic obstructive pulmonary disease, unspecified; I10 Essential (primary) hypertension; E66.01 Morbid (severe) obesity due to excess calories; E78.00 Pure hypercholesterolemia, unspecified; E55.9 Vitamin D deficiency, unspecified; K21.9 Gastro-esophageal reflux disease without esophagitis; J30.9 Allergic rhinitis, unspecified; H35.30 Unspecified macular degeneration; W19.XXXD Unspecified fall, subsequent encounter; J45.909 Unspecified asthma, uncomplicated; Z79.899 Other long term (current) drug therapy; Z79.82 Long term (current) use of aspirin; Z79.51 Long term (current) use of inhaled steroids
CPT/HCPCS: 36415; 80048; 80061; 82306; 85025; 97110; 97116; 97162; 97166; 97530; 97535; 97802; A4216